=== PATIENT | female | born 1935 | race Caucasian/White ===

== ENCOUNTER 2017-04-18 00:23 | Inpatient (IN) | payer MEDICARE ==
[2017-04-18] MEDS ORDERED: traMADol TAB* 50 MG PO ONE (01:20)
[2017-04-18] MEDS ORDERED: NS 0.9% 1000 ML* 1,000 ML IV ONE (03:05)
[2017-04-18] MEDS ORDERED: Docusate CAP* 100 MG PO PRN (04:36)
[2017-04-18] MEDS ORDERED: Al Hydrox/Mg Hydrox/Simet LIQ* 30 ML UDC PO PRN (04:36)
[2017-04-18] MEDS ORDERED: Acetaminophen TAB* 325 MG PO PRN (04:36)
[2017-04-18] MEDS ORDERED: Ondansetron INJ* 2 MG/ML VIAL IV PRN ×2 (04:36→17:28)
[2017-04-18] MEDS ORDERED: Morphine INJ* 2 MG/ML 1 ML SYRINGE (TWO MG - NEW SYRINGE VERSION) IV PRN (04:40)
[2017-04-18 04:42] LABS: Hematocrit 40 % (35-47); Hemoglobin 13.9 g/dl (12.0-16.0); Mean Corpuscular HGB Conc 34 g/dl (31-36); Mean Corpuscular Hemoglobin 33 pg (27-31); Mean Corpuscular Volume 97 fL (80-97); Mean Platelet Volume 7 um3 (7.4-10.4); Red Blood Count 4.16 10^6/ul (4.0-5.4); Red Cell Distribution Width 13 % (10.5-15); White Blood Count 9.9 10^3/ul (3.5-10.8)
[2017-04-18 05:02] LABS: Albumin 3.7 g/dL (3.2-5.2); BUN/Creatinine Ratio 22.7 (8-20); Calcium 9.3 mg/dL (8.6-10.3); EGFR African American 95.9 (>60); EGFR Non-African American 74.5 (>60); Total Bilirubin 0.5 mg/dL (0.2-1.0); Total Protein 6.7 g/dL (6.4-8.9)
[2017-04-18] MEDS ORDERED: Heparin VIAL(*) 5000 UNITS/ML VIAL (FIVE THOUSAND) SUBCUT SCH (06:00)
--- NOTE | 2017-04-18 06:17 | ED ---
Babatunde Bell Gabriel scribed for Shawn Sheridan on 04/18/17 at 0156 . Lower Extremity - HPI Summary HPI Summary: This patient is a 81 year old F BIBA to [facility] with a chief complaint of LLE pain since 2300. The patient rates the pain 6/10 in severity. Patient states that she heard snap in left femur when she moved in her bed and is now unable to move that leg. - History of Current Complaint Chief Complaint: EDExtremityLower Stated Complaint: LEFT UPPER LEG PAIN Time Seen by Provider: 04/18/17 01:07 Hx Obtained From: Patient Mechanism Of Injury: Other - rolling in bed Onset of Pain: Immediate Onset/Duration: Still Present Severity Currently: Moderate Pain Intensity: 6 Pain Scale Used: 0-10 Numeric Timing: Constant - Allergies/Home Medications Allergies/Adverse Reactions: Allergies Allergy/AdvReac Type Severity Reaction Status Date / Time Amoxicillin [From Augmentin] Allergy Severe Hives Verified 04/18/17 00:44 Clavulanic Acid Allergy Severe Hives Verified 04/18/17 00:44 [From Augmentin] Metronidazole Allergy Diarrhea Verified 04/18/17 00:44 Azithromycin [From Zithromax] AdvReac See Comment Verified 04/18/17 00:44 PMH/Surg Hx/FS Hx/Imm Hx Previously Healthy: No Endocrine/Hematology History: Denies: Hx Diabetes Cardiovascular History: Reports: Hx Hypercholesterolemia Denies: Hx Hypertension, Hx Pacemaker/ICD GI History: Reports: Other GI Disorders - H. 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, eye lid, chest - Surgical History Surgery Procedure, Year, and Place: BILATERAL CATARACT; NASAL SX FOR BASAL CELL CARCINOMA - Immunization History Date of Tetanus Vaccine: utd Date of Influenza Vaccine: 2016 Infectious Disease History: No Infectious Disease History: Denies: Traveled Outside the [place] in Last 30 Days - Family History Known Family History: Negative: Cardiac Disease - Social History Lives: Alone Alcohol Use: Daily Alcohol Amount: 1 glass wine with dinner Substance Use Type: Reports: None Smoking Status (MU): Never Smoked Tobacco Review of Systems Positive: Other - pain in LLE Negative: Slurred Speech All Other Systems Reviewed And Are Negative: Yes Physical Exam - Summary Physical Exam Summary: Appearance: Well appearing, no pain distress Skin: warm, dry, reflects adequate perfusion Head/face: normal Eyes: EOMI, OCTAVIANO ENT: normal Neck: supple, non-tender Respiratory: CTA, breath sounds present Cardiovascular: RRR, pulses symmetrical Abdomen: non-tender, soft Bowel: present Musculoskeletal: normal, strength/ROM intact Extremities: tenderness over the left thigh and restricted ROM of LLE. No neurovascular deficits. Neuro: normal, sensory motor intact, A&Ox3 Triage Information Reviewed: Yes Vital Signs On Initial Exam: Initial Vitals Temp Pulse Resp BP Pulse Ox 99.2 F 80 18 107/42 98 04/18/17 00:43 04/18/17 00:43 04/18/17 00:43 04/18/17 00:43 04/18/17 00:43 Vital Signs Reviewed: Yes - Rajni Coma Scale Coma Scale Total: 15 Diagnostics - Vital Signs Vital Signs Temp Pulse Resp BP Pulse Ox 04/18/17 00:43 99.2 F 80 18 107/42 98 - Laboratory Lab Results: Lab Results 04/18/17 04/18/17 04/18/17 Range/Units 04:30 04:30 04:30 WBC 9.9 (3.5-10.8) 10^3/ul RBC 4.16 (4.0-5.4) 10^6/ul Hgb 13.9 (12.0-16.0) g/dl Hct 40 (35-47) % MCV 97 (80-97) fL MCH 33 H (27-31) pg MCHC 34 (31-36) g/dl RDW 13 (10.5-15) % Plt Count 234 (150-450) 10^3/ul MPV 7 L (7.4-10.4) um3 Neut % (Auto) 74.4 (38-83) % Lymph % (Auto) 18.0 L (25-47) % Clinch % (Auto) 5.9 (1-9) % Eos % (Auto) 0.8 (0-6) % Baso % (Auto) 0.9 (0-2) % Absolute Neuts (auto) 7.3 (1.5-7.7) 10^3/ul Absolute Lymphs (auto) 1.8 (1.0-4.8) 10^3/ul Absolute Monos (auto) 0.6 (0-0.8) 10^3/ul Absolute Eos (auto) 0.1 (0-0.6) 10^3/ul Absolute Basos (auto) 0.1 (0-0.2) 10^3/ul Absolute Nucleated RBC 0 10^3/ul Nucleated RBC % 0 INR (Anticoag Therapy) 0.98 (0.89-1.11) APTT 26.1 (26.0-36.3) seconds Sodium 137 (133-145) mmol/L Potassium 4.0 (3.5-5.0) mmol/L Chloride 103 (101-111) mmol/L Carbon Dioxide 26 (22-32) mmol/L Anion Gap 8 (2-11) mmol/L BUN 17 (6-24) mg/dL Creatinine 0.75 (0.51-0.95) mg/dL Est GFR ( Amer) 95.9 (>60) Est GFR (Non-Af Amer) 74.5 (>60) BUN/Creatinine Ratio 22.7 H (8-20) Glucose 121 H (70-100) mg/dL Calcium 9.3 (8.6-10.3) mg/dL Total Bilirubin 0.50 (0.2-1.0) mg/dL AST 21 (13-39) U/L ALT 17 (7-52) U/L Alkaline Phosphatase 67 (34-104) U/L Total Protein 6.7 (6.4-8.9) g/dL Albumin 3.7 (3.2-5.2) g/dL Globulin 3.0 (2-4) g/dL Albumin/Globulin Ratio 1.2 (1-3) Blood Type Antibody Screen 04/18/17 Range/Units 04:30 WBC (3.5-10.8) 10^3/ul RBC (4.0-5.4) 10^6/ul Hgb (12.0-16.0) g/dl Hct (35-47) % MCV (80-97) fL MCH (27-31) pg MCHC (31-36) g/dl RDW (10.5-15) % Plt Count (150-450) 10^3/ul MPV (7.4-10.4) um3 Neut % (Auto) (38-83) % Lymph % (Auto) (25-47) % Clinch % (Auto) (1-9) % Eos % (Auto) (0-6) % Baso % (Auto) (0-2) % Absolute Neuts (auto) (1.5-7.7) 10^3/ul Absolute Lymphs (auto) (1.0-4.8) 10^3/ul Absolute Monos (auto) (0-0.8) 10^3/ul Absolute Eos (auto) (0-0.6) 10^3/ul Absolute Basos (auto) (0-0.2) 10^3/ul Absolute Nucleated RBC 10^3/ul Nucleated RBC % INR (Anticoag Therapy) (0.89-1.11) APTT (26.0-36.3) seconds Sodium (133-145) mmol/L Potassium (3.5-5.0) mmol/L Chloride (101-111) mmol/L Carbon Dioxide (22-32) mmol/L Anion Gap (2-11) mmol/L BUN (6-24) mg/dL Creatinine (0.51-0.95) mg/dL Est GFR ( Amer) (>60) Est GFR (Non-Af Amer) (>60) BUN/Creatinine Ratio (8-20) Glucose (70-100) mg/dL Calcium (8.6-10.3) mg/dL Total Bilirubin (0.2-1.0) mg/dL AST (13-39) U/L ALT (7-52) U/L Alkaline Phosphatase (34-104) U/L Total Protein (6.4-8.9) g/dL Albumin (3.2-5.2) g/dL Globulin (2-4) g/dL Albumin/Globulin Ratio (1-3) Blood Type A Positive Antibody Screen Negative Result Diagrams: 04/18/17 04:30 04/18/17 04:30 Lab Statement: Any lab studies that have been ordered have been reviewed, and results considered in the medical decision making process. - Radiology CXR Radiology Interpretation Completed By: ED Physician - Mass in left upper lobe pelvis xray Radiology Interpretation Completed By: ED Physician - no acute disease Femur Xray Radiology Interpretation Completed By: ED Physician - Fracture of the left femur - EKG 4:41 Cardiac Rate: NL EKG Rhythm: Sinus Rhythm - 78BPM EKG Interpretation: no acute changes Lower Extremity Course/Dx - Course Assessment/Plan: This patient is a 81 year old F BIBA to [facility] with a chief complaint of LLE pain since 2300. An EKG reveals NSR at 78 BPM. CXR reveals, left upper lobe mass. Femur Xray left femur fracture. Pelvis Xray no acute disease. Blood was drawn with no significant abnormalities. In the ED course the patient was given IV fluids, morphine, and tramadol. We discussed patient care with Dr. Jean and they recommended agreed to admit the patient for a left femur fracture and a lung mass. Patient will be admitted with follow up from Dr. Jean. The patient is agreeable with this plan. - Diagnoses Differential Diagnosis/HQI/PQRI: Positive: Contusion, Sprain Provider Diagnoses: Left femoral shaft fracture, Lung mass Discharge - Discharge Plan Condition: Stable Disposition: ADMITTED TO [facility] documentation as recorded by the Babatunde lira Gabriel accurately reflects the service I personally performed and the decisions made by Fatimah myers Emmanuel.
[2017-04-18 06:45] LABS: Urine Bacteria Absent (Absent); Urine Bilirubin Negative (Negative); Urine Glucose Negative (Negative); Urine Nitrite Negative (Negative)
--- NOTE | 2017-04-18 07:38 | HP ---
CC: Savannah Egan MD * HISTORY AND PHYSICAL: DATE OF ADMISSION: 04/18/17 TIME OF EVALUATION: 0400 PRIMARY CARE PHYSICIAN: Savannah Egan MD CHIEF COMPLAINT: Left leg pain. HISTORY OF PRESENT ILLNESS: This is a 81-year-old female with an unremarkable past medical history who states she rolled over in bed last evening when she heard a snap on her left leg with significant amount of pain. She states she was going to try to get up to ambulate to the bathroom to take some Tylenol, but she was unable to weight bear. She then got down on the floor and thought she could crawl to the bathroom to get Tylenol, but relates the pain was too significant to even move. Luckily she was close to her phone and she was able to call EMS for further evaluation. She states that she is very careful when she rolls over in bed from side to side slowly due to her significant amount of arthritis. She states she had the cat on her legs and she was a little bit more faster and aggressive with her rolling, and then that is when she heard the snap in her left leg. She has no history of broken bones in the past. She states she took the tramadol this evening in the emergency room, and her pain is better controlled but still present. She is worried about the side effects of taking morphine, and is hesitant to do so. She denies any chest pain or shortness of breath. No nausea, vomiting. No abdominal pain. She states she ambulates frequently. She does Alvaro-Chi and tries to remain very active. Otherwise remaining review of systems negative in the emergency room. The patient had imaging, found to have a femur fracture and was referred to the hospitalist service for further evaluation. She was given Tramadol 50 mg p.o. PAST MEDICAL HISTORY: Arthritis. MEDICATIONS: 1. The patient takes several supplements. 2. She takes Tylenol as needed. ALLERGIES: AMOXICILLIN, CLAVULANIC ACID, METRONIDAZOLE, AZITHROMYCIN. FAMILY HISTORY: Mother at age 89 from gastric cancer. Father at age 91 from old age. SOCIAL HISTORY: The patient lives alone. She is independent of her ADLs. Her healthcare proxy is her son and her daughter. Codes status is full code. No tobacco or illicit drug use. She occasionally has a glass of wine. REVIEW OF SYSTEMS: A 14-point review of systems reviewed, pertinent positives and negatives as mentioned in the HPI; otherwise negative. PHYSICAL EXAMINATION GENERAL: No acute distress, resting comfortably. VITAL SIGNS: Temp 99.2, pulse rate 80, respiratory rate 18, oxygen saturation 98 % on room air, blood pressure 107/42. HEENT: Head normocephalic. Pupils are equal and reactive. Anicteric. Oropharynx - mucous membranes are dry. NECK: Supple. No lymphadenopathy RESPIRATORY: Diminished breath sounds. No wheeze, rhonchi, or rales. CARDIAC: Regular rate and rhythm. No murmurs, rubs or gallops. ABDOMEN: Soft, nontender, nondistended. EXTREMITIES: No clubbing, cyanosis or edema. +1 DP's bilateral. The patient with limited range of motion on her left lower lower extremity. Knee immobilizer in place. DIAGNOSTIC STUDIES/LAB DATA: White count 9.9, hemoglobin 13.9, hematocrit 40, platelets 234. Remaining blood work is pending. Femur x-ray shows fracture per my wet read in two locations. Chest x-ray also looks to be a left upper lobe mass that is new from her chest x - ray in 2010. ASSESSMENT: This is a 81-year-old female with an unremarkable past medical history who suffered a femur fracture while rolling in bed. 1. Femur fracture. Assessment: This is concerning that just rolling created a femur fracture; and, with the chest x-ray findings that this a pathologic fracture. Plan: We will keep her NPO for now. Followup with ortho in the morning in case they want to do surgery for her fracture. We will also contact Oncology for further evaluation and workup of her mass; may start with pulmonary evaluation. We will hold off on further evaluation at this time and defer to the morning team. In terms of her pain control, we will continue the Tramadol as that does seem to help and Tylenol. We will give her morphine for break- through pain, and start her on a bowel regimen. 2. FEN: We will place her on IV fluids. Keep her NPO for now. 3. DVT prophylaxis: The patient's score is high risk. We will place on heparin subcutaneously t.i.d. 4. Code status: Full code. TIME SPENT: Patient time greater than 60 minutes were spent doing history and physical, more than half the time spent in direct patient contact. [id number]/[facility] #: [id number] [facility]
--- NOTE | 2017-04-18 07:56 | RAD ---
INDICATION: Left hip pain after rolling over in bed COMPARISON: Right hip radiograph November 01, 2016 TECHNIQUE: An AP view of the pelvis and 6 views of the left femur were obtained. FINDINGS: AP view of the pelvis shows degenerative changes of the bilateral hips that includes joint space narrowing, sclerotic change of the articulating surfaces, marginal osteophyte formation and right greater than left bony remodeling of the femoral heads. There is cortical discontinuity at the right superior pubic ramus which appears similar to the prior hip radiograph. On the lateral view of the diaphyseal and distal metaphysis of the left femur there are obliquely oriented lucent lines these are faintly visible on the AP view of the femur at the level of the diaphysis. The bones are otherwise intact and appropriately aligned. IMPRESSION: 1. Degenerative changes of bilateral hips. 2. Cortical discontinuity at the right superior pubic ramus appears similar to the November 01, 2016 pelvis radiograph. Please correlate to pain focal to the right symphysis pubis. 3. Lucent line seen overlying the mid-level and distal left femur which could represent a nondisplaced fracture in the correct clinical setting. Alternatively this is simply a nutrient vessel.
--- NOTE | 2017-04-18 09:55 | PN ---
Progress Note - Progress Note Date of Service: 04/18/17 Note: Spoke with radiology. Patient has a large mass of her chest suspicious for lung cancer. Suggest CT chest, abd, pelvis with contrast. Message relayed to Dr. Paiz.
--- NOTE | 2017-04-18 10:01 | RAD ---
Indication: Evaluate for femur fracture. Correlation is made with previous x-ray done earlier the same day. CT of the left femur was obtained in the axial plane. Sagittal and coronal reconstructed images were obtained. There is a cortical defect in the lateral half of the femur consistent with a nondisplaced fracture of the femur. No significant displacement is noted. There is some adjacent soft tissue hematoma noted. There is some bone marrow replacement in this area. Additionally the bony windows demonstrate some areas of thinning of the cortex in the anterior portion of the midshaft of the femur. Areas of lucency are noted and this may represent a pathologic fracture. IMPRESSION: Nondisplaced fracture mid shaft of the femur with adjacent hematoma. There is suggestion of some bone marrow replacement noted with some irregularity and lucency within the cortex at the level of the fracture and underlying pathologic fracture should BE considered. Differential diagnosis includes metastatic lesion or myeloma. Other bony metabolic diseases are not excluded..
--- NOTE | 2017-04-18 10:24 | RAD ---
INDICATION: Femur fracture. COMPARISON: Comparison is made with a prior chest x-ray study from February 02, 2015. TECHNIQUE: A portable view of the chest was obtained. FINDINGS: The heart is within normal limits in size. There is a large mass in the left lung measuring 9.8 x 8.6 cm in size. This projects over the left hilum. The lungs are otherwise clear. No pleural effusion is seen. The results of this examination were discussed the patient's PA. IMPRESSION: LARGE MASS IN THE LEFT LUNG. RECOMMEND A CT OF THE CHEST, ABDOMEN AND PELVIS WITH CONTRAST.
[2017-04-18] MEDS: traMADol TAB* 50 MG PO PRN (11:45)
--- NOTE | 2017-04-18 12:44 | HP ---
AMENDED REPORT NOW INCLUDES COSIGNER DESIGNATION - ESIGNED BEFORE ADJUSTMENT PREOPERATIVE HISTORY AND PHYSICAL: DATE OF ADMISSION: 04/18/17 PROVIDER: Crescencio Mitchell MD * (DICTATED BY CHERELLE MOISE) PRIMARY CARE PROVIDER: Savannah Egan MD CHIEF COMPLAINT: Upon arrival to the emergency room, left leg pain. HISTORY OF PRESENT ILLNESS: This is a 81-year-old female with an unremarkable past medical history who states that she rolled over in bed last evening when she heard a snap of her left leg associated with a significant amount of pain. She had no trauma to the area. She states that her cat was lying on her legs and she generally does take caution when rolling over due to a history of arthritis. After hearing the snap, she got up to try and ambulate to the bathroom, did take some Tylenol, but she was unable to bear weight. She was able to reach a phone and called EMS. She has no history of falls or broken bones. The patient denies any trauma to the area. She does note that her left hip felt "funny" in position prior to hearing the snap. She participates in leti chi twice a week and chair yoga twice a week, remaining active. She generally cares for herself. She lives on her own and completes her ADLs independently. She does have children, but they do not live in this state. Her healthcare proxy is her son and her daughter. Today, the patient's pain has been well controlled through use of tramadol. She is hesitant to take any stronger narcotic pain medications and she does not like how they make her feel and she generally does not like to take medications when not needed. She has no history of heart disease or pulmonary disease that she knows of. She has never had a heart attack or stroke. She does not complain of any easy bleeding. She does have easy bruising, which she associates with age. She has had anesthesia once in the past with no negative side effects. The patient denies today any dizziness, chest pain, shortness of breath, left leg pain, numbness or tingling of the left leg, fevers, chills, or abdominal upset. PAST MEDICAL HISTORY: Significant for arthritis. PAST SURGICAL HISTORY: Nasal flap for basal cell carcinoma of the nose without complication. MEDICATIONS: 1. Multivitamin. 2. Calcium tablet. 3. Magnesium tablet. 4. Aspirin 81 mg. 5. Tylenol p.r.n. ALLERGIES: AMOXICILLIN and AUGMENTIN, both resulting in hives. METRONIDAZOLE making the patient feel lightheaded, AZITHROMYCIN resulting in loss of smell for 2 years, which gradually returned. FAMILY HISTORY: Mother is , has a history of gastric cancer. Father per the patient from old age. SOCIAL HISTORY: Lives alone and cares for self. Full code status. No tobacco use. No illicit drug use. No past history of tobacco use, illicit drug use. Drinks one-half cup of wine with dinner daily. REVIEW OF SYSTEMS: General: Denies fevers, chills. No known anesthesia problems. HEENT: Denies headache, lightheadedness, or syncopal episode. Cardiothoracic: Negative for chest pain, heart palpitations, irregular heart beats or edema. Pulmonary: Negative for shortness of breath. Negative for chronic cough. Negative for COPD or asthma. GI: No nausea, vomiting, diarrhea , or constipation. : No dysuria. Musculoskeletal: Chronic arthritic pain. No fracture history aside from current acute problem. Neuro: No paresthesias, numbness, strokes. Integumentary: No abrasions, lesions, rashes, or open sores. Endocrine: No diabetes or thyroid issues. Hematology: No easy bleeding, DVT or PE history. Does have a history of easy bruising. PHYSICAL EXAMINATION GENERAL: Alert and oriented, 81-year-old in no acute distress with appropriate mood and affect. VITALS: Temperature 98.8 orally, pulse 79 beats per minute, respiratory rate 16 , O2 saturation 97% on room air, blood pressure 114/49. HEENT: Normocephalic, atraumatic. Hearing and vision are grossly intact. Extraocular movements are intact. PULMONARY: Normal work of breathing. No wheezes, rales, or rhonchi appreciated. CARDIO: Regular rate and rhythm. S1, S2. No murmurs appreciated. No pedal edema. MUSCULOSKELETAL: Left leg in immobilizer. No obvious deformity or rotation in this position. No range of motion was attempted with the left lower extremity due to pain. Dorsi flexion and plantar flexion are intact bilaterally. Sensation to light touch is intact throughout bilateral lower extremities. VASCULAR: Dorsalis pedis and posterior tibial pulses are 2+ and symmetric bilaterally. IMPRESSION: Left femur fracture in addition to a large mass in left lung. PLAN: Dr. Mitchell to take the patient to the OR at roughly 5 o'clock today, for left femur ORIF. Hospitalist service will continue to work up the lung mass and will see the patient prior to procedure. CHERELLE MOISE [id number]/[facility] #: [id number] NILSA
[2017-04-18] MEDS ORDERED: ceFAZolin 2 GM PREMIX (*) 2 GM/50 ML BAG IVPB ONE (17:02)
[2017-04-18] MEDS ORDERED: HYDROcodone/ACETAMIN 5-325 MG* 1 TAB PO PRN (17:28)
[2017-04-18] MEDS ORDERED: PROCHLORPERAZINE INJ 5 MG/ML 2 ML VIAL IV PRN (17:28)
[2017-04-18] MEDS ORDERED: oxyCODONE/Acetamin 5/325 MG* TAB PO PRN (17:28)
[2017-04-18] MEDS ORDERED: fentaNYL* 50 MCG/ML 2 ML VIAL (100 MCG VIAL) IV PRN (17:28)
[2017-04-18] MEDS ORDERED: Midazolam* 1 MG/ML 2 ML VIAL (2 MG) ONE (17:38)
[2017-04-18] MEDS ORDERED: fentaNYL* 50 MCG/ML 2 ML VIAL (100 MCG VIAL) ONE ×3 (17:38→21:33)
[2017-04-18] MEDS ORDERED: Bupivacaine 0.5% SDV PF* 30 ML VIAL ONE (17:40)
--- NOTE | 2017-04-18 17:45 | PN ---
Subjective Date of Service: 04/18/17 Interval History: Pt seen and examined. Pain with movement. No SOB. Hx of osteopenia w/ gradual worsening. Objective Active Medications: Acetaminophen (Tylenol Tab*) 650 mg PO Q4H PRN PRN Reason: FEVER/PAIN Hydrocodone Bitart/Acetaminophen ([place]inford 5-325 Tab*) 1 tab PO ONCE PRN PRN Reason: PAIN - MODERATE Stop: 04/18/17 21:30 Al Hydrox/Mg Hydrox/Simethicone (Maalox Plus*) 30 ml PO Q6H PRN PRN Reason: INDIGESTION Docusate Sodium (Colace Cap*) 100 mg PO BID PRN PRN Reason: CONSTIPATION Fentanyl Citrate (Fentanyl*) 50 mcg IV Q5M PRN PRN Reason: PAIN - MODERATE Stop: 04/18/17 21:30 Sodium Chloride (Ns 0.9% 1000 Ml*) 1,000 mls @ 100 mls/hr IV PER RATE ZEFERINO Cefazolin Sodium/Dextrose (Kefzol 2 Gm Premix(*)) 2 gm in 50 mls @ 100 mls/hr IVPB ONCALL ONE Stop: 04/19/17 08:29 Morphine Sulfate (Morphine Inj (Syringe)*) 2 mg IV Q4H PRN PRN Reason: PAIN - MILD Last Admin: 04/18/17 07:14 Dose: 2 mg Ondansetron HCl (Zofran Inj*) 4 mg IV Q4H PRN PRN Reason: NAUSEA/VOMITING Ondansetron HCl (Zofran Inj*) 4 mg IV ONCE PRN PRN Reason: NAUSEA/VOMITING Stop: 04/18/17 21:30 Oxycodone/Acetaminophen (Percocet 5/325 Tab*) 1 tab PO ONCE PRN PRN Reason: PAIN - MODERATE Stop: 04/18/17 21:30 Prochlorperazine Edisylate (Compazine Inj*) 5 mg IV ONCE PRN PRN Reason: NAUSEA/VOMITING Stop: 04/18/17 21:30 Senna (Senokot Tab*) 1 tab PO BID PRN PRN Reason: CONSTIPATION Tramadol HCl (Ultram*) 50 mg PO Q6H PRN PRN Reason: PAIN Last Admin: 04/18/17 11:45 Dose: 50 mg Vital Signs 04/18/17 04/18/17 04/18/17 05:27 05:28 05:30 Temperature Pulse Rate 80 80 79 Respiratory Rate Blood Pressure 115/43 (mmHg) O2 Sat by Pulse 92 92 92 Oximetry 04/18/17 04/18/17 04/18/17 06:00 06:05 07:14 Temperature 98.8 F Pulse Rate 79 Respiratory 16 16 16 Rate Blood Pressure 114/49 (mmHg) O2 Sat by Pulse 97 Oximetry 04/18/17 04/18/17 04/18/17 07:15 09:47 11:36 Temperature 98.3 F Pulse Rate 80 Respiratory 16 16 17 Rate Blood Pressure 118/56 (mmHg) O2 Sat by Pulse 96 Oximetry 04/18/17 04/18/17 04/18/17 11:45 14:00 15:21 Temperature 98.8 F Pulse Rate 77 Respiratory 16 14 11 Rate Blood Pressure 116/51 (mmHg) O2 Sat by Pulse 94 Oximetry Oxygen Devices in Use Now: None Result Diagrams: 04/18/17 04:30 04/18/17 04:30 Additional Lab and Data: Lab Results 04/18/17 04/18/17 04/18/17 Range/Units 04:30 04:30 04:30 WBC 9.9 (3.5-10.8) 10^3/ul RBC 4.16 (4.0-5.4) 10^6/ul Hgb 13.9 (12.0-16.0) g/dl Hct 40 (35-47) % MCV 97 (80-97) fL MCH 33 H (27-31) pg MCHC 34 (31-36) g/dl RDW 13 (10.5-15) % Plt Count 234 (150-450) 10^3/ul MPV 7 L (7.4-10.4) um3 Neut % (Auto) 74.4 (38-83) % Lymph % (Auto) 18.0 L (25-47) % [place] % (Auto) 5.9 (1-9) % Eos % (Auto) 0.8 (0-6) % Baso % (Auto) 0.9 (0-2) % Absolute Neuts (auto) 7.3 (1.5-7.7) 10^3/ul Absolute Lymphs (auto) 1.8 (1.0-4.8) 10^3/ul Absolute Monos (auto) 0.6 (0-0.8) 10^3/ul Absolute Eos (auto) 0.1 (0-0.6) 10^3/ul Absolute Basos (auto) 0.1 (0-0.2) 10^3/ul Absolute Nucleated RBC 0 10^3/ul Nucleated RBC % 0 INR (Anticoag Therapy) 0.98 (0.89-1.11) APTT 26.1 (26.0-36.3) seconds Sodium 137 (133-145) mmol/L Potassium 4.0 (3.5-5.0) mmol/L Chloride 103 (101-111) mmol/L Carbon Dioxide 26 (22-32) mmol/L Anion Gap 8 (2-11) mmol/L BUN 17 (6-24) mg/dL Creatinine 0.75 (0.51-0.95) mg/dL Est GFR ( Amer) 95.9 (>60) Est GFR (Non-Af Amer) 74.5 (>60) BUN/Creatinine Ratio 22.7 H (8-20) Glucose 121 H (70-100) mg/dL Calcium 9.3 (8.6-10.3) mg/dL Total Bilirubin 0.50 (0.2-1.0) mg/dL AST 21 (13-39) U/L ALT 17 (7-52) U/L Alkaline Phosphatase 67 (34-104) U/L Total Protein 6.7 (6.4-8.9) g/dL Albumin 3.7 (3.2-5.2) g/dL Globulin 3.0 (2-4) g/dL Albumin/Globulin Ratio 1.2 (1-3) Blood Type Antibody Screen 04/18/17 Range/Units 04:30 WBC (3.5-10.8) 10^3/ul RBC (4.0-5.4) 10^6/ul Hgb (12.0-16.0) g/dl Hct (35-47) % MCV (80-97) fL MCH (27-31) pg MCHC (31-36) g/dl RDW (10.5-15) % Plt Count (150-450) 10^3/ul MPV (7.4-10.4) um3 Neut % (Auto) (38-83) % Lymph % (Auto) (25-47) % [place] % (Auto) (1-9) % Eos % (Auto) (0-6) % Baso % (Auto) (0-2) % Absolute Neuts (auto) (1.5-7.7) 10^3/ul Absolute Lymphs (auto) (1.0-4.8) 10^3/ul Absolute Monos (auto) (0-0.8) 10^3/ul Absolute Eos (auto) (0-0.6) 10^3/ul Absolute Basos (auto) (0-0.2) 10^3/ul Absolute Nucleated RBC 10^3/ul Nucleated RBC % INR (Anticoag Therapy) (0.89-1.11) APTT (26.0-36.3) seconds Sodium (133-145) mmol/L Potassium (3.5-5.0) mmol/L Chloride (101-111) mmol/L Carbon Dioxide (22-32) mmol/L Anion Gap (2-11) mmol/L BUN (6-24) mg/dL Creatinine (0.51-0.95) mg/dL Est GFR ( Amer) (>60) Est GFR (Non-Af Amer) (>60) BUN/Creatinine Ratio (8-20) Glucose (70-100) mg/dL Calcium (8.6-10.3) mg/dL Total Bilirubin (0.2-1.0) mg/dL AST (13-39) U/L ALT (7-52) U/L Alkaline Phosphatase (34-104) U/L Total Protein (6.4-8.9) g/dL Albumin (3.2-5.2) g/dL Globulin (2-4) g/dL Albumin/Globulin Ratio (1-3) Blood Type A Positive Antibody Screen Negative Assess/Plan/Problems-Billing Assessment: 81 yo female p/w left femur fracture with rolling in bed and large left lung mass. Suspicion for malignancy w/ pathological fracture. - femur repair tonight - CT chest abd pelvis with IV contrast - f/u heme/onc recs.
[2017-04-18] MEDS ORDERED: Propofol* 10 MG/ML 20 ML BTL IV PUSH ONE ×2 (19:06→19:12)
[2017-04-18] MEDS ORDERED: EPHEDrine (Pressors)* 50 MG/ML VIAL ONE (19:12)
[2017-04-18] MEDS ORDERED: Phenylephrine IV* 40 MCG/ML 10 ML SYRINGE ONE (19:23)
[2017-04-18] MEDS ORDERED: Ondansetron INJ* 2 MG/ML VIAL ONE (20:13)
--- NOTE | 2017-04-18 21:05 | RAD ---
INDICATION: Femoral rodding COMPARISON: CT April 10, 2017 FINDINGS: 71.8 seconds of fluoroscopy were provided for the orthopedics department. Fluoroscopic spot imaging of the left femur were obtained for operative control and show left femoral rodding . CPT II Codes: 6045F (fluoro time doc)
[2017-04-18] MEDS ORDERED: oxyCODONE/Acetamin 5/325 MG* TAB ONE (21:30)
[2017-04-18] MEDS: NS 0.9% 1000 ML* 1,000 ML IV SCH (22:41)
[2017-04-19] MEDS: traMADol TAB* 50 MG PO PRN (00:20)
[2017-04-19] MEDS: ceFAZolin 1 GM in Dextrose (*) 1 GM/50 ML BAG IVPB SCH ×3 (03:45→19:53)
[2017-04-19] MEDS ORDERED: oxyCODONE/Acetamin 5/325 MG* TAB ONE (04:21)
--- NOTE | 2017-04-19 07:57 | PN ---
Progress Note - Progress Note Date of Service: 04/19/17 SOAP: Subjective: []Patient seen at bedside. Her pain is well controlled. She has no chest pain, shortness of breath, fever, chills, nausea or leg numbness. Objective: [] Vital Signs Temp 97.5 F 04/19/17 02:05 Pulse 79 04/19/17 02:05 Resp 18 04/19/17 06:12 BP 118/49 04/19/17 02:05 Pulse Ox 100 04/19/17 05:27 Intake & Output 04/18/17 04/19/17 04/19/17 18:59 06:59 18:59 Intake Total 691 1400 Output Total 675 1650 Balance 16 -250 Intake: IV Fluids 691 1400 LR 1400 NS 691 Oral 0 0 Output: Urine 675 Silva 1550 Estimated Blood Loss 100 Laboratory Last Values WBC 9.9 10^3/ul (3.5-10.8) 04/18/17 04:30 RBC 4.16 10^6/ul (4.0-5.4) 04/18/17 04:30 Hgb 13.9 g/dl (12.0-16.0) 04/18/17 04:30 Hct 40 % (35-47) 04/18/17 04:30 MCV 97 fL (80-97) 04/18/17 04:30 MCH 33 pg (27-31) H 04/18/17 04:30 MCHC 34 g/dl (31-36) 04/18/17 04:30 RDW 13 % (10.5-15) 04/18/17 04:30 Plt Count 234 10^3/ul (150-450) 04/18/17 04:30 MPV 7 um3 (7.4-10.4) L 04/18/17 04:30 Neut % (Auto) 74.4 % (38-83) 04/18/17 04:30 Lymph % (Auto) 18.0 % (25-47) L 04/18/17 04:30 [place] % (Auto) 5.9 % (1-9) 04/18/17 04:30 Eos % (Auto) 0.8 % (0-6) 04/18/17 04:30 Baso % (Auto) 0.9 % (0-2) 04/18/17 04:30 Absolute Neuts (auto) 7.3 10^3/ul (1.5-7.7) 04/18/17 04:30 Absolute Lymphs (auto) 1.8 10^3/ul (1.0-4.8) 04/18/17 04:30 Absolute Monos (auto) 0.6 10^3/ul (0-0.8) 04/18/17 04:30 Absolute Eos (auto) 0.1 10^3/ul (0-0.6) 04/18/17 04:30 Absolute Basos (auto) 0.1 10^3/ul (0-0.2) 04/18/17 04:30 Absolute Nucleated RBC 0 10^3/ul 04/18/17 04:30 Nucleated RBC % 0 04/18/17 04:30 INR (Anticoag Therapy) 0.98 (0.89-1.11) 04/18/17 04:30 APTT 26.1 seconds (26.0-36.3) 04/18/17 04:30 Sodium 137 mmol/L (133-145) 04/18/17 04:30 Potassium 4.0 mmol/L (3.5-5.0) 04/18/17 04:30 Chloride 103 mmol/L (101-111) 04/18/17 04:30 Carbon Dioxide 26 mmol/L (22-32) 04/18/17 04:30 Anion Gap 8 mmol/L (2-11) 04/18/17 04:30 BUN 17 mg/dL (6-24) 04/18/17 04:30 Creatinine 0.75 mg/dL (0.51-0.95) 04/18/17 04:30 Est GFR ( Amer) 95.9 (>60) 04/18/17 04:30 Est GFR (Non-Af Amer) 74.5 (>60) 04/18/17 04:30 BUN/Creatinine Ratio 22.7 (8-20) H 04/18/17 04:30 Glucose 121 mg/dL (70-100) H 04/18/17 04:30 Calcium 9.3 mg/dL (8.6-10.3) 04/18/17 04:30 Total Bilirubin 0.50 mg/dL (0.2-1.0) 04/18/17 04:30 AST 21 U/L (13-39) 04/18/17 04:30 ALT 17 U/L (7-52) 04/18/17 04:30 Alkaline Phosphatase 67 U/L (34-104) 04/18/17 04:30 Total Protein 6.7 g/dL (6.4-8.9) 04/18/17 04:30 Albumin 3.7 g/dL (3.2-5.2) 04/18/17 04:30 Globulin 3.0 g/dL (2-4) 04/18/17 04:30 Albumin/Globulin Ratio 1.2 (1-3) 04/18/17 04:30 Urine Color Yellow 04/18/17 04:27 Urine Appearance Clear 04/18/17 04:27 Urine pH 7.0 (5-9) 04/18/17 04:27 Ur Specific [place] 1.011 (1.010-1.030) 04/18/17 04:27 Urine Protein Negative (Negative) 04/18/17 04:27 Urine Ketones Trace (Negative) H 04/18/17 04:27 Urine Blood 1+ (Negative) H 04/18/17 04:27 Urine Nitrate Negative (Negative) 04/18/17 04:27 Urine Bilirubin Negative (Negative) 04/18/17 04:27 Urine Urobilinogen Negative (Negative) 04/18/17 04:27 Ur Leukocyte Esterase Trace (Negative) H 04/18/17 04:27 Urine WBC (Auto) Trace(0-5/hpf) (Absent) 04/18/17 04:27 Urine RBC (Auto) 1+(3-5/hpf) (Absent) H 04/18/17 04:27 Urine Bacteria Absent (Absent) 04/18/17 04:27 Urine Glucose Negative (Negative) 04/18/17 04:27 Blood Type A Positive 04/18/17 04:30 Antibody Screen Negative 04/18/17 04:30 General: Well appearing, no acute distress LLE: immobilizer in place. No erythema proximally or distally. BL LE: calves supple and nontender without erythema, edema or palpable cords. Negative marty's sign. Sensation intact distally to light touch. DF/PF intact. DP/PT pulses 2+ Assessment: []POD 1 s/p left femoral rodding 04/18/17 Dr Mitchell Plan: []50% WB PT/OT Continued pain control DVT/PE prophylaxis: Heparin
[2017-04-19] MEDS ORDERED: ceFAZolin 2 GM PREMIX (*) 2 GM/50 ML BAG IVPB ONE (08:00)
[2017-04-19] MEDS ORDERED: Iohexol 300* (CONTRAST) 10 ML SDV IV ONE (08:05)
[2017-04-19] MEDS: oxyCODONE/Acetamin 5/325 MG* TAB PO PRN ×4 (08:12→21:46)
[2017-04-19] MEDS: Heparin VIAL(*) 5000 UNITS/ML VIAL (FIVE THOUSAND) SUBCUT SCH ×2 (08:12→16:31)
[2017-04-19] MEDS: NS 0.9% 1000 ML* 1,000 ML IV SCH ×2 (08:23→22:55)
--- NOTE | 2017-04-19 09:37 | OP ---
DATE OF OPERATION: 04/18/17 - ROOM #332 DATE OF : 39 SURGEON: Crescencio Mitchell MD TECHNICAL LABORATORY ASST: Emeli Diaz RPA ANESTHESIOLOGIST: Joceline Yeh MD ANESTHESIA: General. PRE-OPERATIVE DIAGNOSIS: Left femur fracture. POST-OPERATIVE DIAGNOSIS: Left femur fracture. OPERATIVE PROCEDURE: IM nailing, left femur fracture. ESTIMATED BLOOD LOSS: 25 cc. COMPLICATIONS: None. HARDWARE: [employer] retrograde nail with 2 distal screws, locking end cap and 1 proximal screw. SUMMARY: Ms. Atkinson is a 81-year-old female who, last night, had simply rolled over in bed and felt a snap in her left leg. 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 I actually had seen her 5 or 6 years ago to talk about the arthritis in the knees and she had continued to do leti chi, yoga and other very specific exercise program. She also had been on and off Fosamax as well. Even with the snap, she tried to put weight on the leg and was unable to and was brought to the emergency room here at [facility]. X-rays were taken, which had found a left femur fracture. She was admitted by the hospitalist service and I was consulted in the morning and she was then added on to the OR schedule. I discussed with her that a retrograde nail should work well as her fracture was below the isthmus of the femur and this would work well to gain control of that distal fragment and allow her to be up and about once again. She also has a newly diagnosed lung mass on the pre -operative CXR and there is the possibility this is a pathologic fracture as well. Risks of surgery such as infection, scar formation, stiffness, DVT, pulmonary embolism are some of the risks discussed. She had wished to proceed. DESCRIPTION OF PROCEDURE: The patient was brought to the OR and spinal anesthesia was attempted. This was unsuccessful and then LMA was placed. Silva catheter was then placed. Left leg was positioned on a bump so that I would have nice access to the distal femoral condyles and C-arm was brought into make sure that I could see the distal portion of the knee as well as proximally where I would need to put the proximal lock. This was nicely setup and I did not need to have the right leg abducted and the right leg was then wrapped with an Godwin wrap to the table. Left leg was very gently prepped as her fracture was nondisplaced and I wanted to keep it that way. Leg was then draped and C-arm was brought in and used to confirm that she was still nondisplaced. Skin over the incision medial on the patella was infiltrated using 0.5% Marcaine with 1% lidocaine with epinephrine. Incision was made down through the skin and subcutaneous tissues. Small bleeders encountered were ligated using electrocautery. Capsule was opened on the medial side of the patellar tendon and fat pad was also sharply incised. I did not plunge through , as I did not want catch any of the deeper structures by the knee. With the straight snap, I can inwards and spread open and this split the fat pad quite nicely. I could then following with my finger and feel the medial and lateral condyles as well as the intracondylar notch. Guidewire was then placed and run a little bit. This was checked by C-arm and the AP view looked good and on the lateral view, I was starting a little bit too posterior. Awl was then used, and I opened above where I had placed the guidewire, and I opened the canal in that position. Short guidewire was removed and the long guidewire was then placed. C-arm was then used to confirm that I was all the way up by the hip as well as nicely in the center of the canal. This was confirmed and the distal femur was then opened using the 12.5 drill. Reamers were then run beginning with the 10, coming all the way up to a 13. At the 13, I had a little bit of chatter, so an 11.5 x 38 cm shayan was called for. Portion of the guidewire sticking out was measured and she came to about a 39, so I thought a 38 would fit nicely. Shayan was placed on the table and assembled and shayan was then slid over the guidewire. I was able to work this in gently so that again would not displace the fracture. Once I was almost fully seated, I was able to countersink the end a little bit. C-arm was used to confirm the countersinking. Outrigger was then placed and the area for the locking screws was marked, infiltrated using the numbing medicine and a short stab incision was made. Soft tissues were bluntly divided using a straight snap, coming down into the joint. Guide was then placed against the bone and drill was run using the calibrated drill and feeling for when the resistance was lost. An 80-mm screw was called for and placed. Similarly, the medial lock was also placed in a similar fashion. Nice bite was obtained and the outrigger was disassembled and the distal knee looked like good. Attention was turned proximally. Area of the proximal lock was identified and adjusted until a perfect [place] was obtained. Skin anteriorly over the thigh was infiltrated with the Marcaine and lidocaine with epinephrine and a small stab incision was made just in the skin. Straight snap was plunged downwards until I hit bone and then spread a little bit, so I would have a pathway with the drill bit. Drill bit was placed and then adjusted until it appeared I would run directly through the lower hole in the shayan. This was then tapped a little bit and C-arm was checked and it appeared to be nicely seating. So drill was run and I could feel the cortices when I went through them. Depth gauge was used to measure and a 25-mm screw was called for. Screw was placed and C-arm was used to confirm that it came essentially into both cortices and that I was through that inferior hole. Fracture was then re-x-rayed as well and as was the distal portion of the femur. All x-rays were saved. Locking end cap was then placed in a nice bite was obtained. Wounds were irrigated using pulse lavage and the arthrotomy was repaired using interrupted 0-Vicryl sutures. Subcutaneous tissues were reapproximated using 2-0 Vicryl. Skin was closed using lin. Sterile dressing, Cryo-Cuff and the knee immobilizer was replaced in the OR. The patient had the LMA removed in the OR and was stable on transfer to the recovery room. [id number]/[facility] #: [id number] NILSA
[2017-04-19 10:35] LABS: Hematocrit 35 % (35-47); Hemoglobin 11.7 g/dl (12.0-16.0); Mean Corpuscular HGB Conc 34 g/dl (31-36); Mean Corpuscular Hemoglobin 33 pg (27-31); Mean Corpuscular Volume 99 fL (80-97); Mean Platelet Volume 6 um3 (7.4-10.4); Red Blood Count 3.54 10^6/ul (4.0-5.4); Red Cell Distribution Width 12 % (10.5-15); White Blood Count 7.5 10^3/ul (3.5-10.8)
[2017-04-19 11:04] LABS: EGFR African American 131.6 (>60); EGFR Non-African American 102.3 (>60); Potassium 4.1 mmol/L (3.5-5.0)
--- NOTE | 2017-04-19 11:14 | RAD ---
INDICATION: LEFT lung mass. Concern for malignancy. Post LEFT femoral rodding for fracture April 18, 2017. COMPARISON: April 18, 2017 chest radiograph. TECHNIQUE: Multidetector CT images were obtained from the lung apices to the ischial tuberosities with 80 mL Omnipaque 300 IV contrast. Oral contrast administered. CHEST REPORT: Small bilateral dependent pleural effusions with proportional atelectasis. LEFT suprahilar mass measuring up to 5.8 cm AP by 7.3 cm transverse involving the anterior segment of the LEFT upper lobe with suggestion of enhancement of solid elements and probable regions of necrosis. Suggestion of tumor extending into the anterior segmental bronchus of the LEFT upper lobe. The tumor is inseparable from the mediastinal margin. Associated peripheral small loculated LEFT anterior pleural effusion. Negative for pneumothorax. No discrete enlarged mediastinal lymph nodes. Negative for cardiomegaly or pericardial effusion. Tortuous although normal diameter thoracic aorta. Negative for suspicious thoracic osseous lesions. CHEST IMPRESSION: Anterior segment LEFT upper lobe mass. Consider bronchoscopic biopsy of the anterior segmental bronchus LEFT upper lobe. Alternatively the lesion would likely be amenable to ultrasound-guided fine-needle aspiration. ABDOMEN PELVIS REPORT: Mild intrahepatic biliary dilatation. The common bile duct appears normal in diameter. No CT abnormality of the distended gallbladder. Mildly atrophic pancreas without suspicious finding. Unremarkable spleen. Small medially and cephalad directed diverticulum at the second segment of the duodenum without suggestion of inflammatory change. No CT abnormality of the jejunal or ileal bowel loops or colon. Negative for ascites or free air. Small fat-containing supraumbilical midline ventral hernia without inflammatory change. Normal adrenal glands. Unremarkable kidneys with symmetric nephrograms and pyelograms. Unremarkable nondilated ureters. Catheterized decompressed urinary bladder. Unremarkable anteverted uterus and adnexal regions. Negative for lymphadenopathy. Mild atherosclerotic plaque of normal diameter abdominal aorta and iliac arteries. Physiologic distention of the IVC. Cutaneous iln at the anterior LEFT proximal thigh. LEFT femur IM misty partially visualized. Advanced osteoarthritis of the bilateral hips. Lumbar sacral spine degenerative spondylosis and facet joint osteoarthritis. No fracture or suspicious focal osseous lesions evident. ABDOMEN PELVIS IMPRESSION: 1. Nonspecific mild intrahepatic biliary dilatation without dilatation of the common bile duct. No lesion evident at the maddie hepatis. 2. No suspicious focal visceral lesions evident. 3. Negative for lymphadenopathy. 4. Negative for suspicious osseous lesions.
--- NOTE | 2017-04-19 11:18 | CONSULT ---
Consultation - Reason for Consultation Reason for Consultation: lung mass and questionable pathologic fracture Ordering Provider: Korin Jean Chief Complaint: hip pain History of Present Illness: 81 yo never smoker with PMH of arthritis presenting with a left femur fracture, concerning for pathologic fracture, and a left lung mass. Dafne reports that she was rolling over in bed and felt a snap in her left leg associated with marked pain. Imaging revealed a fracture in her proximal femur concerning for a pathologic fracture. CXR revealed a large LAYTON mass. She went to the OR last evening for ORIF and biopsy. She reports in the months leading up to this event feeling relatively well with the exception of bloating that they have not been able to "figure out". She reports an endoscopy and gastric emptying study with Dr. Lanza, both normal with the exception of being h. pylori positive. She did improve for a brief period of time after treatment before it recurred. She has lost 5 pounds over the last year and a half but has to "work hard" to keep weight on. She does have hip and back arthritis but denies pain there. She is very active doing leti chi and yoga several times per week. She lives alone with her son living in [facility] and her daughter in [place]. She denies headaches or diplopia. She has a long standing (6 years) cough in the morning that she relates to postnasal drip but denies productive cough, SOB or chest pain. Allergies/Medications Medication: Acetaminophen (Tylenol Tab*) 650 mg PO Q4H PRN PRN Reason: FEVER/PAIN Al Hydrox/Mg Hydrox/Simethicone (Maalox Plus*) 30 ml PO Q6H PRN PRN Reason: INDIGESTION Docusate Sodium (Colace Cap*) 100 mg PO BID PRN PRN Reason: CONSTIPATION Heparin Sodium (Porcine) (Heparin Vial(*)) 5,000 units SUBCUT Q8H [facility] Last Admin: 04/19/17 08:12 Dose: 5,000 units Sodium Chloride (Ns 0.9% 1000 Ml*) 1,000 mls @ 100 mls/hr IV PER RATE [facility] Last Admin: 04/19/17 08:23 Dose: 100 mls/hr Cefazolin Sodium/Dextrose (Kefzol 1 Gm In Dextrose Duplex (*)) 1 gm in 50 mls @ 200 mls/hr IVPB Q8H [facility] Stop: 04/19/17 20:14 Last Admin: 04/19/17 03:45 Dose: 200 mls/hr Morphine Sulfate (Morphine Inj (Syringe)*) 2 mg IV Q4H PRN PRN Reason: PAIN - MILD Last Admin: 04/18/17 07:14 Dose: 2 mg Ondansetron HCl (Zofran Inj*) 4 mg IV Q4H PRN PRN Reason: NAUSEA/VOMITING Oxycodone/Acetaminophen (Percocet 5/325 Tab*) 1 tab PO Q4H PRN PRN Reason: PAIN Last Admin: 04/19/17 08:12 Dose: 1 tab Senna (Senokot Tab*) 1 tab PO BID PRN PRN Reason: CONSTIPATION Tramadol HCl (Ultram*) 50 mg PO Q6H PRN PRN Reason: PAIN Last Admin: 04/19/17 00:20 Dose: 50 mg Allergies/Adverse Reactions: Allergies Allergy/AdvReac Type Severity Reaction Status Date / Time Amoxicillin [From Augmentin] Allergy Severe Hives Verified 04/18/17 00:44 Clavulanic Acid Allergy Severe Hives Verified 04/18/17 00:44 [From Augmentin] Metronidazole Allergy Diarrhea Verified 04/18/17 00:44 Azithromycin [From Zithromax] AdvReac See Comment Verified 04/18/17 00:44 History - Past Medical History Other History: arthritis. 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 lives alone, son and daughter in [facility] area. Review of Systems - Review of Systems Constitutional Symptoms: Positive: Weight Loss - 5 lbs Dermatology: Positive: Normal HEENT: Positive: Other - hard of hearing Eyes: Positive: Normal Thyroid: Positive: Normal Pulmonary: Positive: Other - morning cough she relates to postnasal drip Cardiology: Positive: Normal Gastroenterology: Positive: Other - bloating Genital - Urinary: Positive: Normal Musculoskeletal: Positive: Arthritis Endocrinology: Positive: Normal Neurology: Positive: Normal Psychiatry: Positive: Normal Physical Exam - Physical Exam Physical Examination: Vital Signs Temp Pulse Resp BP Pulse Ox 98.5 F 81 16 103/43 97 04/19/17 07:23 04/19/17 07:23 04/19/17 08:12 04/19/17 07:23 04/19/17 08:06 sitting up in bed in NAD clearly somewhat hard of hearing perr eomi op moist dec bs left apex s1 s2 nl soft nt +bs left left wrapped right warm A+O x 3, grossly nonfocal but did not ambulate no ALBAN Results - Lab Results Lab Results: 04/19/17 04/19/17 10:22 10:22 WBC 7.5 RBC 3.54 L Hgb 11.7 L Hct 35 MCV 99 H MCH 33 H MCHC 34 RDW 12 Plt Count 165 MPV 6 L Neut % (Auto) 76.2 Lymph % (Auto) 14.6 L [place] % (Auto) 8.1 Eos % (Auto) 0.6 Baso % (Auto) 0.5 Absolute Neuts (auto) 5.7 Absolute Lymphs (auto) 1.1 Absolute Monos (auto) 0.6 Absolute Eos (auto) 0 Absolute Basos (auto) 0 Absolute Nucleated RBC 0 Nucleated RBC % 0 Sodium 133 Potassium 4.1 Chloride 100 L Carbon Dioxide 29 Anion Gap 4 BUN 8 Creatinine 0.57 Est GFR ( Amer) 131.6 Est GFR (Non-Af Amer) 102.3 BUN/Creatinine Ratio 14.0 Glucose 130 H Calcium 8.0 L Assessment and Plan Impression: 81 yo F w no significant PMH in excellent general health with a newly diagnosed left femur fracture and a left upper lobe mass concerning for a malignant process. We discussed this at length. We reviewed that her treatment will very much depend on her diagnosis, with metastatic lung cancer obviously being of the biggest concern. If her fracture is in fact pathologic she will likely benefit from palliative RT to this region. I agree with CT C/A/P and she will likely need bone scan as an outpatient. If there is no definitive pathology from her femur repair I would pursue pulmonary consultation. We will follow closely with you during this hospitalization and I will see her as an outpatient. I did provider her with my business card.
[2017-04-19] MEDS: Senna TAB PO PRN (11:58)
--- NOTE | 2017-04-19 18:54 | PN ---
Subjective Date of Service: 04/19/17 Interval History: Pt feeling much better. CT w/o e/o LAD or mets. Pulm consulted for biopsy. No femur pathology apparently obtained. Objective Active Medications: Acetaminophen (Tylenol Tab*) 650 mg PO Q4H PRN PRN Reason: FEVER/PAIN Al Hydrox/Mg Hydrox/Simethicone (Maalox Plus*) 30 ml PO Q6H PRN PRN Reason: INDIGESTION Docusate Sodium (Colace Cap*) 100 mg PO BID PRN PRN Reason: CONSTIPATION Heparin Sodium (Porcine) (Heparin Vial(*)) 5,000 units SUBCUT Q8H [facility] Last Admin: 04/19/17 16:31 Dose: 5,000 units Sodium Chloride (Ns 0.9% 1000 Ml*) 1,000 mls @ 100 mls/hr IV PER RATE [facility] Last Admin: 04/19/17 08:23 Dose: 100 mls/hr Cefazolin Sodium/Dextrose (Kefzol 1 Gm In Dextrose Duplex (*)) 1 gm in 50 mls @ 200 mls/hr IVPB Q8H [facility] Stop: 04/19/17 20:14 Last Admin: 04/19/17 11:58 Dose: 200 mls/hr Morphine Sulfate (Morphine Inj (Syringe)*) 2 mg IV Q4H PRN PRN Reason: PAIN - MILD Last Admin: 04/18/17 07:14 Dose: 2 mg Ondansetron HCl (Zofran Inj*) 4 mg IV Q4H PRN PRN Reason: NAUSEA/VOMITING Oxycodone/Acetaminophen (Percocet 5/325 Tab*) 1 tab PO Q4H PRN PRN Reason: PAIN Last Admin: 04/19/17 16:31 Dose: 1 tab Senna (Senokot Tab*) 1 tab PO BID PRN PRN Reason: CONSTIPATION Last Admin: 04/19/17 11:58 Dose: 1 tab Tramadol HCl (Ultram*) 50 mg PO Q6H PRN PRN Reason: PAIN Last Admin: 04/19/17 00:20 Dose: 50 mg Vital Signs 04/18/17 04/18/17 04/18/17 21:05 21:10 21:15 Temperature 97.7 F Pulse Rate 94 92 92 Respiratory 20 14 16 Rate Blood Pressure 109/42 117/46 112/45 (mmHg) O2 Sat by Pulse 99 94 95 Oximetry 04/18/17 04/18/17 04/18/17 21:30 21:31 21:42 Temperature Pulse Rate 79 Respiratory 16 14 14 Rate Blood Pressure 115/44 (mmHg) O2 Sat by Pulse 97 Oximetry 04/18/17 04/18/17 04/18/17 21:45 22:00 22:17 Temperature 97.3 F Pulse Rate 85 80 81 Respiratory 16 14 14 Rate Blood Pressure 111/42 110/44 146/59 (mmHg) O2 Sat by Pulse 95 97 98 Oximetry 04/18/17 04/18/17 04/18/17 22:44 22:47 23:10 Temperature 97.3 F 97.3 F Pulse Rate 81 78 Respiratory 14 14 16 Rate Blood Pressure 146/59 118/49 (mmHg) O2 Sat by Pulse 97 100 Oximetry 04/18/17 04/18/17 04/19/17 23:29 23:59 00:08 Temperature 97.5 F Pulse Rate 83 Respiratory 14 14 16 Rate Blood Pressure 105/48 (mmHg) O2 Sat by Pulse 99 Oximetry 04/19/17 04/19/17 04/19/17 00:20 02:05 03:04 Temperature 97.5 F Pulse Rate 79 Respiratory 18 16 16 Rate Blood Pressure 118/49 (mmHg) O2 Sat by Pulse 100 Oximetry 04/19/17 04/19/17 04/19/17 04:23 05:27 06:12 Temperature Pulse Rate Respiratory 18 18 Rate Blood Pressure (mmHg) O2 Sat by Pulse 100 Oximetry 04/19/17 04/19/17 04/19/17 07:23 08:00 08:06 Temperature 98.5 F Pulse Rate 81 Respiratory 18 16 Rate Blood Pressure 103/43 (mmHg) O2 Sat by Pulse 97 97 Oximetry 04/19/17 04/19/17 04/19/17 08:12 11:58 12:15 Temperature 100.0 F Pulse Rate 79 Respiratory 16 16 18 Rate Blood Pressure 107/49 (mmHg) O2 Sat by Pulse 94 Oximetry 04/19/17 04/19/17 04/19/17 14:45 16:00 16:31 Temperature 97.9 F Pulse Rate 81 Respiratory 16 16 Rate Blood Pressure 98/48 (mmHg) O2 Sat by Pulse 95 95 Oximetry 04/19/17 16:38 Temperature Pulse Rate Respiratory 16 Rate Blood Pressure (mmHg) O2 Sat by Pulse Oximetry Oxygen Devices in Use Now: Nasal Cannula Appearance: NAD, lying in bed. Eyes: No Scleral Icterus, PERRLA Ears/Nose/Mouth/Throat: NL Teeth, Lips, Gums, Mucous Membranes Moist Neck: NL Appearance and Movements; NL JVP Respiratory: Symmetrical Chest Expansion and Respiratory Effort, Clear to Auscultation Cardiovascular: NL Sounds; No Murmurs; No JVD, RRR Abdominal: NL Sounds; No Tenderness; No Distention, No Hepatosplenomegaly Extremities: No Edema, No Clubbing, Cyanosis Skin: No Rash or Ulcers, No Nodules or Sclerosis Neurological: Alert and Oriented x 3, NL Sensation, NL Muscle Strength and Tone Result Diagrams: 04/19/17 10:22 04/19/17 10:22 Additional Lab and Data: Laboratory Results - last 24 hr 04/19/17 04/19/17 10:22 10:22 WBC 7.5 RBC 3.54 L Hgb 11.7 L Hct 35 MCV 99 H MCH 33 H MCHC 34 RDW 12 Plt Count 165 MPV 6 L Neut % (Auto) 76.2 Lymph % (Auto) 14.6 L [place] % (Auto) 8.1 Eos % (Auto) 0.6 Baso % (Auto) 0.5 Absolute Neuts (auto) 5.7 Absolute Lymphs (auto) 1.1 Absolute Monos (auto) 0.6 Absolute Eos (auto) 0 Absolute Basos (auto) 0 Absolute Nucleated RBC 0 Nucleated RBC % 0 Sodium 133 Potassium 4.1 Chloride 100 L Carbon Dioxide 29 Anion Gap 4 BUN 8 Creatinine 0.57 Est GFR ( Amer) 131.6 Est GFR (Non-Af Amer) 102.3 BUN/Creatinine Ratio 14.0 Glucose 130 H Calcium 8.0 L Microbiology and Other Data: Microbiology 04/18/17 04:27 Urine Urine Culture - Final Assess/Plan/Problems-Billing Assessment: 81 yo female p/w left mid shaft femur fracture with rolling in bed and large left lung mass. Suspicion for malignancy w/ pathological fracture. - Patient Problems (1) Left femoral shaft fracture Current Visit: Yes Status: Acute Code(s): S72.302A - UNSP FRACTURE OF SHAFT OF LEFT FEMUR, INIT FOR CLOS FX SNOMED Code(s): 93092313 Comment: suspect pathologic fracture. s/p repair. PT/OT, likely will need PMRU vs SNF. percosets for pain control per ortho DVT ppx per ortho. (2) Lung mass Current Visit: Yes Status: Acute Code(s): R91.8 - OTHER NONSPECIFIC ABNORMAL FINDING OF LUNG FIELD SNOMED Code(s): 892277231 Comment: Appreciate heme/onc and pulmonary recs no pathology apparently obtained during femur repair lung biopsy requested. Per Dr. Randhawa may not be able to be obtained until next week (as outpatient). Dr Randhawa has orderd US guided biopsy. With planned EBUS for further staging next week. Will make npo midnight. bone scan as outpatient consideration for palliative bone radiation but don't have tissue confirmation Status and Disposition: medicine inpatient. Attending: Eleazar Paiz
--- NOTE | 2017-04-19 20:44 | CONS ---
PULMONARY CONSULTATION REPORT: DATE OF CONSULTATION: 04/19/17 CONSULTATION REQUESTED BY: Eleazar Paiz MD. REASON FOR CONSULTATION: Evaluation of lung mass. HISTORY OF PRESENT ILLNESS: The patient is a 81-year-old female with no significant past medical history other than arthritis, who presented with left femur fracture, status post ORIF and biopsy, biopsy has been unrevealing. Chest x- ray also revealed large left upper lobe mass, which was further evaluated with CT chest. I have personally reviewed chest x-ray and CT scan of the chest. Patient noted to have large lung mass in the suprahilar region on the left measuring 5.8 x 7.3 cm involving the anterior segment of left upper lobe and also probably involving left upper lobe with possible endobronchial lesion. No significant mediastinal nodes were noted. Small amount of pleural effusion bilaterally was noted. Abdominal and pelvis scan revealed nonspecific mild intrahepatic biliary dilatation. No suspicious lesions present. Negative for lymphadenopathy. Given the lung mass, pulmonary consultation was requested. The patient was seen and examined at bedside. The patient reported no pulmonary symptoms. The patient reports 5 pounds weight loss recently. The patient had bloating issues recently and underwent upper endoscopy. The patient denies productive cough, shortness of breath, lower chest pain. The patient reports mild amount of pain postprocedure. MEDICATIONS AT HOME: Takes several supplements and Tylenol as needed. ALLERGIES: AMOXICILLIN, CLAVULANIC ACID, METRONIDAZOLE, AZITHROMYCIN. FAMILY HISTORY: Mother at 89 with gastric cancer. Father at 91 from old age. SOCIAL HISTORY: The patient lives alone at home. She is independent of activities of daily living. No tobacco or drug abuse. REVIEW OF SYSTEMS: All 14 systems reviewed and as per HPI. PHYSICAL EXAMINATION: The patient in bed in no apparent distress. Vital Signs : Temperature 100, pulse 79 beats per minute, respiratory rate 18 per minute, O2 saturation 94% on 2 L, blood pressure 107/49. HEENT: Pupils equal and reactive to light. Mucous membranes moist. Lungs: Decreased breath sounds in the left apex, no wheezing or crackles. Cardiovascular: S1, S2 present, regular. No murmurs, gallops or rubs. Abdomen: Soft, nontender, nondistended. Bowel sounds present. Neurologic: Alert, awake, and oriented x3. No focal deficits. LABORATORY DATA/DIAGNOSTIC STUDIES: WBC count 7.5, hemoglobin 11.7, hemoglobin 35, platelet count 165,000. Sodium 133, potassium 4.1, chloride 100, bicarbonate 29, BUN 8, creatinine 0.5. CT of the chest as described above in the HPI. IMPRESSION AND RECOMMENDATIONS: 81-year-old female, nonsmoker with large lung mass on the left side and possible pathological fracture of left femur. The patient with large lung mass amenable to ultrasound-guided FNA by Radiology. I was unable to get the patient scheduled for bronchoscopy until next week. I think the patient should proceed with ultrasound-guided biopsy of the left lung mass through Radiology in the interim. Will schedule the patient for bronchoscopy and EBUS next week to further evaluate the endobronchial lesion and also for staging with lymph node sampling. I have discussed this in detail with the patient and she is agreeable to the plan. Pain management for pathological fracture Discussed with Dr. Paiz, he will be arranging procedure with radiology [id number]/[facility] #: [id number] NILSA
[2017-04-20] MEDS: Heparin VIAL(*) 5000 UNITS/ML VIAL (FIVE THOUSAND) SUBCUT SCH ×3 (00:51→17:24)
[2017-04-20] MEDS: Senna TAB PO PRN (01:07)
[2017-04-20] MEDS: oxyCODONE/Acetamin 5/325 MG* TAB PO PRN ×3 (05:27→20:41)
--- NOTE | 2017-04-20 08:28 | PN ---
Progress Note - Progress Note Date of Service: 04/20/17 SOAP: Subjective: []Patient seen at bedside. She denies chest pain, SOB, nausea, leg numbness, chills. States she is NPO for a test later this afternoon leaving her feeling a bit "shakey" but otherwise she feels well. Objective: [] Vital Signs Temp 99.1 F 04/20/17 04:01 Pulse 95 04/20/17 04:01 Resp 18 04/20/17 07:44 BP 142/59 04/20/17 04:01 Pulse Ox 94 04/20/17 04:01 Intake & Output 04/19/17 04/20/17 04/20/17 18:59 06:59 18:59 Intake Total 2808 1380 Output Total 1800 2350 Balance 1008 -970 Intake: IV Fluids 1838 905 NS 1838 905 IVPB 55 ABX - CEFAZOLIN 55 Oral 970 420 Output: Urine 1350 Silva 1800 1000 Other: Estimated Void Large # Voids 1 Laboratory Last Values WBC 7.5 10^3/ul (3.5-10.8) 04/19/17 10:22 RBC 3.54 10^6/ul (4.0-5.4) L 04/19/17 10:22 Hgb 11.7 g/dl (12.0-16.0) L 04/19/17 10:22 Hct 35 % (35-47) 04/19/17 10:22 MCV 99 fL (80-97) H 04/19/17 10:22 MCH 33 pg (27-31) H 04/19/17 10:22 MCHC 34 g/dl (31-36) 04/19/17 10:22 RDW 12 % (10.5-15) 04/19/17 10:22 Plt Count 165 10^3/ul (150-450) 04/19/17 10:22 MPV 6 um3 (7.4-10.4) L 04/19/17 10:22 Neut % (Auto) 76.2 % (38-83) 04/19/17 10:22 Lymph % (Auto) 14.6 % (25-47) L 04/19/17 10:22 [place] % (Auto) 8.1 % (1-9) 04/19/17 10:22 Eos % (Auto) 0.6 % (0-6) 04/19/17 10:22 Baso % (Auto) 0.5 % (0-2) 04/19/17 10:22 Absolute Neuts (auto) 5.7 10^3/ul (1.5-7.7) 04/19/17 10:22 Absolute Lymphs (auto) 1.1 10^3/ul (1.0-4.8) 04/19/17 10:22 Absolute Monos (auto) 0.6 10^3/ul (0-0.8) 04/19/17 10:22 Absolute Eos (auto) 0 10^3/ul (0-0.6) 04/19/17 10:22 Absolute Basos (auto) 0 10^3/ul (0-0.2) 04/19/17 10:22 Absolute Nucleated RBC 0 10^3/ul 04/19/17 10:22 Nucleated RBC % 0 04/19/17 10:22 INR (Anticoag Therapy) 0.98 (0.89-1.11) 04/18/17 04:30 APTT 26.1 seconds (26.0-36.3) 04/18/17 04:30 Sodium 133 mmol/L (133-145) 04/19/17 10:22 Potassium 4.1 mmol/L (3.5-5.0) 04/19/17 10:22 Chloride 100 mmol/L (101-111) L 04/19/17 10:22 Carbon Dioxide 29 mmol/L (22-32) 04/19/17 10:22 Anion Gap 4 mmol/L (2-11) 04/19/17 10:22 BUN 8 mg/dL (6-24) 04/19/17 10:22 Creatinine 0.57 mg/dL (0.51-0.95) 04/19/17 10:22 Est GFR ( Amer) 131.6 (>60) 04/19/17 10:22 Est GFR (Non-Af Amer) 102.3 (>60) 04/19/17 10:22 BUN/Creatinine Ratio 14.0 (8-20) 04/19/17 10:22 Glucose 130 mg/dL (70-100) H 04/19/17 10:22 Calcium 8.0 mg/dL (8.6-10.3) L 04/19/17 10:22 Total Bilirubin 0.50 mg/dL (0.2-1.0) 04/18/17 04:30 AST 21 U/L (13-39) 04/18/17 04:30 ALT 17 U/L (7-52) 04/18/17 04:30 Alkaline Phosphatase 67 U/L (34-104) 04/18/17 04:30 Total Protein 6.7 g/dL (6.4-8.9) 04/18/17 04:30 Albumin 3.7 g/dL (3.2-5.2) 04/18/17 04:30 Globulin 3.0 g/dL (2-4) 04/18/17 04:30 Albumin/Globulin Ratio 1.2 (1-3) 04/18/17 04:30 Urine Color Yellow 04/18/17 04:27 Urine Appearance Clear 04/18/17 04:27 Urine pH 7.0 (5-9) 04/18/17 04:27 Ur Specific [place] 1.011 (1.010-1.030) 04/18/17 04:27 Urine Protein Negative (Negative) 04/18/17 04:27 Urine Ketones Trace (Negative) H 04/18/17 04:27 Urine Blood 1+ (Negative) H 04/18/17 04:27 Urine Nitrate Negative (Negative) 04/18/17 04:27 Urine Bilirubin Negative (Negative) 04/18/17 04:27 Urine Urobilinogen Negative (Negative) 04/18/17 04:27 Ur Leukocyte Esterase Trace (Negative) H 04/18/17 04:27 Urine WBC (Auto) Trace(0-5/hpf) (Absent) 04/18/17 04:27 Urine RBC (Auto) 1+(3-5/hpf) (Absent) H 04/18/17 04:27 Urine Bacteria Absent (Absent) 04/18/17 04:27 Urine Glucose Negative (Negative) 04/18/17 04:27 Blood Type A Positive 04/18/17 04:30 Antibody Screen Negative 04/18/17 04:30 General: Well appearing, NAD. Calm and cooperative. LLE: immobilizer in place. No erythema proximally or distally. Dressing changed. Incision CDI without erythema BL LE: calves supple and nontender without erythema, edema or palpable cords. Negative marty's sign. Sensation intact distally to light touch. DF/PF intact. DP/PT pulses 2+ Assessment: []POD 2 s/p left femoral rodding 04/18/17 Dr Mitchell Plan: []50% WB PT/OT Continued pain control DVT/PE prophylaxis: Heparin
[2017-04-20] MEDS ORDERED: fentaNYL* 50 MCG/ML 2 ML VIAL (100 MCG VIAL) ONE (15:27)
--- NOTE | 2017-04-20 15:36 | PN ---
Objective Active Medications: Acetaminophen (Tylenol Tab*) 650 mg PO Q4H PRN PRN Reason: FEVER/PAIN Al Hydrox/Mg Hydrox/Simethicone (Maalox Plus*) 30 ml PO Q6H PRN PRN Reason: INDIGESTION Docusate Sodium (Colace Cap*) 100 mg PO BID PRN PRN Reason: CONSTIPATION Heparin Sodium (Porcine) (Heparin Vial(*)) 5,000 units SUBCUT Q8H [facility] Last Admin: 04/20/17 09:34 Dose: 5,000 units Sodium Chloride (Ns 0.9% 1000 Ml*) 1,000 mls @ 100 mls/hr IV PER RATE [facility] Last Admin: 04/19/17 22:55 Dose: 100 mls/hr Morphine Sulfate (Morphine Inj (Syringe)*) 2 mg IV Q4H PRN PRN Reason: PAIN - MILD Last Admin: 04/18/17 07:14 Dose: 2 mg Ondansetron HCl (Zofran Inj*) 4 mg IV Q4H PRN PRN Reason: NAUSEA/VOMITING Oxycodone/Acetaminophen (Percocet 5/325 Tab*) 1 tab PO Q4H PRN PRN Reason: PAIN Last Admin: 04/20/17 13:20 Dose: 1 tab Senna (Senokot Tab*) 1 tab PO BID PRN PRN Reason: CONSTIPATION Last Admin: 04/20/17 01:07 Dose: 1 tab Tramadol HCl (Ultram*) 50 mg PO Q6H PRN PRN Reason: PAIN Last Admin: 04/19/17 00:20 Dose: 50 mg Vital Signs 04/19/17 04/19/17 04/19/17 16:00 16:31 16:38 Temperature Pulse Rate Respiratory 16 16 Rate Blood Pressure (mmHg) O2 Sat by Pulse 95 Oximetry 04/19/17 04/19/17 04/19/17 18:56 19:18 19:30 Temperature 98.6 F Pulse Rate 91 Respiratory 16 16 16 Rate Blood Pressure 108/41 (mmHg) O2 Sat by Pulse 94 Oximetry 04/19/17 04/19/17 04/20/17 21:46 23:20 00:33 Temperature 99.5 F Pulse Rate 89 Respiratory 18 16 16 Rate Blood Pressure 116/53 (mmHg) O2 Sat by Pulse 94 Oximetry 04/20/17 04/20/17 04/20/17 01:54 04:00 04:01 Temperature 99.1 F Pulse Rate 91 95 Respiratory 16 Rate Blood Pressure 142/59 (mmHg) O2 Sat by Pulse 94 95 94 Oximetry 04/20/17 04/20/17 04/20/17 05:27 07:30 07:44 Temperature 98.9 F Pulse Rate 81 Respiratory 18 16 18 Rate Blood Pressure 128/58 (mmHg) O2 Sat by Pulse 95 Oximetry 04/20/17 04/20/17 04/20/17 08:00 11:08 13:20 Temperature 97.4 F Pulse Rate 90 Respiratory 18 16 18 Rate Blood Pressure 104/33 (mmHg) O2 Sat by Pulse 95 97 Oximetry Oxygen Devices in Use Now: Nasal Cannula Result Diagrams: 04/19/17 10:22 04/19/17 10:22 Additional Lab and Data: Laboratory Results - last 24 hr 04/19/17 04/19/17 10:22 10:22 WBC 7.5 RBC 3.54 L Hgb 11.7 L Hct 35 MCV 99 H MCH 33 H MCHC 34 RDW 12 Plt Count 165 MPV 6 L Neut % (Auto) 76.2 Lymph % (Auto) 14.6 L [place] % (Auto) 8.1 Eos % (Auto) 0.6 Baso % (Auto) 0.5 Absolute Neuts (auto) 5.7 Absolute Lymphs (auto) 1.1 Absolute Monos (auto) 0.6 Absolute Eos (auto) 0 Absolute Basos (auto) 0 Absolute Nucleated RBC 0 Nucleated RBC % 0 Sodium 133 Potassium 4.1 Chloride 100 L Carbon Dioxide 29 Anion Gap 4 BUN 8 Creatinine 0.57 Est GFR ( Amer) 131.6 Est GFR (Non-Af Amer) 102.3 BUN/Creatinine Ratio 14.0 Glucose 130 H Calcium 8.0 L Microbiology and Other Data: Microbiology 04/18/17 04:27 Urine Urine Culture - Final Assess/Plan/Problems-Billing Assessment: 81 yo female p/w left mid shaft femur fracture with rolling in bed and large left lung mass. Suspicion for malignancy w/ pathological fracture. - Patient Problems (1) Left femoral shaft fracture Current Visit: Yes Status: Acute Code(s): S72.302A - UNSP FRACTURE OF SHAFT OF LEFT FEMUR, INIT FOR CLOS FX SNOMED Code(s): 95103005 Comment: suspect pathologic fracture. s/p repair. PT/OT, likely will need PMRU vs SNF. percosets for pain control per ortho DVT ppx per ortho. (2) Lung mass Current Visit: Yes Status: Acute Code(s): R91.8 - OTHER NONSPECIFIC ABNORMAL FINDING OF LUNG FIELD SNOMED Code(s): 468012600 Comment: Appreciate heme/onc and pulmonary recs no pathology apparently obtained during femur repair lung biopsy requested. Per Dr. Randhawa may not be able to be obtained until next week (as outpatient). Dr Randhawa has orderd US guided biopsy. With planned EBUS for further staging next week. Will make npo midnight. bone scan as outpatient consideration for palliative bone radiation but don't have tissue confirmation Status and Disposition: medicine inpatient.
--- NOTE | 2017-04-20 17:25 | PN ---
Progress Note - Progress Note Date of Service: 04/20/17 - Pulm consult f/u note Note: Pt seen and examined at bedside. Pt reports no new complaints. Had questions about biopsy Active Medications Generic Name Dose Route Start Last Admin Trade Name Freq PRN Reason Stop Dose Admin Acetaminophen 650 mg 04/18/17 04:36 Tylenol Tab* PO Q4H PRN FEVER/PAIN Al Hydrox/Mg Hydrox/Simethicone 30 ml 04/18/17 04:36 Maalox Plus* PO Q6H PRN INDIGESTION Docusate Sodium 100 mg 04/18/17 04:36 Colace Cap* PO BID PRN CONSTIPATION Heparin Sodium (Porcine) 5,000 units 04/19/17 09:00 04/20/17 09:34 Heparin Vial(*) SUBCUT 5,000 units Q8H ZEFERINO Administration Sodium Chloride 1,000 mls @ 100 mls/hr 04/18/17 04:45 04/19/17 22:55 Ns 0.9% 1000 Ml* IV 100 mls/hr PER RATE ZEFERINO Administration Morphine Sulfate 2 mg 04/18/17 04:40 04/18/17 07:14 Morphine Inj (Syringe)* IV 2 mg Q4H PRN Administration PAIN - MILD Ondansetron HCl 4 mg 04/18/17 04:36 Zofran Inj* IV Q4H PRN NAUSEA/VOMITING Oxycodone/Acetaminophen 1 tab 04/19/17 04:14 04/20/17 13:20 Percocet 5/325 Tab* PO 1 tab Q4H PRN Administration PAIN Senna 1 tab 04/18/17 04:36 04/20/17 01:07 Senokot Tab* PO 1 tab BID PRN Administration CONSTIPATION Tramadol HCl 50 mg 04/18/17 04:39 04/19/17 00:20 Ultram* PO 50 mg Q6H PRN Administration PAIN Vital Signs Temp Pulse Resp BP Pulse Ox 98.9 F 84 16 120/66 94 04/20/17 16:45 04/20/17 16:45 04/20/17 16:45 04/20/17 16:45 04/20/17 16:45 O/E: Pt in NAD HEENT: PERRLA, No JVD Lungs: Diminished air entry at lung apex on left side, no wheeze CVS: S1, S2+ Abd: Soft, BS+ Ext: No edema, Lt extremity in dressing Neuro: No focal defecits Laboratory Results - last 24 hr 04/20/17 09:14 POC Glucose (mg/dL) 120 H U/S guided Lt lung biopsy: [address] Rodriguez, results pending I/R: 81 y o f with possible pathological fracture of lt femur from metastatic disease from lung primary Pt had U/S guided biopsy of Left lung lesion today by Dr Rodriguez Pt tolerated procedure well, awaiting official dx Will have PET scan as out pt Will schedule for EBUS/bronchoscopy next Monday If PET scan is done and confirms metastatic disease staging might not be indicated however bronchoscopy still would be helpful for plan regarding adjuvant radiation inaddition to chemo Will discuss at Tumor board Pt will need port placement for chemotherapy, will place order and contact Dr Rdoriguez D/w Dr Paiz and Dr Rodriguez
--- NOTE | 2017-04-20 17:29 | RAD ---
INDICATION: Thoracic mass abutting the chest wall that is visible with sonographic imaging. COMPARISON: Recent chest CT PROCEDURE NOTE AND IMAGING FINDINGS: The benefits of the and risks of procedure explained to the patient. The patient consented for the exam. The patient received 25 mcg of IV fentanyl. The patient was brought to the ultrasound suite and multiple images of the left anterior upper hemithorax were obtained. The mass corresponding to prior imaging was identified overlying the left anterior upper hemithorax. The site was marked. A formal time out was performed before beginning the procedure. The patient was prepped and draped in the usual sterile fashion. The patient?s posterior chest wall was anesthetized with 1% lidocaine. Under sonographic control a fine needle aspiration was acquired utilizing a 20 gauge needle. The attending cytopathologist indicated the sample was adequate for cytologic diagnosis. According to the same technique, an additional fine-needle aspiration was acquired and provided to the attending cytopathologist. Postbiopsy imaging does not show any excessive bleeding or signs of a pneumothorax. The patient tolerated the procedure without incident. IMPRESSION: Uncomplicated ultrasound-guided thoracic biopsy as described in the body of the report.
--- NOTE | 2017-04-20 19:09 | PN ---
Subjective Date of Service: 04/20/17 Interval History: Got US guided biopsy this afternoon. Pt feeling better, was wanting to eat in AM (while npo for biopsy), hungry. Attests to dry cough x 1 month. Objective Active Medications: Acetaminophen (Tylenol Tab*) 650 mg PO Q4H PRN PRN Reason: FEVER/PAIN Al Hydrox/Mg Hydrox/Simethicone (Maalox Plus*) 30 ml PO Q6H PRN PRN Reason: INDIGESTION Docusate Sodium (Colace Cap*) 100 mg PO BID PRN PRN Reason: CONSTIPATION Heparin Sodium (Porcine) (Heparin Vial(*)) 5,000 units SUBCUT Q8H [facility] Last Admin: 04/20/17 17:24 Dose: 5,000 units Sodium Chloride (Ns 0.9% 1000 Ml*) 1,000 mls @ 100 mls/hr IV PER RATE [facility] Last Admin: 04/19/17 22:55 Dose: 100 mls/hr Morphine Sulfate (Morphine Inj (Syringe)*) 2 mg IV Q4H PRN PRN Reason: PAIN - MILD Last Admin: 04/18/17 07:14 Dose: 2 mg Ondansetron HCl (Zofran Inj*) 4 mg IV Q4H PRN PRN Reason: NAUSEA/VOMITING Oxycodone/Acetaminophen (Percocet 5/325 Tab*) 1 tab PO Q4H PRN PRN Reason: PAIN Last Admin: 04/20/17 13:20 Dose: 1 tab Senna (Senokot Tab*) 1 tab PO BID PRN PRN Reason: CONSTIPATION Last Admin: 04/20/17 01:07 Dose: 1 tab Tramadol HCl (Ultram*) 50 mg PO Q6H PRN PRN Reason: PAIN Last Admin: 04/19/17 00:20 Dose: 50 mg Vital Signs 04/19/17 04/19/17 04/19/17 19:18 19:30 21:46 Temperature 98.6 F Pulse Rate 91 Respiratory 16 16 18 Rate Blood Pressure 108/41 (mmHg) O2 Sat by Pulse 94 Oximetry 04/19/17 04/20/17 04/20/17 23:20 00:33 01:54 Temperature 99.5 F Pulse Rate 89 Respiratory 16 16 Rate Blood Pressure 116/53 (mmHg) O2 Sat by Pulse 94 94 Oximetry 04/20/17 04/20/17 04/20/17 04:00 04:01 05:27 Temperature 99.1 F Pulse Rate 91 95 Respiratory 16 18 Rate Blood Pressure 142/59 (mmHg) O2 Sat by Pulse 95 94 Oximetry 04/20/17 04/20/17 04/20/17 07:30 07:44 08:00 Temperature 98.9 F Pulse Rate 81 Respiratory 16 18 18 Rate Blood Pressure 128/58 (mmHg) O2 Sat by Pulse 95 95 Oximetry 04/20/17 04/20/17 04/20/17 11:08 13:20 15:00 Temperature 97.4 F Pulse Rate 90 Respiratory 16 18 18 Rate Blood Pressure 104/33 (mmHg) O2 Sat by Pulse 97 Oximetry 04/20/17 16:45 Temperature 98.9 F Pulse Rate 84 Respiratory 16 Rate Blood Pressure 120/66 (mmHg) O2 Sat by Pulse 94 Oximetry Oxygen Devices in Use Now: Nasal Cannula Appearance: NAD Eyes: No Scleral Icterus, PERRLA Ears/Nose/Mouth/Throat: NL Teeth, Lips, Gums, Mucous Membranes Moist Neck: NL Appearance and Movements; NL JVP Respiratory: Symmetrical Chest Expansion and Respiratory Effort, Clear to Auscultation Cardiovascular: NL Sounds; No Murmurs; No JVD, RRR Abdominal: NL Sounds; No Tenderness; No Distention, No Hepatosplenomegaly Extremities: No Edema, - - left leg in brace Skin: No Rash or Ulcers, No Nodules or Sclerosis Neurological: Alert and Oriented x 3, NL Sensation, NL Muscle Strength and Tone Nutrition: Taking PO's Result Diagrams: 04/19/17 10:22 04/19/17 10:22 Additional Lab and Data: Laboratory Results - last 24 hr 04/20/17 09:14 POC Glucose (mg/dL) 120 H Microbiology and Other Data: Microbiology 04/18/17 04:27 Urine Urine Culture - Final Assess/Plan/Problems-Billing Assessment: 81 yo female p/w left mid shaft femur fracture with rolling in bed and large left lung mass. Suspicion for malignancy w/ pathological fracture. s/p US guided biopsy 04/20. - Patient Problems (1) Left femoral shaft fracture Current Visit: Yes Status: Acute Code(s): S72.302A - UNSP FRACTURE OF SHAFT OF LEFT FEMUR, INIT FOR CLOS FX SNOMED Code(s): 17416574 Comment: suspect pathologic fracture. s/p repair. PT/OT, likely will need PMRU vs SNF. percosets for pain control per ortho DVT ppx per ortho (heparin). (2) Lung mass Current Visit: Yes Status: Acute Code(s): R91.8 - OTHER NONSPECIFIC ABNORMAL FINDING OF LUNG FIELD SNOMED Code(s): 422624496 Comment: Appreciate heme/onc and pulmonary recs s/p US guided lung biopsy with Dr. Rodriguez. Planned EBUS for further staging next week (mon). PET/bone scan as outpatient Status and Disposition: medicine inpatient. Dispo to rehab (SNF vs PMRU) as soon as accepted. Attending: Eleazar Paiz
[2017-04-21] MEDS: Heparin VIAL(*) 5000 UNITS/ML VIAL (FIVE THOUSAND) SUBCUT SCH ×2 (01:03→08:38)
--- NOTE | 2017-04-21 08:16 | PN ---
Progress Note - Progress Note Date of Service: 04/21/17 SOAP: Subjective: 81 y/o female s/p nailing of pathological fracture on 04/[address] Mitchell. Patient reports pain has improved, working well with PT and enjoys moving, concerned about other medical issues currently. Objective: General- NAD resting in bed comfortably, NAD MSK- Dressing intact, knee immoblizer over dressing, + DF/ PF b/l without difficulty, sensation intactp, PT 2+ b/l, neg homans b/l. Vital Signs Temp 98.1 F 04/21/17 04:10 Pulse 85 04/21/17 04:10 Resp 16 04/21/17 04:10 BP 119/47 04/21/17 04:10 Pulse Ox 95 04/21/17 05:30 Intake & Output 04/20/17 04/21/17 04/21/17 18:59 06:59 18:59 Intake Total 360 275 Output Total 1250 850 350 Balance -890 -575 -350 Intake: IVPB 0 ABX - CEFAZOLIN 0 Oral 360 275 Output: Urine 1250 850 350 Other: Estimated Void Medium # Bowel Movements 1 1 Estimated Stool Amount Large Large Assessment: Stable 81 y/o female s/p nailing of pathological fracture on 04/[address] Mitchell. Plan: - Await pathology reports - Continue PT/ OT - Continue current pain regimen - Follow up with Dr. Mitchell within 2-3 weeks as outpatient at D/C, lin to be removed by VNS within 12-14 days post-op - Continue knee immobilizer Active Medications Generic Name Dose Route Start Last Admin Trade Name Kleberq PRN Reason Stop Dose Admin Acetaminophen 650 mg 04/18/17 04:36 Tylenol Tab* PO Q4H PRN FEVER/PAIN Al Hydrox/Mg Hydrox/Simethicone 30 ml 04/18/17 04:36 Maalox Plus* PO Q6H PRN INDIGESTION Docusate Sodium 100 mg 04/18/17 04:36 Colace Cap* PO BID PRN CONSTIPATION Heparin Sodium (Porcine) 5,000 units 04/19/17 09:00 04/21/17 01:03 Heparin Vial(*) SUBCUT 5,000 units Q8H ZEFERINO Administration Sodium Chloride 1,000 mls @ 100 mls/hr 04/18/17 04:45 04/19/17 22:55 Ns 0.9% 1000 Ml* IV 100 mls/hr PER RATE ZEFERINO Administration Morphine Sulfate 2 mg 04/18/17 04:40 04/18/17 07:14 Morphine Inj (Syringe)* IV 2 mg Q4H PRN Administration PAIN - MILD Ondansetron HCl 4 mg 04/18/17 04:36 Zofran Inj* IV Q4H PRN NAUSEA/VOMITING Oxycodone/Acetaminophen 1 tab 04/19/17 04:14 04/20/17 20:41 Percocet 5/325 Tab* PO 1 tab Q4H PRN Administration PAIN Senna 1 tab 04/18/17 04:36 04/20/17 01:07 Senokot Tab* PO 1 tab BID PRN Administration CONSTIPATION Tramadol HCl 50 mg 04/18/17 04:39 04/19/17 00:20 Ultram* PO 50 mg Q6H PRN Administration PAIN
[2017-04-21 12:15] VITALS: BP 128/34
--- NOTE | 2017-04-21 13:50 | RAD ---
INDICATION: Evaluation prior to the Mediport placement COMPARISON: CT chest abdomen pelvis dated April 19, 2017 TECHNIQUE: Real time ultrasound images of the bilateral internal jugular and subclavian veins were acquired with sanchez scale and Doppler color flow imaging. FINDINGS: Sonographic images indicate adequate patency of the bilateral internal jugular and subclavian veins. Normal cardiac phasicity is recorded. IMPRESSION: Patent veins.
--- NOTE | 2017-04-21 14:36 | PN ---
Progress Note - Progress Note Date of Service: 04/21/17 - Pulm f/u note Note: Pt seen and examined at bedside. Pt reports that she is worried knowing about diagnosis of lung biopsy. Pain is better and no other complaints otherwise Active Medications Generic Name Dose Route Start Last Admin Trade Name Armond PRN Reason Stop Dose Admin Acetaminophen 650 mg 04/18/17 04:36 Tylenol Tab* PO Q4H PRN FEVER/PAIN Al Hydrox/Mg Hydrox/Simethicone 30 ml 04/18/17 04:36 Maalox Plus* PO Q6H PRN INDIGESTION Docusate Sodium 100 mg 04/18/17 04:36 Colace Cap* PO BID PRN CONSTIPATION Heparin Sodium (Porcine) 5,000 units 04/19/17 09:00 04/21/17 08:38 Heparin Vial(*) SUBCUT 5,000 units Q8H ZEFERINO Administration Sodium Chloride 1,000 mls @ 100 mls/hr 04/18/17 04:45 04/19/17 22:55 Ns 0.9% 1000 Ml* IV 100 mls/hr PER RATE ZEFERINO Administration Morphine Sulfate 2 mg 04/18/17 04:40 04/18/17 07:14 Morphine Inj (Syringe)* IV 2 mg Q4H PRN Administration PAIN - MILD Ondansetron HCl 4 mg 04/18/17 04:36 Zofran Inj* IV Q4H PRN NAUSEA/VOMITING Oxycodone/Acetaminophen 1 tab 04/19/17 04:14 04/20/17 20:41 Percocet 5/325 Tab* PO 1 tab Q4H PRN Administration PAIN Senna 1 tab 04/18/17 04:36 04/20/17 01:07 Senokot Tab* PO 1 tab BID PRN Administration CONSTIPATION Tramadol HCl 50 mg 04/18/17 04:39 04/19/17 00:20 Ultram* PO 50 mg Q6H PRN Administration PAIN Vital Signs Temp Pulse Resp BP Pulse Ox 99.3 F 91 16 128/34 98 04/21/17 12:06 04/21/17 12:06 04/21/17 12:06 04/21/17 12:06 04/21/17 13:43 O/E; Pt in NAD HEENT: PERRLA, No JVD Lungs: clear to auscultation b/l CVS; S1, S2+ Abd; soft, BS+ Ext; Left hip in dressing 04/19/17 04/19/17 04/20/17 10:22 10:22 09:14 WBC 7.5 RBC 3.54 L Hgb 11.7 L Hct 35 MCV 99 H MCH 33 H MCHC 34 RDW 12 Plt Count 165 MPV 6 L Neut % (Auto) 76.2 Lymph % (Auto) 14.6 L [place] % (Auto) 8.1 Eos % (Auto) 0.6 Baso % (Auto) 0.5 Absolute Neuts (auto) 5.7 Absolute Lymphs (auto) 1.1 Absolute Monos (auto) 0.6 Absolute Eos (auto) 0 Absolute Basos (auto) 0 Absolute Nucleated RBC 0 Nucleated RBC % 0 Sodium 133 Potassium 4.1 Chloride 100 L Carbon Dioxide 29 Anion Gap 4 BUN 8 Creatinine 0.57 Est GFR ( Amer) 131.6 Est GFR (Non-Af Amer) 102.3 BUN/Creatinine Ratio 14.0 Glucose 130 H POC Glucose (mg/dL) 120 H Calcium 8.0 L Left Lung biopsy 04/20/17; pending I/R: 81 y o f with possible pathological fracture of left femur, Left lung mass s/p U/S guided biopsy Official pathology of lung biopsy is pending Pt will need staging once malignancy is confirmed She will be d/fermín to rehab in next 1-2 days Unfortunately femur lesion was not biopsied, underwent pinning Pt is scheduled for bronchoscopy for evaluation of endobronchial lesion and staging on Monday04/26/17 Will cancel procedure if metastatic disease is ascertained by any other means Will contact IR regarding feasibility of biopsy of femur lesion D/w Dr Tomas
--- NOTE | 2017-04-21 15:35 | DS ---
DATE OF ADMISSION: 04/18/2017. DATE OF DISCHARGE: 04/21/2017. PRIMARY CARE PHYSICIAN: Dr. Savannah Egan. ADMITTING PROVIDER: CHERELLE Sanchez, Orthopedics. CHIEF COMPLAINT: Left leg pain. PRINCIPAL DIAGNOSES: Left femur fracture, suspected pathological fracture; large left lung mass with very high suspicion for lung or other malignancy. HISTORY OF PRESENT ILLNESS AND HOSPITAL COURSE: Tuyet Atkinson is a 81-year- old female with a past medical history of arthritis and osteopenia who rolled over in bed the night prior to admission, heard a snap, and had a significant amount of pain. Her cat had been lying on her legs at the time. She got out of bed, tried to ambulate, took some Tylenol, but was unable to bear weight on the leg. She called for EMS. She felt that her left hip felt "funny" in the position prior to hearing the snap. In the emergency room, she had a femur x- ray and pelvic x-ray that showed a lucent line seen overlying the mid level of the distal left femur which could represent a nondisplaced fracture. She had a lower extremity CT scan which demonstrated a nondisplaced fracture of the mid shaft with adjacent hematoma, some suggestion of bone marrow replacement with some irregularity and lucency within the cortex at the level of the fracture and an underlying pathological fracture was strongly considered with the differential diagnosis of metastases or myeloma. Of note, her chest x-ray also was very significantly found to have a large, 9.8 x 8.6 cm, mass in the left lung which was not seen in comparison study of 02/02/2015. Strong suspicious was for a pathological fracture with malignancy in the lung. The patient was taken to the OR later on April [address] Mitchell and she received an intramedullary nail. She continued with physical therapy, making good progress with that and she is being discharged to [facility]. For further evaluation of the lung mass, she received a CT of the chest, abdomen and pelvis on 04/19/2017 which demonstrated no suspicious focal visceral lesions, no lymphadenopathy, no suspicious osseous lesions. Again was demonstrated a left suprahilar mass, 5.8 cm x 7.3 cm, at the anterior segment of the left upper lobe with suggestion of enhancement of solid elements and probable regions of necrosis. Suggestion of tumor extending into the anterior segmental bronchus of the left upper lobe. The tumor was inseparable from the mediastinal margin. Of significant note, there was no pathological samples obtained in the OR suite of the left femur. Dr. Randhawa of Pulmonology was consulted for possible lung biopsy and an ultrasound- guided biopsy with Dr. Rodriguez was pursued on April 20 with pathology still pending. The patient is being discharged to the [facility] unit for further rehabilitation. The patient will need an additional EBUS next Monday , the [address] Radnhawa for further sampling of the mass and lymph nodes in the region for further staging. Attempts were made to place Mediport, but given both scheduling and non-confirmed pathological diagnosis yet , this will be deferred until next week. Also, strong consideration for bone scan or PET scan as an outpatient. She will need to follow-up with Dr. Dafne Tomas who saw her in consultation from Hematology/Oncology. DISCHARGE MEDICATIONS: 1. Tramadol 50 mg p.o. q.6 hours. 2. Senna tab one tab p.o. b.i.d. 3. Oxycodone one tab p.o. q.4 hours. 4. Zofran 4 mg prn for nausea. 5. Docusate 100 mg p.o. b.i.d. 6. Maalox 30 ml p.o. q.6 hours. 7. Acetaminophen 650 mg p.o. q.4 hours. DISCHARGE DIET: No restrictions. DISCHARGE ACTIVITY LEVEL: 50 percent weightbearing on the left leg. She will continue physical therapy in [place]. FOLLOW-UP: The patient to follow-up with Dr. Randhawa April 26 for EBUS, likely placement of Mediport either April 24 or April 25 after pathology returns (as almost certainly the case, malignancy is confirmed). The patient is to also follow-up with Dr. Dafne Tomas of Hematology/Oncology next week and primary care physician after discharge from [facility]. Time spent on this discharge was 35 minutes. [id number]/[facility] #: [id number] NILSA
== END 2017-04-21 14:59 | DRG 481 ==
LOC: ED 00:23 → SSU 04:36
PROVIDERS: ADMIT Pediatrics; ATTEND Internal Medicine
PROC: 0BDL4ZX Extraction of Left Lung, Percutaneous Endoscopic Approach, Diagnostic (ICD-10-PCS; 2017-04-18)
PROC: 0QHC06Z Insertion of Intramedullary Internal Fixation Device into Left Lower Femur, Open Approach (ICD-10-PCS; principal; 2017-04-18 17:00)
DX: M84.452A Pathological fracture, left femur, initial encounter for fracture (principal); C34.12 Malignant neoplasm of upper lobe, left bronchus or lung; M41.9 Scoliosis, unspecified; E78.00 Pure hypercholesterolemia, unspecified; Z88.1 Allergy status to other antibiotic agents; Z88.8 Allergy status to other drugs, medicaments and biological substances; Z87.442 Personal history of urinary calculi; Z98.42 Cataract extraction status, left eye; Z98.41 Cataract extraction status, right eye; R40.2412 Glasgow coma scale score 13-15, at arrival to emergency department; Z80.0 Family history of malignant neoplasm of digestive organs; M13.0 Polyarthritis, unspecified; M81.0 Age-related osteoporosis without current pathological fracture; Z85.828 Personal history of other malignant neoplasm of skin; M85.852 Other specified disorders of bone density and structure, left thigh
CPT/HCPCS: 36415; 71010; 71260; 72170; 74177; 76942; 80048; 80053; 81003; 81015; 85025; 85610; 85730; 86850; 86900; 86901; 87086; 88172; 88173; 88177; 88305; 88341; 88342; 88360; 93005; 93970; 94760; A9270-GY; J0690; J1644; J2250; J2270; J2405; J2704; J3010; Q9967

== ENCOUNTER 2017-04-21 13:29 | Inpatient (IN) | payer MEDICARE ==
[2017-04-21] MEDS ORDERED: Al Hydrox/Mg Hydrox/Simet LIQ* 30 ML UDC PO PRN (13:33)
[2017-04-21] MEDS ORDERED: Senna TAB PO PRN (13:33)
[2017-04-21] MEDS ORDERED: Bisacodyl SUPP* 10 MG SUPP PR PRN (13:33)
[2017-04-21] MEDS ORDERED: Magnesium Hydroxide LIQ* 30 ML UDC PO PRN (13:33)
[2017-04-21] MEDS ORDERED: Heparin VIAL(*) 5000 UNITS/ML VIAL (FIVE THOUSAND) SUBCUT SCH (14:00)
[2017-04-21] MEDS: Heparin VIAL(*) 5000 UNITS/ML VIAL (FIVE THOUSAND) SUBCUT SCH ×2 (16:13→23:59)
--- OUTSIDE RECORDS SUMMARY | 2017-04-21 16:51 | XMS REPORT ---
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 White Blood Count 8.8 10^3/uL 4.8-10.8 Red Blood Count 4.53 10^6/uL 4.0-5.4 Hemoglobin 14.7 g/dL 12.0-16.0 Hematocrit 46 % 35-47 Mean Corpuscular Volume 101 fL High 80-97 Mean Corpuscular Hemoglobin 32 pg High 27-31 Mean Corpuscular HGB Conc 32 g/dL 31-36 Red Cell Distribution Width 13 % 10.5-15 Platelet Count 206 10^3/uL 150-450 Mean Platelet Volume 8 um3 7.4-10.4 Abs Neutrophils 6.2 10^3/uL 1.5-7.7 Abs Lymphocytes 2.0 10^3/uL 1.0-4.8 Abs Monocytes 0.5 10^3/uL 0-0.8 Abs Eosinophils 0.1 10^3/uL 0-0.6 Abs Basophils 0 10^3/uL 0-0.2 Abs Nucleated RBC 0 10^3/uL Granulocyte % 70.4 % 38-83 Lymphocyte % 22.9 % Low 25-47 Monocyte % 5.6 % 1-9 Eosinophil % 0.6 % 0-6 Basophil % 0.5 % 0-2 Nucleated Red Blood Cells % 0 Laboratory test finding 02/02/2015 Inr 0.96 0.78-1.07 Partial Thrombo Time PTT 26.6 seconds 26.0-36.3 Lipid Profile (Trig/Chol/HDL) 12/30/2013 Triglycerides 84 mg/dL 41, 42 Cholesterol 245 mg/dL 41, 43 HDL Cholesterol 90.4 mg/dL 41, 44 LDL Cholesterol 138 mg/dL 41, 45 Comp Metabolic Panel 12/30/2013 Sodium 139 mmol/L 133-145 41 Potassium 4.1 mmol/L 3.7-5.6 41 Chloride 102 mmol/L 101-111 41 Co2 Carbon Dioxide 32 mmol/L 22-32 41 Anion Gap 5 mmol/L 2-11 41 Glucose 83 mg/dL 70-100 41 Blood Urea Nitrogen 16 mg/dL 6-24 41 Creatinine 0.81 mg/dL 0.51-0.95 41 BUN/Creatinine Ratio 19.8 8-20 41 Calcium 9.9 mg/dL 8.6-10.3 41 Total Protein 6.6 g/dL 6.4-8.9 41 Albumin 4.2 g/dL 3.2-5.2 41 Globulin 2.4 g/dL 2-4 41 Albumin/Globulin Ratio 1.8 1-3 41 Total Bilirubin 0.60 mg/dL 0.2-1.0 41 Alkaline Phosphatase 52 U/L 34-104 41 Alt 20 U/L 7-52 41 Ast 22 U/L 13-39 41 Egfr Non- 68.7 >60 41 Egfr 88.4 >60 41, 46 Laboratory test 12/30/2013 TSH (Thyroid 1.55 IU/mL 0.34-5.60 41, 47 finding Stimulating Horm) Free T4 0.80 ng/mL 0.61-1.12 41, 48 CBC No Diff 12/30/2013 White Blood Count 5.9 10^3/uL 4.8-10.8 41 Red Blood Count 4.40 10^6/uL 4.0-5.4 41 Hemoglobin 14.9 g/dL 12.0-16.0 41 Hematocrit 43 % 35-47 41 Mean Corpuscular Volume 98 fL High 80-97 41 Mean Corpuscular Hemoglobin 34 pg High 27-31 41 Mean Corpuscular HGB Conc 35 g/dL 31-36 41 Red Cell Distribution Width 13 % 10.5-15 41 Platelet Count 218 10^3/uL 150-450 41 Mean Platelet Volume 7 um3 Low 7.4-10.4 41 Laboratory test finding 12/30/2013 Vitamin B12 821 pg/mL 180-914 41, 49 Vitamin D, 25 Hydroxy 12/30/2013 25-Hydroxy Vitamin <4.0 ng/mL 41 D2 25-Hydroxy Vitamin D3 46 ng/mL 41 25-Hydroxy Vitamin D Total 46 ng/mL 41, 50 Urine DIP 12/30/2013 Specific [place] 1.000 Low 1.01-1.02 Urine pH 9 High 5-6 Leukocytes NEG Neg Urine Nitrites NEG Neg Total Protein, Urine NEG Neg Urine Glucose NORM Norm Urine Ketones NEG Neg Urobilinogen NORM Norm Urine Bilirubin NEG Neg Urine Blood NEG Neg Urine DIP 12/26/2012 Leukocytes neg Neg Urine Nitrites neg Neg Urine pH 7 High 5-6 Total Protein, Urine neg Neg Urine Glucose norm Norm Urine Ketones neg Neg Urobilinogen norm Norm Urine Bilirubin neg Neg Urine Blood trace Neg Specific [place] 1.015 1.01-1.02 CBC No Diff 12/26/2012 White Blood Count 5.2 10^3/uL 4.8-10.8 Red Blood Count 4.43 10^6/uL 4.0-5.4 Hemoglobin 14.6 g/dL 12.0-16.0 Hematocrit 44 % 35-47 Mean Corpuscular Volume 100 fL High 80-97 Mean Corpuscular Hemoglobin 33 pg High 27-31 Mean Corpuscular HGB Conc 33 g/dL 31-36 Red Cell Distribution Width 13 % 10.5-15 Platelet Count 214 10^3/uL 150-450 Mean Platelet Volume 8 um3 7.4-10.4 Laboratory test finding 12/26/2012 TSH (Thyroid Stimulating 1.71 miu/mL 0.34-5.60 51 Horm) Free T4 0.84 ng/mL 0.61-1.24 52 Comp Metabolic Panel 12/26/2012 Sodium 138 mmol/L 133-145 Potassium 4.2 mmol/L 3.5-5.0 Chloride 102 mmol/L 101-111 Co2 Carbon Dioxide 30.0 mmol/L 22-32 Anion Gap 6.0 mmol/L 2-11 Glucose 97 mg/dL 70-100 Blood Urea Nitrogen 14 mg/dL 6-24 Creatinine 0.80 mg/dL 0.50-1.40 BUN/Creatinine Ratio 17.5 8-20 Calcium 9.3 mg/dL 8.1-9.9 Total Protein 6.1 g/dL Low 6.2-8.1 Albumin 3.9 g/dL 3.2-5.2 Globulin 2.2 g/dL 2-4 Albumin/Globulin Ratio 1.8 1-3 Total Bilirubin 0.8 mg/dL 0.4-1.5 Alkaline Phosphatase 52 U/L 30-110 Alt 23 U/L 14-54 Ast 24 U/L 12-42 Egfr Non- 69.9 >60 Egfr 89.9 >60 53 Lipid Profile (Trig/Chol/HDL) 12/26/2012 Triglycerides 59 mg/dL 40-200 Cholesterol 240 mg/dL High Less than 200 HDL Cholesterol 93 mg/dL High 40-60 54 Cholesterol/HDL Ratio 2.6 Average 1-4.44 LDL Cholesterol 135.2 High Less Than 100 55 Hemoccult 01/02/2012 Stool-Occult Blood #1 NEG Neg Stool-Occult Blood #2 NEG Neg Stool-Occult Blood #3 NEG Neg CBC With Manual Diff 12/26/2011 White Blood Count 5.8 CUMM 4.8-10.8 Red Cell Count 4.32 CUMM 4.2-5.4 Hemoglobin 14.9 g/dL 12.0-16.0 Hematocrit 44 % 35-47 Mean Corpuscular Volume 101 um3 High 79-97 Mean Corpuscular Hemoglob 34 pg High 27-31 Mean Corpuscular HGB Cone 34 g/dL 32-36 Redcell Distribution WDTH 13 % 10.5-15 Platelet Count 206 CUMM 150-450 Mean Platelet Volume 7.9 um3 7.4-10.4 Absolute Neutrophil Count 2.7 1.5-7.7 Polysegmented Neutrophil 54 % 38-83 Band Neutrophil 1 % 0-8 Lymphocyte 37 % 25-47 Monocyte 6 % 0-13 Eosinophil 2 % 0-6 Macrocytosis SLIGHT Comp Metabolic Panel 12/26/2011 Sodium 137 mmol/L 135-145 Potassium 4.2 mmol/L 3.5-5.0 Chloride 102 mmol/L 101-111 Co2 (Carbon Dioxide) 28.0 mmol/L 22-32 Anion Gap 7.0 mmol/L 2-11 56 Glucose 87 mg/dL 70-100 BUN 15 mg/dL 6-24 Creatinine 0.7 mg/dL 0.50-1.40 One Over Creatinine 1.42 BUN/Creatinine Ratio 21.4 High 8-20 Calcium 9.6 mg/dL 8.1-9.9 Total Protein 6.9 GM/DL 6.2-8.1 Albumin 4.1 GM/DL 3.2-5.2 Globulin 2.8 GM/DL 2-4 Albumin/Globulin Ratio 1.5 1-3 Bilirubin Total 0.8 mg/dL 0.4-1.5 57 Alkaline Phosphatase 54 U/L 30-110 Alt (SGPT) 21 U/L 14-54 Ast (Sgot) 26 U/L 12-42 eGFR Non- 81.8 > 60 eGFR 105.2 > 60 58 Laboratory test finding 12/26/2011 TSH 1.92 MIU/ML 0.34-5.60 Thyroxine Free 0.71 ng/dL 0.61-1.24 CA 125 (Ovarian Cancer Ag) 7.7 U/mL 2.0-35.0 59 Lipid Profile (Trig/Chol/HDL) 12/26/2011 Triglyceride 110 mg/dL 40-200 Cholesterol 262 mg/dL High Less Than 200 60 High Density Lipoprotein 92 mg/dL High 40-60 61 Cholesterol/HDL Ratio 2.85 AVERAGE 1-4.44 Low Density Lipoprotein 148 mg/dL High Less Than 100 62 Laboratory test finding 12/26/2011 Vitamin B12 764 pg/mL 180-914 Folic Acid > 25.8 NG/ML See Below 63 Urine DIP 12/26/2011 Leukocytes NEG Neg Urine Nitrites NEG Neg Urine pH 7 High 5-6 Total Protein, Urine NEG Neg Urine Glucose NORM Norm Urine Ketones NEG Neg Urobilinogen NORM Norm Urine Bilirubin NEG Neg Urine Blood NEG Neg Specific [place] NA Low 1.01-1.02 Kelly (Antinuclear Antibodies) 02/13/2011 Antinuclear AB NEGATIVE Negative Laboratory test finding 02/13/2011 Erythrocyte Sed Rate 10 MM/HR 0-40 CBC Auto Diff 02/13/2011 White Blood Count 5.4 CUMM 4.8-10.8 Red Cell Count 4.07 CUMM Low 4.2-5.4 Hemoglobin 13.9 g/dL 12.0-16.0 Hematocrit 39 % 35-47 Mean Corpuscular Volume 97 um3 79-97 Mean Corpuscular Hemoglob 34 pg High 27-31 Mean Corpuscular HGB Cone 35 g/dL 32-36 Redcell Distribution WDTH 13 % 10.5-15 Platelet Count 206 CUMM 150-450 Mean Platelet Volume 7.2 um3 Low 7.4-10.4 Gran % 54.9 % 38-83 Lymph % 35.4 % 25-47 Mononuclear % 7.5 % 1-9 Eosinophil % 1.1 % 0-6 Basophil % 1.1 % 0-2 Abs Lymphs 1.9 1.0-4.8 Abs Mononuclear 0.4 0-0.8 Absolute Neutrophil Count 3.0 1.5-7.7 Abs Eosinophils 0.1 0-0.6 Abs Basophils 0.1 0-0.2 Comp Metabolic Panel 02/13/2011 Sodium 140 mmol/L 135-145 Potassium 3.9 mmol/L 3.5-5.0 Chloride 105 mmol/L 101-111 Co2 (Carbon Dioxide) 30.0 mmol/L 22-32 Anion Gap 5.0 mmol/L 2-11 64 Glucose 98 mg/dL 70-100 BUN 19 mg/dL 6-24 Creatinine 0.7 mg/dL 0.50-1.40 One Over Creatinine 1.42 BUN/Creatinine Ratio 27.1 High 8-20 Calcium 9.0 mg/dL 8.1-9.9 Total Protein 6.4 GM/DL 6.2-8.1 Albumin 3.7 GM/DL 3.2-5.2 Globulin 2.7 GM/DL 2-4 Albumin/Globulin Ratio 1.4 1-3 Bilirubin Total 0.9 mg/dL 0.4-1.5 65 Alkaline Phosphatase 55 U/L 30-110 Alt (SGPT) 22 U/L 14-54 Ast (Sgot) 23 U/L 12-42 eGFR Non- 82.0 > 60 eGFR 105.5 > 60 66 Laboratory test finding 02/13/2011 Troponin-I 0 NG/ML 0-0.06 67 Urine DIP 02/03/2011 Leukocytes neg Neg Urine Nitrites neg Neg Urine pH 5 5-6 Total Protein, Urine neg Neg Urine Glucose norm Norm Urine Ketones neg Neg Urobilinogen norm Norm Urine Bilirubin neg Neg Urine Blood neg Neg Specific [place] n/a Low 1.01-1.02 Laboratory test 01/03/2011 Thyroperoxidase Antibody 85.8 IU/mL High Less Than 68 finding 9.0 TSH 1.60 MIU/ML 0.34-5.60 68 Thyroxine Free 0.76 ng/dL 0.61-1.24 68 Comp Metabolic Panel 01/03/2011 Sodium 141 mmol/L 135-145 68 Potassium 4.3 mmol/L 3.5-5.0 68 Chloride 107 mmol/L 101-111 68 Co2 (Carbon Dioxide) 29.0 mmol/L 22-32 68 Anion Gap 5.0 mmol/L 2-11 68, 69 Glucose 89 mg/dL 70-100 68 BUN 14 mg/dL 6-24 68 Creatinine 0.70 mg/dL 0.50-1.40 68 One Over Creatinine 1.40 68 BUN/Creatinine Ratio 20.0 8-20 68 Calcium 9.1 mg/dL 8.1-9.9 68 Total Protein 6.3 GM/DL 6.2-8.1 68 Albumin 4.0 GM/DL 3.2-5.2 68 Globulin 2.3 GM/DL 2-4 68 Albumin/Globulin Ratio 1.7 1-3 68 Bilirubin Total 0.7 mg/dL 0.4-1.5 68, 70 Alkaline Phosphatase 49 U/L 30-110 68 Alt (SGPT) 33 U/L 14-54 68 Ast (Sgot) 35 U/L 12-42 68 eGFR Non- 82.0 > 60 68 eGFR 105.5 > 60 68, 71 Urine DIP 01/03/2011 Leukocytes NEG Neg Urine Nitrites NEG Neg Urine pH 5 5-6 Total Protein, Urine NEG Neg Urine Glucose NORM Norm Urine Ketones NEG Neg Urobilinogen NORM Norm Urine Bilirubin NEG Neg Urine Blood TRACE Neg Specific [place] NA Low 1.01-1.02 Laboratory test 01/03/2011 C Reactive Protein 1.9 mg/L Less Than 3 68, 72 finding High Sensit Vitamin D, 25 Hydroxy 01/03/2011 25-Hydroxy Vitamin <4.0 ng/mL () 68 D2 25-Hydroxy Vitamin D3 42 ng/mL () 68 25-Hydroxy Vitamin D Total 42 ng/mL () 68, 73 CBC Auto Diff 01/03/2011 White Blood Count 5.5 CUMM 4.8-10.8 68 Red Cell Count 4.20 CUMM 4.2-5.4 68 Hemoglobin 14.0 g/dL 12.0-16.0 68 Hematocrit 41 % 35-47 68 Mean Corpuscular Volume 99 um3 High 79-97 68 Mean Corpuscular Hemoglob 33 pg High 27-31 68 Mean Corpuscular HGB Cone 34 g/dL 32-36 68 Redcell Distribution WDTH 13 % 10.5-15 68 Platelet Count 213 CUMM 150-450 68 Mean Platelet Volume 7.8 um3 7.4-10.4 68 Gran % 50.1 % 38-83 68 Lymph % 41.1 % 25-47 68 Mononuclear % 7.0 % 1-9 68 Eosinophil % 1.4 % 0-6 68 Basophil % 0.4 % 0-2 68 Abs Lymphs 2.3 1.0-4.8 68 Abs Mononuclear 0.4 0-0.8 68 Absolute Neutrophil Count 2.7 1.5-7.7 68 Abs Eosinophils 0.1 0-0.6 68 Abs Basophils 0 0-0.2 68 Lipid Profile (Trig/Chol/HDL) 01/03/2011 Triglyceride 149 mg/dL 40-200 68 Cholesterol 256 mg/dL High Less Than 200 68, 74 High Density Lipoprotein 78 mg/dL High 40-60 68, 75 Cholesterol/HDL Ratio 3.28 AVERAGE 1-4.44 68 Low Density Lipoprotein 148 mg/dL High Less Than 100 68, 76 Comp Metabolic Panel 11/30/2009 Sodium 139 mmol/L 135-145 Potassium 4.2 mmol/L 3.5-5.0 Chloride 104 mmol/L 101-111 Co2 (Carbon Dioxide) 27.0 mmol/L 22-32 Anion Gap 8.0 mmol/L 2-11 77 Glucose 93 mg/dL 70-100 78 BUN 13 mg/dL 6-24 Creatinine 0.70 mg/dL 0.50-1.40 One Over Creatinine 1.40 BUN/Creatinine Ratio 18.6 8-20 Calcium 9.7 mg/dL 8.1-9.9 79 Total Protein 6.3 GM/DL 6.2-8.1 Albumin 4.1 GM/DL 3.2-5.2 Globulin 2.2 GM/DL 2-4 Albumin/Globulin Ratio 1.9 1-3 Bilirubin Total 0.9 mg/dL 0.4-1.5 80 Alkaline Phosphatase 48 U/L 30-110 Alt (SGPT) 19 U/L 14-54 Ast (Sgot) 22 U/L 12-42 eGFR Non- 87.4 > 60 eGFR 105.8 > 60 81 Laboratory test finding 11/30/2009 Ferritin 109 NG/ML 11.0-307 Transferrin 146 mg/dL 170-340 82 CBC With Electronic Diff 11/30/2009 White Blood Count 5.4 CUMM 4.8-10.8 Red Cell Count 4.28 CUMM 4.2-5.4 Hemoglobin 14.5 g/dL 12.0-16.0 Hematocrit 42 % 35-47 Mean Corpuscular Volume 98 um3 High 79-97 Mean Corpuscular Hemoglob 34 pg High 27-31 Mean Corpuscular HGB Cone 35 g/dL 32-36 Redcell Distribution WDTH 12 % 10.5-15 Platelet Count 207 CUMM 150-450 Mean Platelet Volume 7.9 um3 7.4-10.4 Gran % 46.8 % 38-83 Lymph % 46.2 % 25-47 Mononuclear % 5.9 % 1-9 Eosinophil % 0.6 % 0-6 Basophil % 0.5 % 0-2 Abs Lymphs 2.5 1.0-4.8 Abs Mononuclear 0.3 0-0.8 Absolute Neutrophil Count 2.5 1.5-7.7 Abs Eosinophils 0 0-0.6 Abs Basophils 0 0-0.2 Laboratory test finding 11/30/2009 TSH 0.90 MIU/ML 0.34-5.60 Urine DIP 11/30/2009 Leukocytes NEG Neg Urine Nitrites NEG Neg Urine pH 5 5-6 Total Protein, Urine NEG Neg Urine Glucose NORM Norm Urine Ketones NEG Neg Urobilinogen NORM Norm Urine Bilirubin NEG Neg Urine Blood NEG Neg Specific [place] N/A Low 1.01-1.02 Laboratory test finding 12/23/2008 Vitamin B12 716 pg/mL 180-914 Folic Acid > 20.0 NG/ML High 2-16 Retic Count 12/23/2008 Reticulocyte Count 1.27 % 0.5-1.5 Corrected Retic 1.1 % 0.5-1.5 Retic Index 1.1 Mean Retic Volume 114.4 Immature Retic Fraction 0.36 RBC Retic Count 4.06 CUMM Low 4.6-6.2 Hematocrit For Retic Coun 40 % 35-47 CBC With Electronic Diff 12/23/2008 White Blood Count 6.3 CUMM 4.8-10.8 Red Cell Count 4.06 CUMM Low 4.2-5.4 Hemoglobin 13.3 g/dL 12.0-16.0 Hematocrit 40 % 35-47 Mean Corpuscular Volume 99 um3 High 79-97 Mean Corpuscular Hemoglob 33 pg High 27-31 Mean Corpuscular HGB Cone 33 g/dL 32-36 Redcell Distribution WDTH 12 % 10.5-15 Platelet Count 210 CUMM 150-450 Mean Platelet Volume 7.5 um3 7.4-10.4 Gran % 48.6 % 38-83 Lymph % 43.1 % 25-47 Mononuclear % 6.2 % 1-9 Eosinophil % 1.7 % 0-6 Basophil % 0.4 % 0-2 Abs Lymphs 2.7 1.0-4.8 Abs Mononuclear 0.4 0-0.8 Absolute Neutrophil Count 3.1 1.5-7.7 Abs Eosinophils 0.1 0-0.6 Abs Basophils 0 0-0.2 CBC With Electronic Diff 11/26/2008 White Blood Count 5.5 CUMM 4.8-10.8 Red Cell Count 4.31 CUMM 4.2-5.4 Hemoglobin 14.4 g/dL 12.0-16.0 Hematocrit 43 % 35-47 Mean Corpuscular Volume 100 um3 High 79-97 Mean Corpuscular Hemoglob 33 pg High 27-31 Mean Corpuscular HGB Cone 33 g/dL 32-36 Redcell Distribution WDTH 13 % 10.5-15 Platelet Count 224 CUMM 150-450 Mean Platelet Volume 7.3 um3 Low 7.4-10.4 Gran % 42.4 % 38-83 Lymph % 46.5 % 25-47 Mononuclear % 7.8 % 1-9 Eosinophil % 2.8 % 0-6 Basophil % 0.5 % 0-2 Abs Lymphs 2.6 1.0-4.8 Abs Mononuclear 0.4 0-0.8 Absolute Neutrophil Count 2.3 1.5-7.7 Abs Eosinophils 0.2 0-0.6 Abs Basophils 0 0-0.2 83 Comp Metabolic Panel 11/26/2008 Sodium 139 mmol/L 135-145 Potassium 4.4 mmol/L 3.5-5.0 Chloride 103 mmol/L 101-111 Co2 (Carbon Dioxide) 30.0 mmol/L 22-32 Anion Gap 6.0 mmol/L 2-11 84 Glucose 90 mg/dL 70-100 85 BUN 13 mg/dL 6-24 Creatinine 0.70 mg/dL 0.50-1.40 One Over Creatinine 1.40 BUN/Creatinine Ratio 18.6 8-20 Calcium 9.2 mg/dL 8.1-9.9 86 Total Protein 6.0 GM/DL Low 6.2-8.1 Albumin 3.7 GM/DL 3.2-5.2 Globulin 2.3 GM/DL 2-4 Albumin/Globulin Ratio 1.6 1-3 Bilirubin Total 0.7 mg/dL 0.4-1.5 87 Alkaline Phosphatase 59 U/L 30-110 Alt (SGPT) 20 U/L 14-54 Ast (Sgot) 23 U/L 12-42 eGFR Non- 87.7 > 60 eGFR 106.1 > 60 88 Laboratory test finding 11/26/2008 TSH 2.54 MIU/ML 0.34-5.60 Lipid Profile (Trig/Chol/HDL) 11/26/2008 Triglyceride 103 mg/dL 40-200 Cholesterol 265 mg/dL High Less Than 200 89 High Density Lipoprotein 84 mg/dL High 40-60 90 Cholesterol/HDL Ratio 3.15 AVERAGE 1-4.44 Low Density Lipoprotein 160 mg/dL High Less Than 100 91 Laboratory test finding 11/26/2008 Thyroxine Free 0.71 NG/ML 0.61-1.24 92 Laboratory test finding 11/24/2008 Cytology 93 <SEE NOTE> Urine DIP 11/24/2008 Leukocytes NEG Neg Urine Nitrites NEG Neg Urine pH 7 High 5-6 Total Protein, Urine NEG Neg Urine Glucose NORM Norm Urine Ketones NEG Neg Urobilinogen NORM Norm Urine Bilirubin NEG Neg Urine Blood NEG Neg Specific [place] NA Low 1.01-1.02 Laboratory test finding 09/05/2008 Strep Screen NEG Neg Surgical Pathology 04/21/2008 Surgical Pathology 94 <SEE NOTE> Comp Metabolic Panel 11/12/2007 Sodium 139 mmol/L 135-145 Potassium 4.2 mmol/L 3.5-5.0 Chloride 105 mmol/L 101-111 Co2 (Carbon Dioxide) 32.0 mmol/L 22-32 Anion Gap 2.0 mmol/L 2-11 95 Glucose 80 mg/dL 70-105 BUN 16 mg/dL 6-24 Creatinine 0.8 mg/dL 0.5-1.4 One Over Creatinine 1.25 BUN/Creatinine Ratio 20.0 8-20 Calcium 9.3 mg/dL 8.1-9.9 96 Total Protein 6.3 GM/DL 6.2-8.1 Albumin 3.7 GM/DL 3.2-5.2 Globulin 2.6 GM/DL 2-4 Albumin/Globulin Ratio 1.4 1-3 Bilirubin Total 0.7 mg/dL 0.4-1.5 Alkaline Phosphatase 54 U/L 30-110 Alt (SGPT) 22 U/L 14-54 Ast (Sgot) 21 U/L 12-42 Urine DIP 11/12/2007 Leukocytes NEG Neg Urine Nitrites NEG Neg Urine pH 7 High 5-6 Total Protein, Urine NEG Neg Urine Glucose NORM Norm Urine Ketones NEG Neg Urobilinogen NORM Norm Urine Bilirubin NEG Neg Urine Blood NEG Neg Protein Electrophoresis Serum 11/12/2007 Albumin 3.29 GM/DL 3.0-4.35 Alpha 1 0.16 GM/DL 0.09-0.33 Alpha 2 0.95 GM/DL 0.59-1.18 Beta 0.78 GM/DL 0.68-1.02 Gamma 1.11 GM/DL 0.76-1.60 Albumin % 52.2 % 46-63 Alpha 1 % 2.5 % 1.2-5.3 Alpha 2 % 15.1 % 9-17 Beta % 12.4 % 10-16 Gamma % 17.6 % 12-22 A/G Ratio 1.1 0.9-2 Total Protein 6.3 GM/DL 6.2-8.1 Spep Comments (SEE NOTE) 97 Vitamin D.25 Hydroxy 11/12/2007 25-Hydroxy Vitamin D2 <4.0 ng/mL () 25-Hydroxy Vitamin D3 33 ng/mL () 25-Hydroxy Vitamin D Total 33 ng/mL () 98 Laboratory test finding 11/12/2007 Vitamin B12 781 pg/mL 180-914 Laboratory test finding 10/25/2006 Cytology 99 <SEE NOTE> CBC With Electronic Diff 10/25/2006 White Blood Count 7.5 CUMM 4.8-10.8 Abs Basophils 0 0-0.2 Abs Eosinophils 0.1 0-0.6 Absolute Neutrophil Count 3.6 1.5-7.7 Abs Lymphs 3.3 1.0-4.8 Abs Mononuclear 0.5 0-0.8 Basophil % 0.3 % 0-2 Hematocrit 41 % 35-47 Hemoglobin 13.9 g/dL 12.0-16.0 Eosinophil % 1.2 % 0-6 Gran % 47.9 % 38-83 Lymph % 43.8 % 20-45 Mean Corpuscular HGB Cone 34 g/dL 32-36 Mean Corpuscular Hemoglob 34 pg High 27-31 Mean Corpuscular Volume 97 um3 79-97 Mean Platelet Volume 7.8 um3 7.4-10.4 Mononuclear % 6.8 % 1-9 Platelet Count 263 CUMM 150-450 Red Cell Count 4.17 CUMM Low 4.2-5.4 Redcell Distribution WDTH 13 % 10.5-15 Comp Metabolic Panel 10/25/2006 One Over Creatinine 1.11 Anion Gap 7.0 mmol/L 2-11 100 Albumin/Globulin Ratio 1.6 1-3 Albumin 3.9 GM/DL 3.2-5.2 Alkaline Phosphatase 56 U/L 30-110 Alt (SGPT) 22 U/L 14-54 Ast (Sgot) 25 U/L 12-42 BUN 13 mg/dL 6-24 Calcium 9.4 mg/dL 8.7-10.2 Chloride 105 mmol/L 101-111 Co2 (Carbon Dioxide) 30.0 mmol/L 22-32 Globulin 2.4 GM/DL 2-4 Glucose 86 mg/dL 70-105 Potassium 4.3 mmol/L 3.5-5.0 Sodium 142 mmol/L 135-145 Bilirubin Total 0.5 mg/dL 0.4-1.5 Total Protein 6.3 GM/DL 6.2-8.1 BUN/Creatinine Ratio 14.4 8-20 Creatinine 0.9 mg/dL 0.5-1.4 Urine DIP 10/25/2006 Leukocytes NEG Neg Urine Nitrites NEG Neg Urine pH 5 5-6 Total Protein, Urine NEG Neg Urine Glucose NORM Norm Urine Ketones NEG Neg Urobilinogen NORM Norm Urine Bilirubin NEG Neg Urine Blood NEG Neg Specific [place] NA Low 1.01-1.02 Fungus Culture Skin 09/22/2006 Fungus Culture [MOLD]- ID TO FO 101, 102 Skin/Nails <SEE NOTE> Laboratory test 09/22/2006 Fungus Culture [MOLD]- ID TO FO 103, 104 finding Skin/Nails <SEE NOTE> Fungal Identification - Sli [ASPERGILLUS NIG <SEE NOTE> 103, 105 Urine DIP 10/26/2005 Leukocytes NEG Neg Urine Nitrites NEG Neg Urine pH 5 5-6 Total Protein, Urine NEG Neg Urine Glucose NL Norm Urine Ketones NL Neg Urobilinogen NL Norm Urine Bilirubin NL Neg Urine Blood NL Neg Specific [place] N/A Low 1.01-1.02 Lipid Profile (Trig/Chol/HDL) 10/26/2005 Cholesterol 264 mg/dL High Less Than 200 106 Triglyceride 69 mg/dL 40-200 High Density Lipoprotein 84 mg/dL High 40-60 107 Low Density Lipoprotein 166 mg/dL High Less Than 100 108 Cholesterol/HDL Ratio 3.14 AVERAGE 1-4.44 Comp Metabolic Panel 10/26/2005 One Over Creatinine 1.11 Anion Gap 7.0 mmol/L 2-11 109 Albumin/Globulin Ratio 1.6 1-3 Albumin 3.7 GM/DL 3.2-5.2 Alkaline Phosphatase 58 U/L 30-110 Alt (SGPT) 23 U/L 14-54 Ast (Sgot) 24 U/L 12-42 BUN 11 mg/dL 6-24 Calcium 9.2 mg/dL 8.7-10.2 Chloride 104 mmol/L 101-111 Co2 (Carbon Dioxide) 31.0 mmol/L 22-32 Globulin 2.3 GM/DL 2-4 Glucose 94 mg/dL 70-105 Potassium 4.0 mmol/L 3.5-5.0 Sodium 142 mmol/L 135-145 Bilirubin Total 0.7 mg/dL 0.4-1.5 Total Protein 6.0 GM/DL Low 6.2-8.1 BUN/Creatinine Ratio 12.2 8-20 Creatinine 0.9 mg/dL 0.5-1.4 Laboratory test finding 10/26/2005 TSH 2.58 MIU/ML 0.34-5.60 Urine DIP 08/02/2005 Leukocytes neg Neg Urine Nitrites neg Neg Urine pH 5 5-6 Total Protein, Urine slightest trace Neg Urine Glucose norm Norm Urine Ketones neg Neg Urobilinogen norm Norm Urine Bilirubin neg Neg Urine Blood neg Neg Specific [place] n/a Low 1.01-1.02 Comp Metabolic Panel 07/18/2005 One Over Creatinine 1.11 Anion Gap 5.0 mmol/L 2-11 110 Albumin/Globulin Ratio 1.6 1-3 Albumin 3.5 GM/DL 3.2-5.2 Alkaline Phosphatase 49 U/L 30-110 Alt (SGPT) 31 U/L 14-54 Ast (Sgot) 33 U/L 12-42 BUN 10 mg/dL 6-24 Calcium 8.6 mg/dL Low 8.7-10.2 Chloride 102 mmol/L 101-111 Co2 (Carbon Dioxide) 30.0 mmol/L 22-32 Globulin 2.2 GM/DL 2-4 Glucose 98 mg/dL 70-105 Potassium 3.8 mmol/L 3.5-5.0 Sodium 137 mmol/L 135-145 Bilirubin Total 0.6 mg/dL 0.4-1.5 Total Protein 5.7 GM/DL Low 6.2-8.1 BUN/Creatinine Ratio 11.1 8-20 Creatinine 0.9 mg/dL 0.5-1.4 Lipid Profile (Trig/Chol/HDL) 07/18/2005 Cholesterol 188 mg/dL Less Than 200 111 Triglyceride 49 mg/dL 40-200 High Density Lipoprotein 60 mg/dL 40-60 112 Low Density Lipoprotein 118 mg/dL High Less Than 100 113 Cholesterol/HDL Ratio 3.13 AVERAGE 1-4.44 Laboratory test finding 07/18/2005 TSH 1.04 MIU/ML 0.34-5.60 Thyroxine 6.8 g/dL 5-12 1 Desirable: <150 Borderline High: 150-199 High: 200-499 Very High: >500 2 Desirable: <200 Borderline High: 200-239 High: >239 3 Low: <40 Desirable: 40-60 High: >60 4 Desirable: <100 Near Optimal: 100-129 Borderline High: 130-159 High: 160-189 Very High: >189 5 Therapeutic target for the treatment of diabetes mellitus patients is <7% HBA1C, and in selective patients <6.0%. Please refer to [place] [employer] diabetic care guidelines for further information. 6 No bands detected 7 Specific serologic response to B. burgdorferi infection is not detected, but cannot rule out early infection during which low or undetectable antibody levels to B. burgdorferi may be present. If clinically indicated, a new serum specimen should be submitted in 7-14 days. ADDITIONAL INFORMATION CDC criteria require >=5 bands for IgG or >=2 bands for IgM for the Immunoblot to be considered positive. Bands (e.g.,p41) may be detected in patients without Lyme disease, and patterns not meeting the CDC criteria should be interpreted with caution. Immunoblot should be ordered only on specimens that are positive or equivocal by a FDA-licensed Lyme disease antibody screening test (e.g., EIA). Test Performed by: [facility] - [address] [address] 8 ADDITIONAL INFORMATION This test was developed and its performance characteristics determined by [facility] in a manner consistent with CLIA requirements. This test has not been cleared or approved by the U.S. Food and Drug Administration. 9 ADDITIONAL INFORMATION This test was developed and its performance characteristics determined by [facility] in a manner consistent with CLIA requirements. This test has not been cleared or approved by the U.S. Food and Drug Administration. 10 ADDITIONAL INFORMATION This test was developed and its performance characteristics determined by [facility] in a manner consistent with CLIA requirements. This test has not been cleared or approved by the U.S. Food and Drug Administration. Test Performed by: [facility] - [address] [address] 11 Because ethnic data is not always readily available, this report includes an eGFR for both -Americans and non- Americans. The National Kidney Disease Education Program (NKDEP) does not endorse the use of the MDRD equation for patients that are not between the ages of 18 and 70, are , have extremes of body size, muscle mass, or nutritional status, or are non- or non-. According to the National Kidney Foundation, irrespective of diagnosis, the stage of the disease is based on the level of kidney function: Stage Description GFR(mL/min/1.73 m(2)) 1 Kidney damage with normal or decreased GFR 90 2 Kidney damage with mild decrease in GFR 60-89 3 Moderate decrease in GFR 30-59 4 Severe decrease in GFR 15-29 5 Kidney failure <15 (or dialysis) 12 [id number] 14 Normal Range 180 to 914 Indeterminate Range 145 to 180 Deficient Range <145 15 [id number] 16 [id number] 17 Test Performed by: [facility] - [address] [id number] 18 SEE RESULT BELOW Name: ERWIN ATKINSON : [address]: Savannah Egan MD Acct: [id number] Unit: [id number] AGE: 81 Location: [facility] Re11/10/16 SEX: F Status: REG REF SPEC: [id number] [place]: 11/10/[address] [facility] [address]: Savannah Egan MD REQ: [id number] RECD: 11/10/16 STATUS: COMP _ SOURCE: STOOL SPDESC: ORDERED: Gianluca Alfonso COMMENTS: [id number] Procedure Result Reported Site Stool Occult Blood (1) Final 11/10/16- 1920 ML Stool Occult Blood Negative * ML - [facility] . END OF REPORT * ML=Testing performed at Main Lab DEPARTMENT OF PATHOLOGY, [address] [place] [address] Gerardo Coles M.D. Director [facility] # [id number] 19 Desirable <150 Borderline high 150-199 High 200-499 Very High >500 20 Desirable <200 Borderline high 200-239 High >239 21 Low <40 Desirable: 40-60 High: >60 22 Desirable: <100 mg/dL Near Optimal: 100-129 mg/dL Borderline High: 130-159 mg/dL High: 160-189 mg/dL Very High: >189 mg/dL 23 Because ethnic data is not always readily available, this report includes an eGFR for both -Americans and non- Americans. The National Kidney Disease Education Program (NKDEP) does not endorse the use of the MDRD equation for patients that are not between the ages of 18 and 70, are , have extremes of body size, muscle mass, or nutritional status, or are non- or non-. According to the National Kidney Foundation, irrespective of diagnosis, the stage of the disease is based on the level of kidney function: Stage Description GFR(mL/min/1.73 m(2)) 1 Kidney damage with normal or decreased GFR 90 2 Kidney damage with mild decrease in GFR 60-89 3 Moderate decrease in GFR 30-59 4 Severe decrease in GFR 15-29 5 Kidney failure <15 (or dialysis) 24 Therapeutic target for the treatment of diabetes Mellitus patients is <7% HBA1C, and in selective patients <6.0%.Please refer to [place] [employer] Diabetic care guidelines for further information. 25 SEE RESULT BELOW Name: DEVORAERWIN : [address]: Savannah Egan MD Acct: [id number] Unit: [id number] AGE: 80 Location: [facility] Re04/11/16 SEX: F Status: REG REF SPEC: [id number] [place]: 04/11/16-[address] [facility] [address]: Savannah Egan MD REQ: [id number] RECD: 04/11/16 STATUS: COMP _ SOURCE: URINE SPDESC: ORDERED: Urine Culture Procedure Result Reported Site Urine Culture Final 04/12/16- 1613 ML No Growth (<1,000 CFU/mL) * ML - [facility] . END OF REPORT * ML=Testing performed at Main Lab DEPARTMENT OF PATHOLOGY, [address] [place] [address] Gerardo Coles M.D. Director [facility] # [id number] 26 Test Performed by: [place] [address] Fl[employer] Core Welder: Torey Uriostegui II, M.D., Ph.D. 27 Normal Range 180 to 914 Indeterminate Range 145 to 180 Deficient Range <145 28 [id number] 30 Because ethnic data is not always readily available, this report includes an eGFR for both -Americans and non- Americans. The National Kidney Disease Education Program (NKDEP) does not endorse the use of the MDRD equation for patients that are not between the ages of 18 and 70, are , have extremes of body size, muscle mass, or nutritional status, or are non- or non-. According to the National Kidney Foundation, irrespective of diagnosis, the stage of the disease is based on the level of kidney function: Stage Description GFR(mL/min/1.73 m(2)) 1 Kidney damage with normal or decreased GFR 90 2 Kidney damage with mild decrease in GFR 60-89 3 Moderate decrease in GFR 30-59 4 Severe decrease in GFR 15-29 5 Kidney failure <15 (or dialysis) 31 [id number] 32 Because ethnic data is not always readily available, this report includes an eGFR for both -Americans and non- Americans. The National Kidney Disease Education Program (NKDEP) does not endorse the use of the MDRD equation for patients that are not between the ages of 18 and 70, are , have extremes of body size, muscle mass, or nutritional status, or are non- or non-. According to the National Kidney Foundation, irrespective of diagnosis, the stage of the disease is based on the level of kidney function: Stage Description GFR(mL/min/1.73 m(2)) 1 Kidney damage with normal or decreased GFR 90 2 Kidney damage with mild decrease in GFR 60-89 3 Moderate decrease in GFR 30-59 4 Severe decrease in GFR 15-29 5 Kidney failure <15 (or dialysis) 33 [MG] affected by ICTERUS 34 Reference Range and Interpretation: TnI (ng/mL) Interpretation Less Than 0.03 ng/mL Not supportive of diagnosis of VA 0.03 - 0.50 ng/mL Indeterminate: suggest serial studies if clinically indicated. Greater than 0.5 ng/mL Consistent with diagnosis of VA 35 Because ethnic data is not always readily available, this report includes an eGFR for both -Americans and non- Americans. The National Kidney Disease Education Program (NKDEP) does not endorse the use of the MDRD equation for patients that are not between the ages of 18 and 70, are , have extremes of body size, muscle mass, or nutritional status, or are non- or non-. According to the National Kidney Foundation, irrespective of diagnosis, the stage of the disease is based on the level of kidney function: Stage Description GFR(mL/min/1.73 m(2)) 1 Kidney damage with normal or decreased GFR 90 2 Kidney damage with mild decrease in GFR 60-89 3 Moderate decrease in GFR 30-59 4 Severe decrease in GFR 15-29 5 Kidney failure <15 (or dialysis) 36 Instrument used is [employer] DXI 600. The assay is a two-site immunoenzymatic "sandwich" assay. Do not interpret CA125 levels as absolute evidence of the presence or the absence of malignant disease. Use in conjunction with information from the clinical evaluation of the patient and other diagnostic procedures. Values obtained with different assay methods cannot be used interchangeably. 37 Acute inflammation: >10.00 38 Because ethnic data is not always readily available, this report includes an eGFR for both -Americans and non- Americans. The National Kidney Disease Education Program (NKDEP) does not endorse the use of the MDRD equation for patients that are not between the ages of 18 and 70, are , have extremes of body size, muscle mass, or nutritional status, or are non- or non-. According to the National Kidney Foundation, irrespective of diagnosis, the stage of the disease is based on the level of kidney function: Stage Description GFR(mL/min/1.73 m(2)) 1 Kidney damage with normal or decreased GFR 90 2 Kidney damage with mild decrease in GFR 60-89 3 Moderate decrease in GFR 30-59 4 Severe decrease in GFR 15-29 5 Kidney failure <15 (or dialysis) 39 >100 to <200 pg/mL: likely compensated congestive heart failure (CHF) 200 to 400 pg/mL: likely moderate CHF >400 pg/mL: likely moderate to severe CHF 40 Reference Range and Interpretation: TnI (ng/mL) Interpretation Less Than 0.03 ng/mL Not supportive of diagnosis of VA 0.03 - 0.50 ng/mL Indeterminate: suggest serial studies if clinically indicated. Greater than 0.5 ng/mL Consistent with diagnosis of VA 41 FASTING ~~1601.FASTING 42 Desirable <150 Borderline high 150-199 High 200-499 Very High >500 43 Desirable <200 Borderline high 200-239 High >239 44 Low <40 Desirable: 40-60 High: >60 45 Desirable <100 Near Optimal 100-129 Borderline high 130-159 High 160-189 Very High >189 46 Because ethnic data is not always readily available, this report includes an eGFR for both -Americans and non- Americans. The National Kidney Disease Education Program (NKDEP) does not endorse the use of the MDRD equation for patients that are not between the ages of 18 and 70, are , have extremes of body size, muscle mass, or nutritional status, or are non- or non-. According to the National Kidney Foundation, irrespective of diagnosis, the stage of the disease is based on the level of kidney function: Stage Description GFR(mL/min/1.73 m(2)) 1 Kidney damage with normal or decreased GFR 90 2 Kidney damage with mild decrease in GFR 60-89 3 Moderate decrease in GFR 30-59 4 Severe decrease in GFR 15-29 5 Kidney failure <15 (or dialysis) 47 FASTING 48 FASTING 49 Normal Range 180 to 914 Indeterminate Range 145 to 180 Deficient Range <145 50 -- REFERENCE VALUE -- 25-HYDROXY D TOTAL (D2+D3) Optimum levels in the healthy population are 20-50, patients with bone disease may benefit from higher levels within this range. Test Performed by: [place] [address] Flux Core Welder: Ty Baird III, M.D. 51 FASTING 52 FASTING 53 Because ethnic data is not always readily available, this report includes an eGFR for both -Americans and non- Americans. The National Kidney Disease Education Program (NKDEP) does not endorse the use of the MDRD equation for patients that are not between the ages of 18 and 70, are , have extremes of body size, muscle mass, or nutritional status, or are non- or non-. According to the National Kidney Foundation, irrespective of diagnosis, the stage of the disease is based on the level of kidney function: Stage Description GFR(mL/min/1.73 m(2)) 1 Kidney damage with normal or decreased GFR 90 2 Kidney damage with mild decrease in GFR 60-89 3 Moderate decrease in GFR 30-59 4 Severe decrease in GFR 15-29 5 Kidney failure <15 (or dialysis) 54 HDL Interpretation: Undesirable: High Risk: Less than 40 mg/dL Desirable: Low Risk: Greater than 60 mg/dL 55 LDL Interpretation: Low Risk Optimal Level: LDL Less than 100 mg/dL Near or Above Optimal: LDL 100-129 mg/dL Borderline High Risk: LDL 130-159 mg/dL High Risk: LDL 160-189 mg/dL Very High Risk: LDL Greater than 189 mg/dL 56 Anion gap measurement may be of limited value in the presence of any alkalosis, especially in a combined acid base disorder. . 57 A metabolite of Naproxen, O-desmethylnaproxen, has been shown to interfere with the Jendrassik-Platter method for measuring total bilirubin. Samples from patients who have taken Naproxen have shown spurious elevation in total bilirubin levels. 58 Because ethnic data is not always readily available, this report includes an eGFR for both -Americans and non- Americans. The National Kidney Disease Education Program (NKDEP) does not endorse the use of the MDRD equation for patients that are not between the ages of 18 and 70, are , have extremes of body size, muscle mass, or nutritional status, or are non- or non-. According to the National Kidney Foundation, irrespective of diagnosis, the stage of the disease is based on the level of kidney function: Stage Description GFR(mL/min/1.73 m(2)) 1 Kidney damage with normal or decreased GFR 90 2 Kidney damage with mild decrease in GFR 60-89 3 Moderate decrease in GFR 30-59 4 Severe decrease in GFR 15-29 5 Kidney failure <15 (or dialysis) 59 Assay by chemiluminescence microparticle immunoassay on the [employer]. The CA 125 assay is not recommended as a cancer screening test, but rather as an aid in monitoring response to therapy for patients with epithelial ovarian cancer. Serial testing for patients CA 125 assay values should be used in conjunction with other methods used for screening ovarian cancer. Values obtained with different methods or kits cannot be used interchangeably for patient monitoring. Results cannot be interpreted as absolute evidence of the presence or absence of malignancy. 60 CHOLESTEROL INTERPRETATION: Desirable: Less than 200 MG/DL Borderline-High Risk: 200-239 MG/DL High-Risk: 240 MG/DL and over 61 HDL INTERPRETATION: Undesirable: High Risk: Less than 40 MG/DL Desirable: Low Risk: Greater than 60 MG/DL 62 LDL INTERPRETATION: Low Risk Optimal Level: LDL Less than 100 MG/DL Near or Above Optimal: LDL 100-129 MG/DL Borderline High Risk: LDL 130-159 MG/DL High Risk: LDL 160-189 MG/DL Very High Risk: LDL Greater than 189 MG/DL 63 Please note: New reference range, effective 05/12/11 NORMAL REFERENCE RANGE: GREATER THAN 4.1 NG/ML 64 Anion gap measurement may be of limited value in the presence of any alkalosis, especially in a combined acid base disorder. . 65 A metabolite of Naproxen, O-desmethylnaproxen, has been shown to interfere with the Jendrassik-Porsche method for measuring total bilirubin. Samples from patients who have taken Naproxen have shown spurious elevation in total bilirubin levels. 66 Because ethnic data is not always readily available, this report includes an eGFR for both -Americans and non- Americans. The National Kidney Disease Education Program (NKDEP) does not endorse the use of the MDRD equation for patients that are not between the ages of 18 and 70, are , have extremes of body size, muscle mass, or nutritional status, or are non- or non-. According to the National Kidney Foundation, irrespective of diagnosis, the stage of the disease is based on the level of kidney function: Stage Description GFR(mL/min/1.73 m(2)) 1 Kidney damage with normal or decreased GFR 90 2 Kidney damage with mild decrease in GFR 60-89 3 Moderate decrease in GFR 30-59 4 Severe decrease in GFR 15-29 5 Kidney failure <15 (or dialysis) 67 New Reference Range and Interpretation effective 02/22/2002 TnI (ng/ml) INTERPRETATION Less Than 0.06 ng/mL NOT SUPPORTIVE OF DIAGNOSIS OF VA 0.06 - 0.50 ng/ml INDETERMINATE: SUGGEST SERIAL STUDIES IF CLINICALLY INDICATED. Greater than 0.5 ng/mL CONSISTENT WITH DIAGNOSIS OF VA . 68 NONFASTING 69 Anion gap measurement may be of limited value in the presence of any alkalosis, especially in a combined acid base disorder. . 70 A metabolite of Naproxen, O-desmethylnaproxen, has been shown to interfere with the Jendrassik-Porsche method for measuring total bilirubin. Samples from patients who have taken Naproxen have shown spurious elevation in total bilirubin levels. 71 Because ethnic data is not always readily available, this report includes an eGFR for both -Americans and non- Americans. The National Kidney Disease Education Program (NKDEP) does not endorse the use of the MDRD equation for patients that are not between the ages of 18 and 70, are , have extremes of body size, muscle mass, or nutritional status, or are non- or non-. According to the National Kidney Foundation, irrespective of diagnosis, the stage of the disease is based on the level of kidney function: Stage Description GFR(mL/min/1.73 m(2)) 1 Kidney damage with normal or decreased GFR 90 2 Kidney damage with mild decrease in GFR 60-89 3 Moderate decrease in GFR 30-59 4 Severe decrease in GFR 15-29 5 Kidney failure <15 (or dialysis) 72 Less Than 1.0......Low Risk of Cardiovascular Disease 1.0-3.0............Medium Risk (<2 Fold Increase) Greater Than 3.0...High Risk (Approximately 2-Fold Increase) 73 -- REFERENCE VALUE -- 25-HYDROXY D TOTAL (D2+D3) Optimum levels in the normal population are 25-80 Test Performed by: [facility] Path[facility] [address] [place], [place] [id number] Flux Core Welder: Ty Baird III, M.D. 74 CHOLESTEROL INTERPRETATION: Desirable: Less than 200 MG/DL Borderline-High Risk: 200-239 MG/DL High-Risk: 240 MG/DL and over 75 HDL INTERPRETATION: Undesirable: High Risk: Less than 40 MG/DL Desirable: Low Risk: Greater than 60 MG/DL 76 LDL INTERPRETATION: Low Risk Optimal Level: LDL Less than 100 MG/DL Near or Above Optimal: LDL 100-129 MG/DL Borderline High Risk: LDL 130-159 MG/DL High Risk: LDL 160-189 MG/DL Very High Risk: LDL Greater than 189 MG/DL 77 Anion gap measurement may be of limited value in the presence of any alkalosis, especially in a combined acid base disorder. . 78 Note change in reference range as of 01/10/08. The change was based on recommendations from the [place] [employer]. 79 Please note change in reference range effective 07 . 80 A metabolite of Naproxen, O-desmethylnaproxen, has been shown to interfere with the Jendrassik-Porsche method for measuring total bilirubin. Samples from patients who have taken Naproxen have shown spurious elevation in total bilirubin levels. 81 Because ethnic data is not always readily available, this report includes an eGFR for both -Americans and non- Americans. The National Kidney Disease Education Program (NKDEP) does not endorse the use of the MDRD equation for patients that are not between the ages of 18 and 70, are , have extremes of body size, muscle mass, or nutritional status, or are non- or non-. According to the National Kidney Foundation, irrespective of diagnosis, the stage of the disease is based on the level of kidney function: Stage Description GFR(mL/min/1.73 m(2)) 1 Kidney damage with normal or decreased GFR 90 2 Kidney damage with mild decrease in GFR 60-89 3 Moderate decrease in GFR 30-59 4 Severe decrease in GFR 15-29 5 Kidney failure <15 (or dialysis) 82 Test Performed by: [facility] [address] [place] [address] Flux Core Welder: Ty Baird III, M.D. 83 Lymphocytosis % 84 Anion gap measurement may be of limited value in the presence of any alkalosis, especially in a combined acid base disorder. . 85 Note change in reference range as of 01/10/08. The change was based on recommendations from the [place] [employer]. 86 Please note change in reference range effective 07 . 87 A metabolite of Naproxen, O-desmethylnaproxen, has been shown to interfere with the Jendrassik-Porsche method for measuring total bilirubin. Samples from patients who have taken Naproxen have shown spurious elevation in total bilirubin levels. 88 Because ethnic data is not always readily available, this report includes an eGFR for both -Americans and non- Americans. The National Kidney Disease Education Program (NKDEP) does not endorse the use of the MDRD equation for patients that are not between the ages of 18 and 70, are , have extremes of body size, muscle mass, or nutritional status, or are non- or non-. According to the National Kidney Foundation, irrespective of diagnosis, the stage of the disease is based on the level of kidney function: Stage Description GFR(mL/min/1.73 m(2)) 1 Kidney damage with normal or decreased GFR 90 2 Kidney damage with mild decrease in GFR 60-89 3 Moderate decrease in GFR 30-59 4 Severe decrease in GFR 15-29 5 Kidney failure <15 (or dialysis) 89 CHOLESTEROL INTERPRETATION: Desirable: Less than 200 MG/DL Borderline-High Risk: 200-239 MG/DL High-Risk: 240 MG/DL and over 90 HDL INTERPRETATION: Undesirable: High Risk: Less than 40 MG/DL Desirable: Low Risk: Greater than 60 MG/DL 91 LDL INTERPRETATION: Low Risk Optimal Level: LDL Less than 100 MG/DL Near or Above Optimal: LDL 100-129 MG/DL Borderline High Risk: LDL 130-159 MG/DL High Risk: LDL 160-189 MG/DL Very High Risk: LDL Greater than 189 MG/DL 92 PLEASE NOTE NEW REFERENCE RANGES. 93 ---- RUN DATE: 11/25/08 [facility] NMI LIVE PAGE 1 RUN TIME: 1402 Specimen Inquiry RUN USER: INTERFACE -- Name: ERWIN ATKINSON Status: REG REF Re11/24/08 Age/Sex: 73/F Unit#: [id number] Location: RSP : 37 -- Specimen: [id number] SOUT Spec Date: 11/24/[address]: Savannah motley MD Spec Type: CYTOLOGY Received: 11/25/08-0850 Copies to: SOURCE ECTOCERVICAL/ENDOCERVICAL Thin Prep with Reflex HPV Test PATIENT INFORMATION ACTUAL COLLECTION DATE: 11/24/08 POST MENOPAUSAL? Yes DATE OF PRIOR SPECIMEN: 10/25/06 ADEQUACY OF SPECIMEN Satisfactory for evaluation * Transformation zone component cannot be definitely identified due to prese nce * of atrophy or other hormonal changes. * DIAGNOSIS NEGATIVE FOR INTRAEPITHELIAL LESION OR MALIGNANCY * This Pap test was evaluated with the assistance of the FlixpressPrep Pap Test Imaging System. The Pap Smear is a screening test designed to aid in the detection of premalign ant and malignant conditions of the uterine cervix. It is not a diagnostic procedure a nd should not be used as the sole means of detecting cervical cancer. Both false- positiv e and false-negative reports do occur. Depending on your risk status, a Pap smear mat uld be obtained and evaluated every one to three years. Initial evaluation performed by Curry UGALDE(ASCP) 11/25/08 Final Interpretation electronically signed by: Curry UGALDE(ASCP) 11/25/08 1401 -- -- DEPARTMENT OF PATHOLOGY, [address] [place] [address] [facility] Permit #[id number] Melisa Swanson M.D. Aircraft Electrician Dir chiki -- 94 ---- RUN DATE: 04/22/08 [facility] NMI LIVE PAGE 1 RUN TIME: 1429 Specimen Inquiry RUN USER: INTERFACE -- Name: ERWIN ATKINSON#: [id number] Status: REG REF Re04/21/08 Age/Sex: 72/F Unit#: [id number] Location: END : 37 -- Specimen: [id number] SOUT Spec Date: 04/21/[address]: Иван zaidi MD Spec Type: SURGICAL P Received: 04/21/08-1432 Copies to: Savannah vora MD SPECIMEN BIOPSY CECUM POLYP HISTORY CLINICAL INFORMATION: History of polyps 2004; asymptomatic GROSS DESCRIPTION The specimen is received in formalin labelled Erwin JoeyRosalinda Atkinson, Colon Polyp, and consists of a payne, soft tissue fragment measuring 0.3 x 0.2 x 0.1 cm. Submitted entirely, one cassette. DIAGNOSIS Colon, cecum, biopsy: Hyperplastic change. Signed Electronically by: GERARDO COLES MD 04/22/08 1428 -- -- DEPARTMENT OF PATHOLOGY, [address] [place] [id number] [facility] Permit #[id number] Gerardo Coles M.D. Director Brittany Kenney M.D. Aircraft Electrician Dir chiki -- 95 Anion gap measurement may be of limited value in the presence of any alkalosis, especially in a combined acid base disorder. . 96 Please note change in reference range effective 07 . 97 NORMAL ELECTROPHORETIC PATTERN. 98 -- REFERENCE VALUE -- 25-HYDROXY D TOTAL (D2+D3) Optimum levels in the normal population are 25-80 Test Performed by: [facility] Pathology [address] [place] [address] [employer] Welder: Ty Baird III, M.D. 99 ---- RUN DATE: 10/30/06 [facility] NMI LIVE PAGE 1 RUN TIME: 1406 Specimen Inquiry RUN USER: INTERFACE [id number] ERWIN ATKINSON 71/F <REG REF 10/25> ([id number]) Doreen Lockwood MD -- Specimen: [id number] JUDY Spec Date: 10/25/[address]: Savannah motley MD Spec Type: CYTOLOGY Received: 10/27/06-922 Copies to: SOURCE ECTOCERVICAL/ENDOCERVICAL Thin Prep with Reflex HPV Test PATIENT INFORMATION ACTUAL COLLECTION DATE: 10/25/06 ADEQUACY OF SPECIMEN Satisfactory for evaluation * Transformation zone component cannot be definitely identified due to prese nce * of atrophy or other hormonal changes. * DIAGNOSIS NEGATIVE FOR INTRAEPITHELIAL LESION OR MALIGNANCY * This Pap test was evaluated with the assistance of the FlixpressPrep Pap Test Imaging System. The Pap Smear is a screening test designed to aid in the detection of premalign ant and malignant conditions of the uterine cervix. It is not a diagnostic procedure a nd should not be used as the sole means of detecting cervical cancer. Both false- positive and false-negative reports do occur. Depending on your risk status, a Pap smear mat uld be obtained and evaluated every one to three years. Final Interpretation electronically signed by: Mario TAVERA(ASCP) 10/30/06 140 6 -- -- DEPARTMENT OF PATHOLOGY, [address] [place] [address] [facility] Permit #[id number] Torey Murillo II, M.D. Director Gerardo Coles M.D. Aircraft Electrician D irector -- 100 Anion gap measurement may be of limited value in the presence of any alkalosis, especially in a combined acid base disorder. . 101 EAR WAX PLUG LEFT EAR 102 [MOLD]- ID TO FOLLOW UNDER SEPARATE REPORT NO ADDITIONAL GROWTH AFTER 3 WEEKS MOLD 103 EAR WAX PLUG LEFT EAR BLACK/WHITE MOLD EAR WAX PLUG LEFT EAR 104 [MOLD]- ID TO FOLLOW UNDER SEPARATE REPORT NO ADDITIONAL GROWTH AFTER 2 WEEKS MOLD 105 [ASPERGILLUS NIGER] Test performed by: [facility] [address] [place] [id number] CLIA#[id number] ASPERGILLUS NIGER 106 Classification: High . 107 Classification: High . 108 CALCULATED LDL APPROXIMATES THE VALUE OF A DIRECT LDL MEASUREMENT. Classification: High . 109 Anion gap measurement may be of limited value in the presence of any alkalosis, especially in a combined acid base disorder. . 110 Anion gap measurement may be of limited value in the presence of any alkalosis, especially in a combined acid base disorder. . 111 Classification: Desirable . 112 Classification: High . 113 CALCULATED LDL APPROXIMATES THE VALUE OF A DIRECT LDL MEASUREMENT. Classification: Near or above optimal . Procedures Date CPT Code Description Status Comment 05/22/2013 Colonoscopy Completed Johnson- Negative except 4 mm polyp- ? path- recommended repeat at 2019. April of 2008, - DR. WELLINGTON- HYPERPLASTIC POLYP CECUM- REPEAT BY 2012- Rectal polyp 02/23.` 05/02/2012 3 Chge-Back Previously Adj Completed Charges 11/02/2005 61889 EKG, at Least 12 Leads Completed w/Interpretation and Report Encounters Type Date Location Provider CPT E/M Dx Office Visit 12/27/2016 2:15p Main Office Savannah Egan M.D. 69714 R42 M79.602 M25.559 R10.9 Office Visit 10/31/2016 11:00a Main Office Savannah Egan M.D. 52761 M54.5 M54.2 M25.559 Office Visit 07/13/2016 11:15a Main Office Savannah Egan M.D. 33740 E78.00 M85.9 Z23 Office Visit 05/27/2016 3:30p Main Office Lesly Winterlisa [facility] 84489 M94.0 Office Visit 04/11/2016 9:30a Main Office Savannah Egan M.D. 75431 Z00.01 E78.00 R27.0 E07.9 Z91.030 M85.9 Z12.31 R10.31 E16.2 Z23 Office Visit 03/02/2016 10:15a Main Office Savannah Egan M.D. 85008 R10.9 R53.83 R27.0 Office Visit 02/02/2016 1:45p Main Office Savannah Egan M.D. 10653 K29.00 Office Visit 12/22/2015 3:15p Main Office Savannah Egan M.D. 24082 R10.9 Office Visit 11/24/2015 2:30p Main Office Savannah Egan M.D. 96775 R10.9 R26.89 R63.4 M48.06 K59.00 M79.642 Office Visit 11/02/2015 11:15a [place] [address] M25.562 Office Visit 04/07/2015 1:00p Main Office Savannah Egan M.D. G0439 Z00.01 R42 Z91.030 E07.9 E78.0 M85.9 Z12.31 Office Visit 02/18/2015 11:45a Main Office Savannah Egan M.D. 99662 R42 H91.90 Office Visit 02/06/2015 11:00a [place] [address] Z91.030 R42 Office Visit 12/10/2014 10:45a Main Office SRIRAM Dwyer 63757 709.9 Office Visit 12/05/2014 2:45p Main Office SRIRAM Dwyer 51146 709.9 Office Visit 12/01/2014 4:45p Main Office SRIRAM Dwyer 32862 709.9 Office Visit 07/23/2014 11:15a Main Office Savannah Egan M.D. 14356 782.1 Office Visit 07/02/2014 10:30a Main Office Savannah Egan M.D. 19988 780.4 477.9 Office Visit 06/25/2014 11:00a Main Office Guanako Davidson M.D. 03891 780.4 Office Visit 12/30/2013 10:15a Main Office Savannah Egan M.D. G0439 V70.0 246.9 272.0 733.90 620.2 355.1 289.89 Office Visit 12/26/2012 10:15a Main Office Savannah Egan M.D. G0439 V70.0 246.9 272.0 733.90 719.46 787.1 289.89 Office Visit 10/11/2012 12:00p Main Office Savannah Egan M.D. 48049 719.45 719.46 Office Visit 12/26/2011 10:15a Main Office Savannah Egan M.D. G0439 V70.0 789.00 246.9 272.0 780.4 V76.51 Office Visit 02/03/2011 12:00p Main Office Savannah gEan M.D. 25705 733.90 246.9 780.4 272.0 599.70 Office Visit 01/03/2011 10:15a Main Office Savannah Egan M.D. G0438 V70.0 733.90 733.90 246.9 246.9 289.89 780.4 272.0 173.3 599.70 Office Visit 08/13/2010 10:30a Main Office SRIRAM Richardson 80926 465.9 Office Visit 08/03/2010 4:30p Main Office MELODIE RichardsonPLion 05586 465.9 Office Visit 11/30/2009 10:15a Main Office Savannah Egan M.D. 34573 V72.31 733.90 246.9 289.89 V19.8 790.6 719.46 Office Visit 01/03/2009 9:15a Main Office Mariam De Leon M.D. 35075 780.4 Office Visit 11/24/2008 10:15a Main Office Savannah Egan M.D. 89180 V72.31 709.9 780.4 272.0 733.90 V76.9 Office Visit 09/05/2008 1:45p Main Office SRIRAM Richardson 49294 465.9 Office Visit 01/03/2008 12:30p Main Office Savannah Egan M.D. 55650 709.9 Office Visit 11/12/2007 10:15a Main Office Savannah Egan M.D. 02061 V72.31 790.6 782.0 733.90 211.3 Office Visit 10/25/2006 12:30p Main Office Savannah Egan M.D. 17205 733.90 790.6 780.79 272.0 719.45 112.82 V72.31 Office Visit 09/22/2006 10:45a Main Office Isadora Portillo [facility] 02633 112.82 Office Visit 09/13/2006 1:45p Main Office Isadora Portillo [facility] 27661 382.9 Office Visit 11/02/2005 9:45a Main Office Savannah Egan M.D. 67677 272.0 719.45 790.6 733.90 Office Visit 08/02/2005 3:15p Main Office Savannah Egan M.D. 47616 272.0 719.45 724.2 350.2 Office Visit 04/11/2005 10:45a Main Office Savannah Egan M.D. 30608 719.45 724.2 272.0 709.8 V04.81 Office Visit 01/10/2005 12:00p Main Office Savannah Egan M.D. 55038 719.45 724.2 Plan of Care Future Appointment(s):08/08/2017 1:00 pm - Savannah Egan M.D. at Main [id number]/10/2017 - Savannah Egan M.D.Z00.01 Encounter for general adult medical exam w abnormal findingsComments:HEALTH MAINTENANCE REMINDERS DISCUSSED. EMPHASIZED HEALTHY EATING, EXERCISE. DISCUSSED MONTHLY BSE, MAMMOGRAM RECOMMENDED YEARLY DUE TO FAM HX. PT AGREES. PT AGREES TO FLU VACCINE (WANTS REGULAR DOSE), DECLINES PNEUMOCOCCAL VACCINES AND SHINGLES VACCINE.Follow up:.Recommendations:-- REMINDER TO SEE TOOLING SUPERVISOR- LET ME KNOW IF YOU WANT TO SEE DR. JOSE L RODRÍGUEZ -- GET YOUR MAMMOGRAM -- GET YOUR FLU VACCINE EVERY YEAR IN THE FALL -- YOU ARE DUE FOR YOUR COLONOSCOPY IN 9769Z17.00 Pure hypercholesterolemia, unspecifiedComments:AGAIN DISCUSSED CV RISK SCORE. DECLINES LIPID-LOWERING MEDICATION, SHE'LL TAKE HER CHANCES. WILL REPEAT LIPID TODAY- NOT FASTING- HAD CEREAL TODAY AND BANANA. DISCUSSED FIBER IN DIET, TRY ADDING IN GROUND FLAXSEED, MAY HELP WITH BOWEL CONSISTENCY WELL.Follow up:. -- EMRecommendations:-- TRY ADDING GROUND FLAXSEED 1 TEASPOON UP TO 2 TABLESPOONS PER DAYM85.9 Disorder of bone density and structure, unspecifiedComments:DISCUSSED DEXA OSTEOPENIA, ENCOURAGED CALCIUM IN DIET + SUPPLEMENT IF NEEDED QD ABOVE. CONTINUE VITAMIN D SUPPLEMENT.Follow up: .Recommendations:-- STAY ON THE CALCIUM SUPPLEMENT ONCE PER DAY(CALCIUM CITRATE IS PREFERRED) ONCE PER DAY AND CALCIUM IN YOUR DIET-- MAKE SURE TO GET AT LEAST 2-3 SERVINGS CALCIUM IN YOUR DIET DAILY- YOGURT, MILK, ALMOND MILK, GREEN- LEAFY VEGETABLES, ETC -- CONTINUE THE VITAMIN D IN YOUR CALCIUM AND YOUR MULTIPLE VITAMIN -- AIM OR TOTAL VITAMIN D3 0937-3447 IU PER DAY -- GET IN WALKING, WEIGHT-BEARING EXERCISE LIKE YOUR LAUREN CHI AND YOGA- THAT'S GREAT! E07.9 Disorder of thyroid, unspecifiedFollow up:.Recommendations:-- YOUR THYROID FUNCTION BLOODWORK HAS BEEN FINEZ91.030 Bee allergy statusFollow up: .Recommendations:-- MAKE SURE TO KEEP EPIPEN ON HAND AND CALL 911 IF YOU NEED TO USE IT -- LET ME KNOW WHEN YOU WANT RX SENT TO [facility]- I SENT ONE TO [place] JUST IN CASE AND TOLD THEM TO WAIT TO FILL UNTIL YOU CALL THEME16.2 Hypoglycemia , unspecifiedFollow up:.Recommendations:-- YOU TEND TO GET LOW BLOOD SUGARS AT TIMES -- MAKE SURE TO EAT EVERY 2-3 HOURS DURING THE DAY- PROTEIN IS IMPORTANT TO KEEP YOUR SUGARS STABLE FOR LONGER (4 HOURS) THAN CARBS (1-2 HOURS)- PEANUT BUTTER, NUTS SUCH ALMONDS PECANS AND WALNUTS, YOGURT, CHEESE -- WE RECHECKED YOUR DIABETES TEST CHXFKC44.9 Unspecified abdominal painComments: CHRONIC ISSUES WITH INTERMITTENT ABDOMINAL BLOATING AND GAS. HAS HAD NEGATIVE GI EVAL. HAS NOT TRIEDPROBIOTIC- DISCUSSED TRIAL PROBIOTIC. ALSO DISCUSSED FLAXSEED, MAGNESIUM.Follow up:. F/U JULY- MIN -- EMRecommendations:-- TRY TAKING A PROBIOTIC- SUCH ALIGN- EVERY DAY FOR 1-2 MONTHS -- YOU CAN TAKE MAGNESIUM SUPPLEMENT TO HELP WITH YOUR BOWELS- CAN CAUSE LOOSE STOOLS- 200-250 MG UP TO 500 MG PER DAYR10.814 Left lower quadrant abdominal tendernessComments: GETS VERY MILD INTERMITTENT LLQ DISCOMFORT, ONLY A FEW TIMES PER YEAR. MAY BE DUE TO PELVIC CONGESTION BUT PT WOULD NOT LIKE TREATMENT. NOT TOO BOTHERSOME. OVARY ON LEFT NOT VISUALIZED LAST YEAR, WILL CHECK ALVINO TV SONO TO SEE IF CAN VISUALIZE OVARY.Follow up:-- TRANSVAGINAL SONOGRAM -- EMRecommendations:-- REPEAT THE TRANSVAGINAL ULTRASOUND TO EVALUATE YOUR LEFT BFIVFE81.31 Encntr screen mammogram for malignant neoplasm of breastComments:MAMMOGRAM YEARLY DUE TO FAM HX.Follow up:. -- MAMMOGRAM IN MAYRecommendations:-- GET YOUR MAMMOGRAM IN VMLZONGK78.5 Low back painComments:PT DECLINES MRI RECOMMENDED BY DR. HAWK, DOING BETTER, SHE WILL F/U WITH DR. HAWK IN MAY.Follow up:.Recommendations:-- FOLLOW-UP WITH DR. HAWK SCHEDULED IN MAY -- TRY TO MINIMIZE TYLENOL USE- IT IS OK TO USE UP TO 2000 MG OR LESS PER DAY-- TRY GETTING THE REGULAR STRENGTH TYLENOL 325 MG AND TRY TAKING 2 ONCE TO TWICE PER DAY [id number] Neoplasm of uncertain behavior of skinFollow up:. -- refer to Dr. Rodríguez for full skin eval, actinic keratoses, history of basal cell cancer, atypical lesion left hooper -- EMRecommendations:-- SEE DR. RODRÍGUEZ FOR DERMATOLOGY CONSULT- FIFI THOSE SPOTS AT YOUR LEFT NECK AND LEFT HOOPER BUT FULLSKIN CHECK
--- NOTE | 2017-04-21 19:42 | HP ---
CC: Dr. Egan; Dr. Mitchell; Dr. Tomas; Dr. Randhawa REHABILITATION ADMISSION: DATE OF ADMISSION: 04/21/17 PRIMARY CARE PROVIDER: Dr. Egan. ORTHOPEDIC SURGEON: Dr. Mitchell. ONCOLOGIST: Dr. Tomas. CHEMICAL OPERATOR: Dr. Randhawa. REASON FOR ADMISSION: Left femur fracture and left lung mass. HISTORY OF PRESENT ILLNESS: This is a 81-year-old woman who on 04/18/17 very early in the morning rolled over in bed and noted that her left leg snapped. She had too much pain to mobilize and ultimately was brought to the hospital where she was diagnosed with a left nondisplaced mid shaft femur fracture that had some adjacent hematoma. Noted was some irregularity and lucency within the cortex at the level of the fracture and underlying pathologic fracture should be considered. Upon admission, chest x-ray revealed a left upper lobe mass that was new since a prior x- ray in 2010. She had reported dry cough for about a month. She was taken to the OR by Dr. Mitchell on 04/18/17 where she had left femur ORIF with IM nailing. She has 50% weightbearing precautions. There was no tissue gathered for pathologic analysis at that time. She was put in a knee immobilizer for transfers and ambulation and allowed to remove it for rest. CT of the chest, abdomen, and pelvis only revealed a left upper lung mass. She was seen by Dr. Tomas and later by Dr. Randhawa. Dr. Randhawa cannot see her for bronchoscopy until Monday, and as an outpatient she should ultimately have PET scan and bone scans. She did have an ultrasound-guided biopsy by Dr. Rodriguez on 04/20 and results of that are pending. She has been on DVT prophylaxis with subcutaneous heparin 5000 units q.8 hours. It is unclear what she should be on ultimately for discharge to home. Further treatment for the mass is pending biopsy results. Prior to admission, she was independent with all mobility and ADLs. With Occupational Therapy, she has required a total amount of assistance for lower body dressing, maximum assistance for bathing, and total assistance for toileting. With Physical Therapy, she required a minimal assistance for bed mobility. She required contact guard assistance for transferring and was able to ambulate 4 feet using a rolling walker and maintaining weight bearing precautions. PAST MEDICAL HISTORY: Osteopenia, arthritis, and left lung mass, see history of present illness. MEDICATIONS: 1. Tylenol p.r.n. 2. Colace 100 mg b.i.d. p.r.n. 3. Heparin 5000 units subcutaneously q.8 hours for DVT prophylaxis. 4. Percocet one p.o. q.4 hours p.r.n. pain. 5. Senna two tablets p.o. q.p.m. 6. Tramadol 50 mg q.6 hours p.r.n. breakthrough pain. ALLERGIES: AMOXICILLIN, CLAVULANATE, METRONIDAZOLE, and AZITHROMYCIN. FAMILY HISTORY: Her mother had gastric cancer. SOCIAL HISTORY: She lives alone in a home that has two levels. She plans to stay with her friend who has a one level home at the time of discharge. The house has two bedrooms and two bathrooms. One of the bathrooms is large with a walk-in tub. If she needs to hire physical assistance for discharge she has the resources to do that. No smoking. She has half a cup of wine per day. If she cannot make decisions for herself, her son and daughter are her healthcare proxies. Her daughter is Augustus Dickinson, phone number [phone]. REVIEW OF SYSTEMS: See history of present illness and past medical history. She has had normal bowel movements and has been urinating in the commode. She denies any chest pain or shortness of breath. Dealing pain is at the fracture site in her left leg. The remainder of the 13-system review was completed. No significant findings. PHYSICAL EXAMINATION GENERAL: Well-developed, well-nourished, appearing stated age. VITAL SIGNS: Temperature 99.3, heart rate 91, respirations 16, oxygenation 98% on room air, blood pressure 128/34. LUNGS: Clear to auscultation bilaterally. HEART: Regular rate and rhythm. ABDOMEN: Active bowel sounds. Soft, nontender, and nondistended. EXTREMITIES: No clubbing, cyanosis, or edema. She has sutures over her left knee that are clean, dry, and intact. 2+ peripheral pulses. NEUROLOGICAL EXAM: Cranial nerves II through XII are intact. Motor testing shows 5/5 strength in bilateral upper and lower extremities with normal sensation, but limited motor testing of the left hip and knee secondary to the fracture and being in a knee immobilizer. MENTAL STATUS: No acute distress. Alert and oriented x3, although she appears a bit forgetful in conversation. LABORATORY DATA: On 04/19, white blood cell 7.5, hemoglobin 11.7, hematocrit 35, platelets 165. Sodium 133, potassium 4.1, BUN 8, creatinine 0.57. IMPRESSION: A 81-year-old woman with left mid shaft femur fracture likely pathologic and new left lung mass, awaiting biopsy results. She will be admitted to [facility], so she can return to living independently, but at her friend' s home that is one level. PLAN: 1. Left femur fracture. Continue with 50% weightbearing and knee immobilizer for transfers and ambulation. She is to follow up with Dr. Mitchell. 2. Left lung mass. Await pathology results from ultrasound-guided biopsy on . Follow up with Dr. Randhawa and Oncology as needed. I believe she is scheduled for bronchoscopy with Dr. Randhawa on Monday, 04/26 and she may need some preprocedure orders. Also mentioned in notes have been in the future PET and bone scans. 3. DVT prophylaxis. Continue subcutaneous heparin for now until she is completed with procedures and then discuss with Hematology/Oncology a better plan for her DVT prophylaxis that she can continue easily at home. 4. Impaired mobility. She will be seen by Physical Therapy for bed mobility, transfer, and gait training using a rolling walker. 5. Impaired self-care. She will be seen by Occupational Therapy for ADL training and equipment evaluation. She will need to learn how to manage the knee immobilizer. 6. Questionable impaired cognition with some forgetfulness. I will ask Speech Therapy to cognitive evaluation on her. 7. Advanced directives. For now, she desires a full code. She has a living will at home that is not here in the hospital. She may revisit her code status , pending the biopsy results. Her healthcare proxies are her son and daughter if she cannot make decisions for herself. 8. Estimated length of stay is 7 to 10 days and return to her friend's home with home services and possibly embossing machine operator helper as needed. [id number]/[facility] #: [id number] MTDD
[2017-04-21] MEDS: oxyCODONE/Acetamin 5/325 MG* TAB PO PRN (20:56)
[2017-04-21] MEDS: Docusate CAP* 100 MG PO SCH (20:57)
[2017-04-22] MEDS: oxyCODONE/Acetamin 5/325 MG* TAB PO PRN ×3 (02:55→21:32)
--- NOTE | 2017-04-22 09:02 | PN ---
Progress Note - Progress Note Date of Service: 04/22/17 Note: Nursing notes reviewed. Therapy initial evaluations are in progress. No chest pain, shortness or breath or abdominal pain. She thinks it continues to get easier to move each time. I reviewed Dr. Randhawa's note from 04/21/[address] Paiz's discharge summary. +BM. Acetaminophen (Tylenol Tab*) 650 mg PO Q6H PRN PRN Reason: FEVER > 101 Al Hydrox/Mg Hydrox/Simethicone (Maalox Plus*) 30 ml PO Q6H PRN PRN Reason: INDIGESTION Bisacodyl (Dulcolax Supp*) 10 mg ME DAILY PRN PRN Reason: CONSTIPATION Docusate Sodium (Colace Cap*) 100 mg PO BID PRN PRN Reason: CONSTIPATION Heparin Sodium (Porcine) (Heparin Vial(*)) 5,000 units SUBCUT 0000,0800,1600 [facility] Last Admin: 04/22/17 10:00 Dose: 5,000 units Magnesium Hydroxide (Milk Of Magnesia Liq*) 30 ml PO Q6H PRN PRN Reason: CONSTIPATION Magnesium Oxide (Magox 400 Tab*) 500 mg PO DAILY ZEFERINO PRN Reason: Protocol Non-Formulary Medication (Calcium Citrate With Vit D) 1 tab PO DAILY [facility] Non-Formulary Medication (Senior Multivitamin With Oil Inspector) 1 tab PO DAILY [facility] Oxycodone/Acetaminophen (Percocet 5/325 Tab*) 1 tab PO Q4H PRN PRN Reason: PAIN Last Admin: 04/22/17 09:58 Dose: 1 tab Senna (Senokot Tab*) 2 tab PO BEDTIME PRN PRN Reason: CONSTIPATION Tramadol HCl (Ultram*) 50 mg PO Q6H PRN PRN Reason: breakthrough pain Vital Signs 04/21/17 04/21/17 04/21/17 15:15 15:17 15:51 Temperature 98.4 F 98.4 F Pulse Rate 87 85 85 Respiratory 16 16 Rate Blood Pressure 104/47 104/47 (mmHg) O2 Sat by Pulse 96 97 97 Oximetry 04/21/17 04/21/17 04/21/17 20:00 20:56 21:05 Temperature Pulse Rate Respiratory 18 18 18 Rate Blood Pressure (mmHg) O2 Sat by Pulse Oximetry 04/21/17 04/21/17 04/21/17 21:06 22:55 23:41 Temperature 98.9 F Pulse Rate 76 Respiratory 16 18 Rate Blood Pressure 100/49 (mmHg) O2 Sat by Pulse 97 97 Oximetry 04/21/17 04/22/17 04/22/17 23:50 02:55 04:50 Temperature Pulse Rate Respiratory 18 16 Rate Blood Pressure (mmHg) O2 Sat by Pulse 97 Oximetry 04/22/17 04/22/17 06:20 09:58 Temperature 99.1 F Pulse Rate 73 Respiratory 18 18 Rate Blood Pressure 113/52 (mmHg) O2 Sat by Pulse 98 Oximetry PE: Gen: no acute distress. Alert and appropriate. Lungs: clear to auscultation bilaterally. CV: regular rate and rhythm. Abd: +bs, soft, non-tender, non-distended. Ext: no edema. Left knee immobilizer on. Laboratory Results - last 24 hr 04/22/17 04/22/17 09:34 09:34 WBC 6.1 RBC 3.51 L Hgb 11.7 L Hct 34 L MCV 98 H MCH 33 H MCHC 34 RDW 13 Plt Count 198 MPV 7 L Neut % (Auto) 59.8 Lymph % (Auto) 27.6 [place] % (Auto) 7.6 Eos % (Auto) 4.3 Baso % (Auto) 0.7 Absolute Neuts (auto) 3.7 Absolute Lymphs (auto) 1.7 Absolute Monos (auto) 0.5 Absolute Eos (auto) 0.3 Absolute Basos (auto) 0 Absolute Nucleated RBC 0 Nucleated RBC % 0 Sodium 137 Potassium 3.6 Chloride 104 Carbon Dioxide 27 Anion Gap 6 BUN 11 Creatinine 0.64 Est GFR ( Amer) 115.1 Est GFR (Non-Af Amer) 89.5 BUN/Creatinine Ratio 17.2 Glucose 165 H Calcium 8.7 Total Bilirubin 0.50 AST 28 ALT 19 Alkaline Phosphatase 58 Total Protein 5.8 L Albumin 3.2 Globulin 2.6 Albumin/Globulin Ratio 1.2 IMPRESSION: A 81-year-old woman with left mid shaft femur fracture, likely pathologic, and new left lung mass, awaiting biopsy results. PLAN: 1. Left femur fracture. Continue with 50% weightbearing and knee immobilizer for transfers and ambulation. She is to follow up with Dr. Mitchell. 2. Left lung mass. Await pathology results from ultrasound-guided biopsy on . Follow up with Dr. Randhawa and Oncology/Dr. Tomas for staging if confirmed carcinoma. Scheduled for bronchoscopy with Dr. Randhawa on Monday, unless metastatic disease is confirmed another way before this (PET or bone scan). 3. DVT prophylaxis. Continue subcutaneous heparin for now until she is completed with procedures and then discuss with Hematology/Oncology a better plan for her DVT prophylaxis that she can continue easily at home. 4. Impaired mobility. She will be seen by Physical Therapy for bed mobility, transfer, and gait training using a rolling walker. 5. Impaired self-care. She will be seen by Occupational Therapy for ADL training and equipment evaluation. She will need to learn how to manage the knee immobilizer. 6. Questionable impaired cognition with some forgetfulness. Speech Therapy to do cognitive evaluation on her Monday. 7. Advanced directives. For now, she desires a full code. She has a living will at home that is not here in the hospital. She may revisit her code status , pending the biopsy results. Her healthcare proxies are her son and daughter if she cannot make decisions for herself. 8. Estimated length of stay. Interdisciplinary plan of care meeting today.
[2017-04-22 09:47] LABS: Hematocrit 34 % (35-47); Hemoglobin 11.7 g/dl (12.0-16.0); Mean Corpuscular HGB Conc 34 g/dl (31-36); Mean Corpuscular Hemoglobin 33 pg (27-31); Mean Corpuscular Volume 98 fL (80-97); Mean Platelet Volume 7 um3 (7.4-10.4); Red Blood Count 3.51 10^6/ul (4.0-5.4); Red Cell Distribution Width 13 % (10.5-15); White Blood Count 6.1 10^3/ul (3.5-10.8)
[2017-04-22] MEDS: Heparin VIAL(*) 5000 UNITS/ML VIAL (FIVE THOUSAND) SUBCUT SCH ×2 (10:00→15:58)
[2017-04-22 10:09] LABS: Albumin 3.2 g/dL (3.2-5.2); BUN/Creatinine Ratio 17.2 (8-20); Calcium 8.7 mg/dL (8.6-10.3); EGFR African American 115.1 (>60); EGFR Non-African American 89.5 (>60); Globulin 2.6 g/dL (2-4); Potassium 3.6 mmol/L (3.5-5.0); Total Bilirubin 0.5 mg/dL (0.2-1.0); Total Protein 5.8 g/dL (6.4-8.9)
[2017-04-22] MEDS: Docusate CAP* 100 MG PO SCH (10:31)
[2017-04-22] MEDS: traMADol TAB* 50 MG PO PRN (11:54)
[2017-04-22] MEDS: Magnesium Oxide TAB* 400 MG PO SCH (14:08)
[2017-04-22] MEDS: Multivitamins/Minerals TAB PO SCH (14:08)
[2017-04-22] MEDS: Calcium/Vitamin D TAB 250/125* TAB PO SCH (14:08)
--- NOTE | 2017-04-22 19:30 | PMRUTEAM ---
PMRU: Goals Current Status: Nursing: Current Status Skin Deviations [Left Leg] Incision Skin Deviations [Left Neck] Abrasion Skin Deviation Description [ knee immobilizer on, cryo unit on Left Leg] Skin Deviation Description [ previous biopsy, scabed Left Neck] Physical Therapy: Current Status Bed Mobility Assistance Mod Assist Transfer Moblility Assistance Contact Guard Assist Transfer/Bed Mobility Rolling Walker Recommended Devices Ambulation Assistance Contact Guard Assist Ambulation Assistive Devices Rolling Walker Number of Feet Patient 20 Ambulated Stairs Assistance not tested Stairs Recommended Devices Two Rails Number of Stairs 3 Occupational Therapy: Current Status Upper Body Dressing Supervision Lower Body Dressing Max Asst Bathing Mod Assist Toileting Mod Assist Toilet Transfer Contact Guard Assist Eating Independent Social Work: Current Status Discharge Plan return to the community and stay with a friend and receive home care svs as needed Potential for Family Training TBD Anticipated Discharge Home Destination Discharge With VNS and support from friends Goals: Physical Therapy: Initial Goals Bed Mobility Assistance Independent Transfer Mobility Assistance Independent Transfer/Bed Mobility Rolling Walker Recommended Devices Ambulation Independent Ambulation Recommended Devices Rolling Walker Ambulation Distance 150 Occupational Therapy: Initial Goals Goals to be Completed in (Days 7-10 ) Upper Body Bathing Routine Independent Lower Body Bathing Routine Modified Independent with Upper Body Dressing Routine Independent Lower Body Dressing Routine Modified Independent with Toilet Hygeine and Clothing Modified Independent with Management Routine Toilet Transfer Routine Modified Independent with Step-In Shower Transfer Supervision/Set Up Routine Functional Transfers for ADL Modified Independent with Grooming Routine Independent Feeding Routine Independent Social Work: Goals Discharge Plan return to the community and stay with a friend and receive home care svs as needed Potential for Family Training TBD Anticipated Discharge Home Destination Discharge With VNS and support from friends Care Plan: Care Plan ADL's - Improve/Maintain Start: 04/21/17 21:28 Freq: QSHIFT Status: Active Target: Protocol: Activity Type Activity Date Activity User E-Sign Co-Sign Detail Recorded Client Recorded Date Recorded By Document 04/22/17 11:08 [id number] 04/22/17 11:09 [id number] 04/22/17 11:08 PMRU Outcome: ADL's/ADL Transfers Orders/Interventions Occupational Therapy Evaluation & Treatment Communication Tool in Patient Room Device No Patient to receive OT 5x/wk for 60-120 Therex min/day Self Care Management Group Therapy UE/LE ADL's with Assist Yes: mod I ADL Transfers with Assist Yes: mod I Toileting: Transfers,Clothing Management Yes: mod I ,Hygeine w/Assist Light Kitchen/Laundry w/Assist No Progression Toward Outcome/Goals Progressing Coping/Psych-Improve/Maintain Start: 04/21/17 21:28 Freq: QSHIFT Status: Active Target: Protocol: Activity Type Activity Date Activity User E-Sign Co-Sign Detail Recorded Client Recorded Date Recorded By Document 04/22/17 14:36 [id number] 04/22/17 14:36 [id number] 04/22/17 14:36 PMRU Outcome: Coping/Psychosocial Coping Outcome/Goals Verbalization of Acceptance of Rehab Admit Utilization of Appropriate Problem Solving Techniques Willingness to Participate in Treatment Plan and Basic Needs Utilization of Available Support Systems Psychosocial Outcome/Goals Maintain/ Improve Emotional Health Demonstrates Knowledge of Healthy Coping Mechanisms Available Cooperate/ Participate in Plan Progression Toward Outcome/Goals - Progressing Coping Progression Toward Outcome/Goals - Progressing Psychosocial Discharge Planning - Improve/Maintain Start: 04/21/17 21:28 Freq: QSHIFT Status: Active Target: Protocol: Activity Type Activity Date Activity User E-Sign Co-Sign Detail Recorded Client Recorded Date Recorded By Document 04/22/17 14:36 [id number] [email or web address] 04/22/17 14:36 [id number] 04/22/17 14:36 PMRU Outcome: Discharge Planning Identify Patient Needs yes Update Patient Family No Outcome/Goals Demonstrates Understanding of Discharge Plan Homecare Referral - See Comment Progression Toward Outcome/Goals Progressing Education-Improve/Maintain Start: 04/21/17 21:28 Freq: QSHIFT Status: Active Target: Protocol: Activity Type Activity Date Activity User E-Sign Co-Sign Detail Recorded Client Recorded Date Recorded By Document 04/22/17 14:36 [id number] 04/22/17 14:36 [id number] 04/22/17 14:36 PMRU Outcome: Education Outcome/Goals Demonstrate/ Verbalize Understanding of Written Discharge Instructions Demonstrates Skills Encourage Questions Progression Toward Outcome/Goals Progressing Mobility- Improve/Maintain Start: 04/21/17 21:28 Freq: QSHIFT Status: Active Target: Protocol: Activity Type Activity Date Activity User E-Sign Co-Sign Detail Recorded Client Recorded Date Recorded By Document 04/22/17 15:10 [id number] 04/22/17 15:11 [id number] 04/22/17 15:10 PMRU Outcome: Mobility Physical Therapy Evaluation and Yes Treatment Activity OOB with Assistance Yes Device Yes Assistance Yes Patient to be seen 5x/wk for 60-120 min/ Therex day for: Mobility Training Gait Training Balance Outcome/Goals Maintain/ Achieve Baseline Mobility Status Improve Mobility Status Demonstrates Proper Use of Assistive Devices Free from Complications of Immobility Bed Mobility Yes: independent Transfers Yes: independent with rolling walker. Gait x ft independent with rolling walker 150' Pain/Comfort- Improve/Maintain Start: 04/21/17 21:28 Freq: QSHIFT Status: Active Target: Protocol: Activity Type Activity Date Activity User E-Sign Co-Sign Detail Recorded Client Recorded Date Recorded By Document 04/22/17 14:36 [id number] 04/22/17 14:36 [id number] 04/22/17 14:36 PMRU Outcome: Pain/Comfort Outcome/Goals Demonstrates Knowledge and Use of Available Comfort Measures Achieves Acceptable Comfort/Pain Level as Determined by Patient/Condit Maintain Comfort Level Allowing Patient to Fully Participate in Rehab Progression Toward Outcome/Goals Progressing Outcome/Goals Met Comment Cryo unit in place Safety- Improve/Maintain Start: 04/21/17 21:28 Freq: QSHIFT Status: Active Target: Protocol: Activity Type Activity Date Activity User E-Sign Co-Sign Detail Recorded Client Recorded Date Recorded By Document 04/22/17 14:36 [id number] 04/22/17 14:36 [id number] 04/22/17 14:36 PMRU Outcome: Safety Outcome/Goals Remain Free of Injury or Harm Prevent Falls/ Injury Progression Toward Outcome/Goals Progressing Skin- Improve/Maintain Start: 04/21/17 21:28 Freq: QSHIFT Status: Active Target: Protocol: Activity Type Activity Date Activity User E-Sign Co-Sign Detail Recorded Client Recorded Date Recorded By Document 04/22/17 14:36 [id number] 04/22/17 14:36 [id number] 04/22/17 14:36 PMRU Outcome: Skin Skin Risk Level Medium Skin Orders Dressing Change Heels Off Bed Outcome/Goals Maintain/ Improve Skin Intergrity Surgical Incisions Healing Progression Toward Outcome/Goals Progressing Medicine Note: Length of Stay: [10 days] Anticipated Discharge Destination: [facility] Tentative Discharge Date: [05/02/17] Discharged to: [[facility]]
[2017-04-23] MEDS: Heparin VIAL(*) 5000 UNITS/ML VIAL (FIVE THOUSAND) SUBCUT SCH ×3 (00:24→16:01)
[2017-04-23] MEDS: oxyCODONE/Acetamin 5/325 MG* TAB PO PRN ×3 (05:34→22:10)
[2017-04-23] MEDS: Multivitamins/Minerals TAB PO SCH (08:41)
[2017-04-23] MEDS: Calcium/Vitamin D TAB 250/125* TAB PO SCH (08:41)
[2017-04-23] MEDS: Magnesium Oxide TAB* 400 MG PO SCH (08:41)
--- NOTE | 2017-04-23 10:29 | PN ---
Progress Note - Progress Note Date of Service: 04/23/17 Note: Sore this morning after doing left hip flexor exercises last night. No chest pain, shortness of breath or abdominal pain. Nursing and therapy notes reviewed. Acetaminophen (Tylenol Tab*) 650 mg PO Q6H PRN PRN Reason: FEVER > 101 Al Hydrox/Mg Hydrox/Simethicone (Maalox Plus*) 30 ml PO Q6H PRN PRN Reason: INDIGESTION Bisacodyl (Dulcolax Supp*) 10 mg [place] DAILY PRN PRN Reason: CONSTIPATION Calcium/Vitamin D (Oscal D Tab 250/125*) 1 tab PO DAILY [facility] Last Admin: 04/23/17 08:41 Dose: 1 tab Docusate Sodium (Colace Cap*) 100 mg PO BID PRN PRN Reason: CONSTIPATION Heparin Sodium (Porcine) (Heparin Vial(*)) 5,000 units SUBCUT 0000,0800,1600 [facility] Last Admin: 04/23/17 08:42 Dose: 5,000 units Magnesium Hydroxide (Milk Of Magnesia Liq*) 30 ml PO Q6H PRN PRN Reason: CONSTIPATION Magnesium Oxide (Magox 400 Tab*) 500 mg PO DAILY [facility] PRN Reason: Protocol Last Admin: 04/23/17 08:41 Dose: 500 mg Multivitamins/Minerals (Theragran/Minerals Tab*) 1 tab PO DAILY [facility] Last Admin: 04/23/17 08:41 Dose: 1 tab Oxycodone/Acetaminophen (Percocet 5/325 Tab*) 1 tab PO Q4H PRN PRN Reason: PAIN Last Admin: 04/23/17 05:34 Dose: 1 tab Senna (Senokot Tab*) 2 tab PO BEDTIME PRN PRN Reason: CONSTIPATION Tramadol HCl (Ultram*) 50 mg PO Q6H PRN PRN Reason: breakthrough pain Last Admin: 04/22/17 11:54 Dose: 50 mg Vital Signs 04/22/17 04/22/17 04/22/17 11:54 13:06 14:06 Temperature Pulse Rate Respiratory 20 18 Rate Blood Pressure (mmHg) O2 Sat by Pulse 98 Oximetry 04/22/17 04/22/17 04/22/17 15:11 16:24 21:32 Temperature 98.0 F Pulse Rate 73 Respiratory 16 16 Rate Blood Pressure 102/58 (mmHg) O2 Sat by Pulse 97 97 Oximetry 04/23/17 04/23/17 04/23/17 00:23 00:29 05:06 Temperature 98.2 F Pulse Rate 77 Respiratory 17 18 Rate Blood Pressure 108/51 (mmHg) O2 Sat by Pulse 97 97 Oximetry 04/23/17 04/23/17 04/23/17 05:34 07:29 08:56 Temperature 98.4 F Pulse Rate 80 Respiratory 17 18 Rate Blood Pressure 118/56 (mmHg) O2 Sat by Pulse 96 96 Oximetry PE: Gen: no acute distress. Alert and appropriate. Lungs: clear to auscultation bilaterally. CV: regular rate and rhythm. Abd: +bs, soft, non-tender, non-distended. Ext: no edema. Left knee immobilizer on. IMPRESSION: A 81-year-old woman with left mid shaft femur fracture, likely pathologic, and new left lung mass, awaiting biopsy results. PLAN: 1. Left femur fracture. Continue with 50% weightbearing and knee immobilizer for transfers and ambulation. She is to follow up with Dr. Mitchell. 2. Left lung mass. Await pathology results from ultrasound-guided biopsy on . Follow up with Dr. Randhawa and Oncology/Dr. Tomas for staging if confirmed carcinoma. Scheduled for bronchoscopy with Dr. Randhawa on Monday, unless metastatic disease is confirmed another way before this (PET or bone scan). 3. DVT prophylaxis. Continue subcutaneous heparin for now until she is completed with procedures and then discuss with Hematology/Oncology a better plan for her DVT prophylaxis that she can continue easily at home. 4. Impaired mobility. Physical Therapy for bed mobility, transfer, and gait training using a rolling walker. 5. Impaired self-care. Occupational Therapy for ADL training and equipment evaluation. She will need to learn how to manage the knee immobilizer. 6. Questionable impaired cognition with some forgetfulness. Speech Therapy to do cognitive evaluation on her Monday. 7. Advanced directives. For now, she desires a full code. She has a living will at home that is not here in the hospital. She may revisit her code status , pending the biopsy results. Her healthcare proxies are her son and daughter if she cannot make decisions for herself. 8. Estimated length of stay. Anticipate discharge 05/02/17.
[2017-04-24] MEDS: Heparin VIAL(*) 5000 UNITS/ML VIAL (FIVE THOUSAND) SUBCUT SCH ×3 (00:05→17:04)
[2017-04-24] MEDS: oxyCODONE/Acetamin 5/325 MG* TAB PO PRN ×5 (05:38→22:01)
[2017-04-24] MEDS: Calcium/Vitamin D TAB 250/125* TAB PO SCH (08:05)
[2017-04-24] MEDS: Magnesium Oxide TAB* 400 MG PO SCH (08:05)
[2017-04-24] MEDS: Multivitamins/Minerals TAB PO SCH (08:05)
--- NOTE | 2017-04-24 17:24 | PN ---
Progress Note - Progress Note Date of Service: 04/24/17 Note: Patient visited. Therapy notes read and reviewed. She notes some pain and also constipation although chart notes seem to indicate a BM yesterday. Current Medications Acetaminophen (Tylenol Tab*) 650 mg PO Q6H PRN PRN Reason: FEVER > 101 Al Hydrox/Mg Hydrox/Simethicone (Maalox Plus*) 30 ml PO Q6H PRN PRN Reason: INDIGESTION Bisacodyl (Dulcolax Supp*) 10 mg [place] DAILY PRN PRN Reason: CONSTIPATION Calcium/Vitamin D (Oscal D Tab 250/125*) 1 tab PO DAILY [facility] Last Admin: 04/24/17 08:05 Dose: 1 tab Docusate Sodium (Colace Cap*) 100 mg PO BID PRN PRN Reason: CONSTIPATION Heparin Sodium (Porcine) (Heparin Vial(*)) 5,000 units SUBCUT 0000,0800,1600 [facility] Last Admin: 04/24/17 17:04 Dose: 5,000 units Magnesium Hydroxide (Milk Of Magnesia Liq*) 30 ml PO Q6H PRN PRN Reason: CONSTIPATION Magnesium Oxide (Magox 400 Tab*) 500 mg PO DAILY [facility] PRN Reason: Protocol Last Admin: 04/24/17 08:05 Dose: 500 mg Multivitamins/Minerals (Theragran/Minerals Tab*) 1 tab PO DAILY [facility] Last Admin: 04/24/17 08:05 Dose: 1 tab Oxycodone/Acetaminophen (Percocet 5/325 Tab*) 1 tab PO Q4H PRN PRN Reason: PAIN Last Admin: 04/24/17 13:35 Dose: 1 tab Senna (Senokot Tab*) 2 tab PO BEDTIME PRN PRN Reason: CONSTIPATION Tramadol HCl (Ultram*) 50 mg PO Q6H PRN PRN Reason: breakthrough pain Last Admin: 04/22/17 11:54 Dose: 50 mg Vital Signs Temp Pulse Resp BP Pulse Ox 97.7 F 67 18 97/54 97 04/24/17 15:35 04/24/17 15:35 04/24/17 16:23 04/24/17 15:35 04/24/17 15:35 EXAM: LUNGS: Clear bilaterally HEART: reg rhythm ABDOMEN: Soft +BS EXTREMITIES: hip wound clean ASSESSMENT/PLAN: 1. Left femur fracture: PT/OT. I clarified with Dr. Mitchell her knee immobilizer can be removed for bathing 2. Lung Mass: Biopsy results pending 3. DVT prophylaxis: Heparin S/Q 4. Advanced directives: Full code 5. Constipation: laxatives as needed 6. Analgesia: Percocet for now. May need a muscle relaxant
[2017-04-24] MEDS: Docusate CAP* 100 MG PO PRN (20:02)
[2017-04-25] MEDS: Heparin VIAL(*) 5000 UNITS/ML VIAL (FIVE THOUSAND) SUBCUT SCH ×3 (00:20→16:34)
[2017-04-25] MEDS: oxyCODONE/Acetamin 5/325 MG* TAB PO PRN ×5 (03:47→22:07)
[2017-04-25] MEDS: Calcium/Vitamin D TAB 250/125* TAB PO SCH (08:49)
[2017-04-25] MEDS: Magnesium Oxide TAB* 400 MG PO SCH (08:49)
[2017-04-25] MEDS: Multivitamins/Minerals TAB PO SCH (08:49)
--- NOTE | 2017-04-25 12:39 | PMRUTEAM ---
PMRU: Goals Current Status: Nursing: Current Status Skin Deviations [Left Leg] Incision Skin Deviations [Left Neck] Other Skin Deviation Description [ DEBRA Left Leg] Skin Deviation Description [ biopsy site Left Neck] Bladder Current Status continent Bowel Current Status continent, last BM 04/23/17, no bowel meds needed Nutrition Current Status adequate, small portions, snacks as needed Medication Current Status supervision Physical Therapy: Current Status Bed Mobility Assistance Supervision Transfer Moblility Assistance Supervision,Contact Guard Assist Transfer/Bed Mobility Rolling Walker Recommended Devices Ambulation Assistance Contact Guard Assist Ambulation Assistive Devices Rolling Walker Number of Feet Patient 110 Ambulated Stairs Assistance Independent Stairs Recommended Devices Two Rails Number of Stairs 3 Occupational Therapy: Current Status Upper Body Dressing Supervision Lower Body Dressing Contact Guard Assist Bathing Contact Guard Assist Toileting Contact Guard Assist Toilet Transfer Contact Guard Assist Shower Transfer Contact Guard Assist Eating Independent Rec Therapy: Current Status Summary of Assessment and RT assessment complete and pt. is aware of RT Clinical Impression services. Pt. identifies with interests and active involvement in them prior to admission. Pt . has leisure material in her room and is open to continued leisure visits. Treatment Goals Pt. will engage in leisure activities while on the unit. Treatment Plan Provide RT services and encourage involvement. Social Work: Current Status Discharge Plan return to the community and stay with a friend and receive home care svs as needed Potential for Family Training TBD Anticipated Discharge Home Destination Discharge With VNS and support from friends Nutrition: Current Status Monitoring Pt w/L femur fx and new lung mass, awaiting bx results. Eating independently, 75-100% of meals on reuglar diet. Last BM 04/23. Meds and labs reviewed. Full nutrition assessment to follow per protocol. Goals: Physical Therapy: Initial Goals Bed Mobility Assistance Independent Transfer Mobility Assistance Independent Transfer/Bed Mobility Rolling Walker Recommended Devices Ambulation Independent Ambulation Recommended Devices Rolling Walker Ambulation Distance 150 Physical Therapy: Updated Goals Bed Mobility Assistance Independent Transfer Mobility Assistance Independent Transfer/Bed Mobility Rolling Walker Recommended Devices Ambulation Assistance Independent Ambulation Assistive Devices Rolling Walker Ambulation Distance (ft) 150 Occupational Therapy: Initial Goals Goals to be Completed in (Days 7-10 ) Upper Body Bathing Routine Independent Lower Body Bathing Routine Modified Independent with Upper Body Dressing Routine Independent Lower Body Dressing Routine Modified Independent with Toilet Hygeine and Clothing Modified Independent with Management Routine Toilet Transfer Routine Modified Independent with Step-In Shower Transfer Supervision/Set Up Routine Functional Transfers for ADL Modified Independent with Grooming Routine Independent Feeding Routine Independent Nursing: Goals Bladder Goal continent Bowel Goal continent, bowel regularity Nutrition Goal 100% Medication Goal independent Nutrition: Goals Intervention Goals 1. Intake will remain adequate to maintain stable body wt 2. Pt will maintain regular bowel pattern without constipation (or diarrhea) Social Work: Goals Discharge Plan return to the community and stay with a friend and receive home care svs as needed Potential for Family Training TBD Anticipated Discharge Home Destination Discharge With VNS and support from friends Care Plan: Care Plan ADL's - Improve/Maintain Start: 04/21/17 21:28 Freq: DAILY Status: Active Target: Protocol: Activity Type Activity Date Activity User E-Sign Co-Sign Detail Recorded Client Recorded Date Recorded By Document 04/24/17 10:42 [id number] [facility] [id number] 04/24/17 10:42 [id number] 04/24/17 10:42 PMRU Outcome: ADL's/ADL Transfers Orders/Interventions Occupational Therapy Evaluation & Treatment Communication Tool in Patient Room Device No Patient to receive OT 5x/wk for 60-120 Therex min/day Self Care Management Group Therapy UE/LE ADL's with Assist Yes: mod I ADL Transfers with Assist Yes: mod I Toileting: Transfers,Clothing Management Yes: mod I ,Hygeine w/Assist Light Kitchen/Laundry w/Assist No Progression Toward Outcome/Goals Progressing Outcome/Goals Met Pt. continues to progress towards goals. Pt. demonstrates understanding and able to complete ADL routine with AE with assist. Therapy will continue to work on ADL routine and AE to maximize independence Coping/Psych-Improve/Maintain Start: 04/21/17 21:28 Freq: DAILY Status: Active Target: Protocol: Activity Type Activity Date Activity User E-Sign Co-Sign Detail Recorded Client Recorded Date Recorded By Document 04/25/17 02:05 [id number] 04/25/17 05:42 [id number] 04/25/17 02:05 PMRU Outcome: Coping/Psychosocial Coping Outcome/Goals Verbalization of Acceptance of Rehab Admit Utilization of Appropriate Problem Solving Techniques Willingness to Participate in Treatment Plan and Basic Needs Utilization of Available Support Systems Psychosocial Outcome/Goals Maintain/ Improve Emotional Health Demonstrates Knowledge of Healthy Coping Mechanisms Available Cooperate/ Participate in Plan Progression Toward Outcome/Goals - Progressing Coping Progression Toward Outcome/Goals - Progressing Psychosocial Discharge Planning - Improve/Maintain Start: 04/21/17 21:28 Freq: DAILY Status: Active Target: Protocol: Activity Type Activity Date Activity User E-Sign Co-Sign Detail Recorded Client Recorded Date Recorded By Document 04/23/17 14:02 [id number] 04/23/17 14:23 [id number] 04/23/17 14:02 PMRU Outcome: Discharge Planning Identify Patient Needs yes Update Patient Family No Outcome/Goals Demonstrates Understanding of Discharge Plan Homecare Referral - See Comment Progression Toward Outcome/Goals Progressing Education-Improve/Maintain Start: 04/21/17 21:28 Freq: DAILY Status: Active Target: Protocol: Activity Type Activity Date Activity User E-Sign Co-Sign Detail Recorded Client Recorded Date Recorded By Document 04/25/17 02:05 [id number] 04/25/17 05:42 [id number] 04/25/17 02:05 PMRU Outcome: Education Outcome/Goals Demonstrate/ Verbalize Understanding of Written Discharge Instructions Demonstrates Skills Encourage Questions Progression Toward Outcome/Goals Progressing Mobility- Improve/Maintain Start: 04/21/17 21:28 Freq: DAILY Status: Active Target: Protocol: Activity Type Activity Date Activity User E-Sign Co-Sign Detail Recorded Client Recorded Date Recorded By Document 04/22/17 15:10 [id number] 04/22/17 15:11 [id number] 04/22/17 15:10 PMRU Outcome: Mobility Physical Therapy Evaluation and Yes Treatment Activity OOB with Assistance Yes Device Yes Assistance Yes Patient to be seen 5x/wk for 60-120 min/ Therex day for: Mobility Training Gait Training Balance Outcome/Goals Maintain/ Achieve Baseline Mobility Status Improve Mobility Status Demonstrates Proper Use of Assistive Devices Free from Complications of Immobility Bed Mobility Yes: independent Transfers Yes: independent with rolling walker. Gait x ft independent with rolling walker 150' Pain/Comfort- Improve/Maintain Start: 04/21/17 21:28 Freq: DAILY Status: Active Target: Protocol: Activity Type Activity Date Activity User E-Sign Co-Sign Detail Recorded Client Recorded Date Recorded By Document 04/25/17 02:05 [id number] 04/25/17 05:42 [id number] 04/25/17 02:05 PMRU Outcome: Pain/Comfort Outcome/Goals Demonstrates Knowledge and Use of Available Comfort Measures Achieves Acceptable Comfort/Pain Level as Determined by Patient/Condit Maintain Comfort Level Allowing Patient to Fully Participate in Rehab Progression Toward Outcome/Goals Progressing Safety- Improve/Maintain Start: 04/21/17 21:28 Freq: DAILY Status: Active Target: Protocol: Activity Type Activity Date Activity User E-Sign Co-Sign Detail Recorded Client Recorded Date Recorded By Document 04/25/17 02:05 [id number] 04/25/17 05:42 [id number] 04/25/17 02:05 PMRU Outcome: Safety Outcome/Goals Remain Free of Injury or Harm Prevent Falls/ Injury Progression Toward Outcome/Goals Progressing Skin- Improve/Maintain Start: 04/21/17 21:28 Freq: DAILY Status: Active Target: Protocol: Activity Type Activity Date Activity User E-Sign Co-Sign Detail Recorded Client Recorded Date Recorded By Document 04/25/17 02:05 [id number] [id number] 04/25/17 05:42 [id number] 04/25/17 02:05 PMRU Outcome: Skin Skin Risk Level Medium Skin Orders Dressing Change Heels Off Bed Outcome/Goals Maintain/ Improve Skin Intergrity Surgical Incisions Healing Progression Toward Outcome/Goals Progressing Medicine Note: Length of Stay: 1 week Anticipated Discharge Destination: Home Tentative Discharge Date: 05/02/17 Discharged to: home
--- NOTE | 2017-04-25 17:30 | PN ---
Progress Note - Progress Note Date of Service: 04/25/17 Note: Dafne was visited. She was discussed in interdisciplinary team rounds. Dr. 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 Dr. Tomas will be in tomorrow. She will have a bronchoscopy tomorrow to assist in staging. The patient is calm, but the news has understandably shaken her. Current Medications Acetaminophen (Tylenol Tab*) 650 mg PO Q6H PRN PRN Reason: FEVER > 101 Al Hydrox/Mg Hydrox/Simethicone (Maalox Plus*) 30 ml PO Q6H PRN PRN Reason: INDIGESTION Bisacodyl (Dulcolax Supp*) 10 mg [place] DAILY PRN PRN Reason: CONSTIPATION Calcium/Vitamin D (Oscal D Tab 250/125*) 1 tab PO DAILY [facility] Last Admin: 04/25/17 08:49 Dose: 1 tab Docusate Sodium (Colace Cap*) 100 mg PO BID PRN PRN Reason: CONSTIPATION Last Admin: 04/24/17 20:02 Dose: 100 mg Heparin Sodium (Porcine) (Heparin Vial(*)) 5,000 units SUBCUT 0000,0800,1600 [facility] Last Admin: 04/25/17 16:34 Dose: 5,000 units Magnesium Hydroxide (Milk Of Magnesia Liq*) 30 ml PO Q6H PRN PRN Reason: CONSTIPATION Magnesium Oxide (Magox 400 Tab*) 500 mg PO DAILY [facility] PRN Reason: Protocol Last Admin: 04/25/17 08:49 Dose: 500 mg Multivitamins/Minerals (Theragran/Minerals Tab*) 1 tab PO DAILY [facility] Last Admin: 04/25/17 08:49 Dose: 1 tab Oxycodone/Acetaminophen (Percocet 5/325 Tab*) 1 tab PO Q4H PRN PRN Reason: PAIN Last Admin: 04/25/17 17:23 Dose: 1 tab Senna (Senokot Tab*) 2 tab PO BEDTIME PRN PRN Reason: CONSTIPATION Tramadol HCl (Ultram*) 50 mg PO Q6H PRN PRN Reason: breakthrough pain Last Admin: 04/22/17 11:54 Dose: 50 mg Vital Signs Temp Pulse Resp BP Pulse Ox 98.4 F 80 18 109/55 96 04/25/17 15:37 04/25/17 15:37 04/25/17 17:23 04/25/17 15:37 04/25/17 15:37 EXAM: LUNGS: Clear bilaterally HEART: reg rhythm ABDOMEN: Soft +BS EXTREMITIES: hip wound clean ASSESSMENT/PLAN: 1. Left femur fracture: PT/OT. Knee immobilizer for comfort 2. Lung Mass: Biopsy results as above. Oncology and pulmonary followup 3. DVT prophylaxis: Heparin S/Q 4. Advanced directives: Full code 5. Constipation: laxatives as needed 6. Analgesia: Percocet for now. May need a muscle relaxant
--- NOTE | 2017-04-25 19:10 | PN ---
Progress Note - Progress Note Date of Service: 04/25/17 - Pulm consult f/u Note: Pt seen and examined at bedside this am. Pt reports feeling good and bad. Reports that she heard about biopsy results. Pain is better in her Lt LE and she was able to walk to rest room. Active Medications Generic Name Dose Route Start Last Admin Trade Name Freq PRN Reason Stop Dose Admin Acetaminophen 650 mg 04/21/17 13:33 Tylenol Tab* PO Q6H PRN FEVER > 101 Al Hydrox/Mg Hydrox/Simethicone 30 ml 04/21/17 13:33 Maalox Plus* PO Q6H PRN INDIGESTION Bisacodyl 10 mg 04/21/17 13:33 Dulcolax Supp* [place] DAILY PRN CONSTIPATION Calcium/Vitamin D 1 tab 04/22/17 09:30 04/25/17 08:49 Oscal D Tab 250/125* PO 1 tab DAILY [facility] Administration Docusate Sodium 100 mg 04/22/17 09:22 04/24/17 20:02 Colace Cap* PO 100 mg BID PRN Administration CONSTIPATION Heparin Sodium (Porcine) 5,000 units 04/21/17 16:00 04/25/17 16:34 Heparin Vial(*) SUBCUT 5,000 units 0000,0800,1600 [facility] Administration Magnesium Hydroxide 30 ml 04/21/17 13:33 Milk Of Magnesia Liq* PO Q6H PRN CONSTIPATION Magnesium Oxide 500 mg 04/22/17 10:00 04/25/17 08:49 Magox 400 Tab* PO 500 mg DAILY [facility] Administration Protocol Multivitamins/Minerals 1 tab 04/22/17 09:45 04/25/17 08:49 Theragran/Minerals Tab* PO 1 tab DAILY [facility] Administration Oxycodone/Acetaminophen 1 tab 04/21/17 13:42 04/25/17 17:23 Percocet 5/325 Tab* PO 1 tab Q4H PRN Administration PAIN Senna 2 tab 04/21/17 13:33 Senokot Tab* PO BEDTIME PRN CONSTIPATION Tramadol HCl 50 mg 04/21/17 13:42 04/22/17 11:54 Ultram* PO 50 mg Q6H PRN Administration breakthrough pain Vital Signs Temp Pulse Resp BP Pulse Ox 98.4 F 80 18 109/55 96 04/25/17 15:37 04/25/17 15:37 12/05/17 17:23 04/25/17 15:37 04/25/17 17:32 O/E: Pt in NAD HEENT: PERRLA Lungs: Diminished air entry at lt apex, no wheeze, no crackles CVS: S1, S2+ Abd: Soft, BS+ Ext: Lt LE dressing intact Neuro: No focal defecits U/S guided lt lung biopsy: Poorly differentiated adenocarcinoma I/R: 81 y o f non-smoker admitted after possible pathological fracture of Lt femur s/p ORIF found to have large lt apical mass s/p biopsy suggestive of adenocarcinoma Biopsy results reviewed with pt in detail Results also discussed with pts daughter over phone, Pts son not available this am Need for further staging was discussed Bronchoscopy/EBUS planned for 04/26/17 for evaluation of endobronchial lesion, evaluate need for radiation and lymph node staging Procedure was discussed in detail Associated risks and benefits were discussed in detail with pt and her daughter Pt agreeable to procedure Pt had many questions regarding further procedures and treatment options She has expressed understanding She doesnot want to pursue treatment unless it would improve her quality of life NPO after midnight for bronchoscopy in am Discussed with pts RN Total time spent at bedside 35 min, with additional 20 min in discussion with pts daughter over phone
[2017-04-25] MEDS: Docusate CAP* 100 MG PO PRN (22:08)
[2017-04-26] MEDS: Heparin VIAL(*) 5000 UNITS/ML VIAL (FIVE THOUSAND) SUBCUT SCH ×3 (00:29→15:47)
[2017-04-26] MEDS: oxyCODONE/Acetamin 5/325 MG* TAB PO PRN ×4 (04:58→22:28)
[2017-04-26 08:22] LABS: Hematocrit 36 % (35-47); Hemoglobin 12.4 g/dl (12.0-16.0); Mean Corpuscular HGB Conc 34 g/dl (31-36); Mean Corpuscular Hemoglobin 34 pg (27-31); Mean Corpuscular Volume 98 fL (80-97); Mean Platelet Volume 7 um3 (7.4-10.4); Red Blood Count 3.68 10^6/ul (4.0-5.4); Red Cell Distribution Width 13 % (10.5-15)
[2017-04-26 08:30] LABS: Albumin 3.4 g/dL (3.2-5.2); BUN/Creatinine Ratio 20.3 (8-20); Calcium 9.1 mg/dL (8.6-10.3); EGFR African American 97.4 (>60); EGFR Non-African American 75.7 (>60); Globulin 2.9 g/dL (2-4); Potassium 4.2 mmol/L (3.5-5.0); Total Bilirubin 0.5 mg/dL (0.2-1.0); Total Protein 6.3 g/dL (6.4-8.9)
[2017-04-26] MEDS: Magnesium Oxide TAB* 400 MG PO SCH (10:00)
[2017-04-26] MEDS: Multivitamins/Minerals TAB PO SCH (10:00)
[2017-04-26] MEDS: Calcium/Vitamin D TAB 250/125* TAB PO SCH (10:00)
--- NOTE | 2017-04-26 13:03 | PN ---
Progress Note - Progress Note Date of Service: 04/26/17 - Pulm f/u note Note: Pt seen and examined at bedside. No new complaints. Has coughed up mucus plug this am. Reports dry nose and epistaxis when she blows her nose Active Medications Generic Name Dose Route Start Last Admin Trade Name Freq PRN Reason Stop Dose Admin Acetaminophen 650 mg 04/21/17 13:33 Tylenol Tab* PO Q6H PRN FEVER > 101 Al Hydrox/Mg Hydrox/Simethicone 30 ml 04/21/17 13:33 Maalox Plus* PO Q6H PRN INDIGESTION Bisacodyl 10 mg 04/21/17 13:33 Dulcolax Supp* [place] DAILY PRN CONSTIPATION Calcium/Vitamin D 1 tab 04/22/17 09:30 04/26/17 10:00 Oscal D Tab 250/125* PO Not Given DAILY [facility] Docusate Sodium 100 mg 04/22/17 09:22 04/25/17 22:08 Colace Cap* PO 100 mg BID PRN Administration CONSTIPATION Heparin Sodium (Porcine) 5,000 units 04/21/17 16:00 04/26/17 08:15 Heparin Vial(*) SUBCUT Not Given 0000,0800,1600 [facility] Magnesium Hydroxide 30 ml 04/21/17 13:33 Milk Of Magnesia Liq* PO Q6H PRN CONSTIPATION Magnesium Oxide 500 mg 04/22/17 10:00 04/26/17 10:00 Magox 400 Tab* PO Not Given DAILY [facility] Protocol Multivitamins/Minerals 1 tab 04/22/17 09:45 04/26/17 10:00 Theragran/Minerals Tab* PO Not Given DAILY [facility] Oxycodone/Acetaminophen 1 tab 04/21/17 13:42 04/26/17 09:55 Percocet 5/325 Tab* PO 1 tab Q4H PRN Administration PAIN Senna 2 tab 04/21/17 13:33 Senokot Tab* PO BEDTIME PRN CONSTIPATION Tramadol HCl 50 mg 04/21/17 13:42 04/22/17 11:54 Ultram* PO 50 mg Q6H PRN Administration breakthrough pain Vital Signs Temp Pulse Resp BP Pulse Ox 98.6 F 80 18 130/53 98 04/26/17 04:59 04/26/17 04:59 04/26/17 09:55 04/26/17 04:59 04/26/17 04:59 O/E: Pt in NAD, AAOx4 HEENT: PERRLA, No JVD Lungs: Diminished air entry at lt apex, no wheeze, no crackles CVS: S1, S2+, regular Abd: Soft, BS+ Ext: Lt LE dressing intact Neuro: No focal defecits Laboratory Results - last 24 hr 04/26/17 04/26/17 07:57 07:58 WBC 8.0 RBC 3.68 L Hgb 12.4 Hct 36 MCV 98 H MCH 34 H MCHC 34 RDW 13 Plt Count 239 MPV 7 L Neut % (Auto) 58.0 Lymph % (Auto) 30.4 [place] % (Auto) 8.4 Eos % (Auto) 2.6 Baso % (Auto) 0.6 Absolute Neuts (auto) 4.6 Absolute Lymphs (auto) 2.4 Absolute Monos (auto) 0.7 Absolute Eos (auto) 0.2 Absolute Basos (auto) 0 Absolute Nucleated RBC 0.01 Nucleated RBC % 0.1 Sodium 137 Potassium 4.2 Chloride 102 Carbon Dioxide 29 Anion Gap 6 BUN 15 Creatinine 0.74 Est GFR ( Amer) 97.4 Est GFR (Non-Af Amer) 75.7 BUN/Creatinine Ratio 20.3 H Glucose 113 H Calcium 9.1 Total Bilirubin 0.50 AST 41 H ALT 49 Alkaline Phosphatase 79 Total Protein 6.3 L Albumin 3.4 Globulin 2.9 Albumin/Globulin Ratio 1.2 U/S guided lt lung biopsy: Poorly differentiated adenocarcinoma I/R: 81 y o f non-smoker admitted after possible pathological fracture of Lt femur s/p ORIF found to have large lt apical mass s/p biopsy suggestive of adenocarcinoma Bronchoscopy/EBUS planned for 04/26/17 for evaluation of endobronchial lesion, evaluate need for radiation and lymph node staging Procedure was discussed in detail, consent obtained Associated risks and benefits were discussed in detail with pt and her daughter yesterday Pt agreeable to procedure She will need PET scan as out pt
--- NOTE | 2017-04-26 19:11 | PN ---
Progress Note - Progress Note Date of Service: 04/26/17 Note: Dafne was visited. She had bronchoscopy/EBUS today. She will have a meeting with Dr. Tomas tomorrow. Voice is hoarse after bronchoscopy. Her pain is fairly well controlled. Current Medications Acetaminophen (Tylenol Tab*) 650 mg PO Q6H PRN PRN Reason: FEVER > 101 Al Hydrox/Mg Hydrox/Simethicone (Maalox Plus*) 30 ml PO Q6H PRN PRN Reason: INDIGESTION Bisacodyl (Dulcolax Supp*) 10 mg [place] DAILY PRN PRN Reason: CONSTIPATION Calcium/Vitamin D (Oscal D Tab 250/125*) 1 tab PO DAILY [facility] Last Admin: 04/26/17 10:00 Dose: Not Given Docusate Sodium (Colace Cap*) 100 mg PO BID PRN PRN Reason: CONSTIPATION Last Admin: 04/25/17 22:08 Dose: 100 mg Heparin Sodium (Porcine) (Heparin Vial(*)) 5,000 units SUBCUT 0000,0800,1600 [facility] Last Admin: 04/26/17 15:47 Dose: 5,000 units Magnesium Hydroxide (Milk Of Efrain Liq*) 30 ml PO Q6H PRN PRN Reason: CONSTIPATION Magnesium Oxide (Magox 400 Tab*) 500 mg PO DAILY [facility] PRN Reason: Protocol Last Admin: 04/26/17 10:00 Dose: Not Given Multivitamins/Minerals (Theragran/Minerals Tab*) 1 tab PO DAILY [facility] Last Admin: 04/26/17 10:00 Dose: Not Given Oxycodone/Acetaminophen (Percocet 5/325 Tab*) 1 tab PO Q4H PRN PRN Reason: PAIN Last Admin: 04/26/17 15:48 Dose: 1 tab Senna (Senokot Tab*) 2 tab PO BEDTIME PRN PRN Reason: CONSTIPATION Tramadol HCl (Ultram*) 50 mg PO Q6H PRN PRN Reason: breakthrough pain Last Admin: 04/22/17 11:54 Dose: 50 mg Laboratory Results - last 24 hr 04/26/17 04/26/17 07:57 07:58 WBC 8.0 RBC 3.68 L Hgb 12.4 Hct 36 MCV 98 H MCH 34 H MCHC 34 RDW 13 Plt Count 239 MPV 7 L Neut % (Auto) 58.0 Lymph % (Auto) 30.4 [place] % (Auto) 8.4 Eos % (Auto) 2.6 Baso % (Auto) 0.6 Absolute Neuts (auto) 4.6 Absolute Lymphs (auto) 2.4 Absolute Monos (auto) 0.7 Absolute Eos (auto) 0.2 Absolute Basos (auto) 0 Absolute Nucleated RBC 0.01 Nucleated RBC % 0.1 Sodium 137 Potassium 4.2 Chloride 102 Carbon Dioxide 29 Anion Gap 6 BUN 15 Creatinine 0.74 Est GFR ( Amer) 97.4 Est GFR (Non-Af Amer) 75.7 BUN/Creatinine Ratio 20.3 H Glucose 113 H Calcium 9.1 Total Bilirubin 0.50 AST 41 H ALT 49 Alkaline Phosphatase 79 Total Protein 6.3 L Albumin 3.4 Globulin 2.9 Albumin/Globulin Ratio 1.2 Vital Signs Temp Pulse Resp BP Pulse Ox 98.3 F 75 18 108/57 95 04/26/17 15:43 04/26/17 15:43 04/26/17 17:54 04/26/17 15:43 04/26/17 16:53 EXAM: LUNGS: Coarse bilaterally HEART: reg rhythm ABDOMEN: Soft +BS EXTREMITIES: hip wound clean ASSESSMENT/PLAN: 1. Left femur fracture: PT/OT. Knee immobilizer for comfort 2. Lung Cancer: Biopsy results as noted for adenocarcinoma. Await results of bronch. Oncology and pulmonary followup 3. DVT prophylaxis: Heparin S/Q 4. Advanced directives: Full code 5. Constipation: laxatives as needed 6. Analgesia: Percocet for now. May need a muscle relaxant
[2017-04-26] MEDS: Docusate CAP* 100 MG PO PRN (22:27)
[2017-04-27] MEDS: Heparin VIAL(*) 5000 UNITS/ML VIAL (FIVE THOUSAND) SUBCUT SCH ×3 (00:43→15:46)
[2017-04-27] MEDS: Multivitamins/Minerals TAB PO SCH (07:25)
[2017-04-27] MEDS: Calcium/Vitamin D TAB 250/125* TAB PO SCH (07:25)
[2017-04-27] MEDS: Magnesium Oxide TAB* 400 MG PO SCH (07:26)
[2017-04-27] MEDS: traMADol TAB* 50 MG PO PRN (07:27)
[2017-04-27] MEDS: oxyCODONE/Acetamin 5/325 MG* TAB PO PRN ×3 (09:36→22:32)
--- NOTE | 2017-04-27 10:24 | PN ---
Progress Note - Progress Note Date of Service: 04/27/17 SOAP: Subjective: doing well in rehab. had a bronchoscopy with biopsy yesterday. path pending. she has minor chest pain and hemoptysis postprocedurally. her leg pain is better and they are anticipating discharge on the . Objective: Vital Signs Temp Pulse Resp BP Pulse Ox 98.4 F 71 18 106/46 97 04/27/17 05:08 04/27/17 05:08 04/27/17 09:36 04/27/17 05:08 04/27/17 07:34 perr eomi op moist dec bs right apex soft nt +bs no le edema left leg dressing clean and dry A+O x 3, nonfocal grossly 04/26/17 04/26/17 07:57 07:58 WBC 8.0 RBC 3.68 L Hgb 12.4 Hct 36 MCV 98 H MCH 34 H MCHC 34 RDW 13 Plt Count 239 MPV 7 L Neut % (Auto) 58.0 Lymph % (Auto) 30.4 [place] % (Auto) 8.4 Eos % (Auto) 2.6 Baso % (Auto) 0.6 Absolute Neuts (auto) 4.6 Absolute Lymphs (auto) 2.4 Absolute Monos (auto) 0.7 Absolute Eos (auto) 0.2 Absolute Basos (auto) 0 Absolute Nucleated RBC 0.01 Nucleated RBC % 0.1 Sodium 137 Potassium 4.2 Chloride 102 Carbon Dioxide 29 Anion Gap 6 BUN 15 Creatinine 0.74 Est GFR ( Amer) 97.4 Est GFR (Non-Af Amer) 75.7 BUN/Creatinine Ratio 20.3 H Glucose 113 H Calcium 9.1 Total Bilirubin 0.50 AST 41 H ALT 49 Alkaline Phosphatase 79 Total Protein 6.3 L Albumin 3.4 Globulin 2.9 Albumin/Globulin Ratio 1.2 Acetaminophen (Tylenol Tab*) 650 mg PO Q6H PRN PRN Reason: FEVER > 101 Al Hydrox/Mg Hydrox/Simethicone (Maalox Plus*) 30 ml PO Q6H PRN PRN Reason: INDIGESTION Bisacodyl (Dulcolax Supp*) 10 mg [place] DAILY PRN PRN Reason: CONSTIPATION Calcium/Vitamin D (Oscal D Tab 250/125*) 1 tab PO DAILY [facility] Last Admin: 04/27/17 07:25 Dose: 1 tab Docusate Sodium (Colace Cap*) 100 mg PO BID PRN PRN Reason: CONSTIPATION Last Admin: 04/26/17 22:27 Dose: 100 mg Heparin Sodium (Porcine) (Heparin Vial(*)) 5,000 units SUBCUT 0000,0800,1600 [facility] Last Admin: 04/27/17 07:28 Dose: 5,000 units Magnesium Hydroxide (Milk Of Magnesia Liq*) 30 ml PO Q6H PRN PRN Reason: CONSTIPATION Magnesium Oxide (Magox 400 Tab*) 500 mg PO DAILY [facility] PRN Reason: Protocol Last Admin: 04/27/17 07:26 Dose: 500 mg Multivitamins/Minerals (Theragran/Minerals Tab*) 1 tab PO DAILY [facility] Last Admin: 04/27/17 07:25 Dose: 1 tab Oxycodone/Acetaminophen (Percocet 5/325 Tab*) 1 tab PO Q4H PRN PRN Reason: PAIN Last Admin: 04/27/17 09:36 Dose: 1 tab Senna (Senokot Tab*) 2 tab PO BEDTIME PRN PRN Reason: CONSTIPATION Tramadol HCl (Ultram*) 50 mg PO Q6H PRN PRN Reason: breakthrough pain Last Admin: 04/27/17 07:27 Dose: 50 mg Assessment: 81 yo never smoker presenting with a left femur fracture and 7 cm left lung mass. Unfortunately her leg fracture was not biopsied at the time of repair so we do not know if this was pathologic or not. We discussed that this could potentially alter management significantly. I would like to start with a PET scan when she is an outpatient (next Mon or ). If there is no evidence of other distant disease then I think we should treat her as localized disease ( depending on the lymph node status) and deal with her leg later (MRI at 6-8 weeks postop and consider biopsy if looks pathologic). If pathologic she would require postsurgical radiation therapy. We are also still waiting on EGFR status, and as a nonsmoker there is a nontrivial chance that this would be positive. In terms of port placement (she has been approached about this several times), I would defer until we know full staging and recommended treatment plan. She understands the rationale for this and is in agreement. I will see her shortly after her PET scan. >40 mins spent, >100% in face to face counseling
--- NOTE | 2017-04-27 17:24 | PN ---
Progress Note - Progress Note Date of Service: 04/27/17 Note: Dafne visited. Therapy notes read and reviewed. Dr. Tomas's note read and appreciated. The patient has expressed her wish that she does not wish to be resuscitated in case of medical emergency. I wrote a DNR order in chart, MOLST filled out. Her voice is still slightly hoarse. Current Medications Acetaminophen (Tylenol Tab*) 650 mg PO Q6H PRN PRN Reason: FEVER > 101 Al Hydrox/Mg Hydrox/Simethicone (Maalox Plus*) 30 ml PO Q6H PRN PRN Reason: INDIGESTION Bisacodyl (Dulcolax Supp*) 10 mg [place] DAILY PRN PRN Reason: CONSTIPATION Calcium/Vitamin D (Oscal D Tab 250/125*) 1 tab PO DAILY [facility] Last Admin: 04/27/17 07:25 Dose: 1 tab Docusate Sodium (Colace Cap*) 100 mg PO BID PRN PRN Reason: CONSTIPATION Last Admin: 04/26/17 22:27 Dose: 100 mg Heparin Sodium (Porcine) (Heparin Vial(*)) 5,000 units SUBCUT 0000,0800,1600 [facility] Last Admin: 04/27/17 15:46 Dose: 5,000 units Magnesium Hydroxide (Milk Of Magnesia Liq*) 30 ml PO Q6H PRN PRN Reason: CONSTIPATION Magnesium Oxide (Magox 400 Tab*) 500 mg PO DAILY [facility] PRN Reason: Protocol Last Admin: 04/27/17 07:26 Dose: 500 mg Multivitamins/Minerals (Theragran/Minerals Tab*) 1 tab PO DAILY [facility] Last Admin: 04/27/17 07:25 Dose: 1 tab Oxycodone/Acetaminophen (Percocet 5/325 Tab*) 1 tab PO Q4H PRN PRN Reason: PAIN Last Admin: 04/27/17 14:04 Dose: 1 tab Senna (Senokot Tab*) 2 tab PO BEDTIME PRN PRN Reason: CONSTIPATION Tramadol HCl (Ultram*) 50 mg PO Q6H PRN PRN Reason: breakthrough pain Last Admin: 04/27/17 07:27 Dose: 50 mg Vital Signs Temp Pulse Resp BP Pulse Ox 97.8 F 74 16 106/52 97 04/27/17 15:45 04/27/17 15:45 04/27/17 16:31 04/27/17 15:45 04/27/17 15:48 EXAM: LUNGS: Clearer bilaterally HEART: reg rhythm ABDOMEN: Soft +BS EXTREMITIES: hip wound clean ASSESSMENT/PLAN: 1. Left femur fracture: PT/OT. Knee immobilizer for comfort, may do NWB PROM exercises 2. Lung Cancer: Biopsy results as noted for adenocarcinoma. Await results of bronch. Oncology and pulmonary following 3. DVT prophylaxis: Heparin S/Q 4. Advanced directives: DNR. MOLST signed 5. Constipation: laxatives as needed 6. Analgesia: Percocet for now. May need a muscle relaxant
[2017-04-28] MEDS: Heparin VIAL(*) 5000 UNITS/ML VIAL (FIVE THOUSAND) SUBCUT SCH ×4 (00:38→23:34)
[2017-04-28] MEDS: traMADol TAB* 50 MG PO PRN ×2 (05:40→20:47)
--- NOTE | 2017-04-28 06:36 | PN ---
Progress Note - Progress Note Date of Service: 04/27/17 - Pulm consult note Note: Late entry of note from 04/27/17 Pt was seen and examined at bedside on 04/27/17 at 12:10 pm. Pt denied chest discomfort. Had cough productive of phleghm with streaks of blood following EBUS , resolved Active Medications Generic Name Dose Route Start Last Admin Trade Name Freq PRN Reason Stop Dose Admin Acetaminophen 650 mg 04/21/17 13:33 Tylenol Tab* PO Q6H PRN FEVER > 101 Al Hydrox/Mg Hydrox/Simethicone 30 ml 04/21/17 13:33 Maalox Plus* PO Q6H PRN INDIGESTION Bisacodyl 10 mg 04/21/17 13:33 Dulcolax Supp* [place] DAILY PRN CONSTIPATION Calcium/Vitamin D 1 tab 04/22/17 09:30 04/27/17 07:25 Oscal D Tab 250/125* PO 1 tab DAILY [facility] Administration Docusate Sodium 100 mg 04/22/17 09:22 04/26/17 22:27 Colace Cap* PO 100 mg BID PRN Administration CONSTIPATION Heparin Sodium (Porcine) 5,000 units 04/21/17 16:00 04/28/17 00:38 Heparin Vial(*) SUBCUT 5,000 units 0000,0800,1600 [facility] Administration Magnesium Hydroxide 30 ml 04/21/17 13:33 Milk Of Magnesia Liq* PO Q6H PRN CONSTIPATION Magnesium Oxide 500 mg 04/22/17 10:00 04/27/17 07:26 Magox 400 Tab* PO 500 mg DAILY [facility] Administration Protocol Multivitamins/Minerals 1 tab 04/22/17 09:45 04/27/17 07:25 Theragran/Minerals Tab* PO 1 tab DAILY [facility] Administration Oxycodone/Acetaminophen 1 tab 04/21/17 13:42 04/27/17 22:32 Percocet 5/325 Tab* PO 1 tab Q4H PRN Administration PAIN Senna 2 tab 04/21/17 13:33 Senokot Tab* PO BEDTIME PRN CONSTIPATION Tramadol HCl 50 mg 04/21/17 13:42 04/28/17 05:40 Ultram* PO 50 mg Q6H PRN Administration breakthrough pain Vital Signs Temp Pulse Resp BP Pulse Ox 97.5 F 94 18 129/57 94 04/28/17 05:39 12/08/17 05:39 04/28/17 05:40 04/28/17 05:39 04/28/17 05:39 O/E: Pt in NAD, AAOx4 HEENT: PERRLA, No JVD Lungs: Diminished air entry at lt apex, no wheeze, no crackles CVS: S1, S2+, regular Abd: Soft, BS+ Ext: Lt LE dressing intact Neuro: No focal defecits :Labs: No new labs Cytology from EBUS of R4 node- Metastatic adenocarcinoma U/S guided lt lung biopsy: Poorly differentiated adenocarcinoma I/R: 81 y o f non-smoker admitted after possible pathological fracture of Lt femur s/p ORIF found to have large lt apical mass s/p biopsy suggestive of adenocarcinoma Bronchoscopy/EBUS planned for 04/26/17 for evaluation of endobronchial lesion, evaluate need for radiation and lymph node staging Endobronchial lesion in [place] bronchus. R4(N3) node positive for metastatic disease, atleast StageIIIB from available data She will need PET scan as out pt to complete staging w/u Results were discussed with pt in detail Further management as per Oncology
[2017-04-28] MEDS: Multivitamins/Minerals TAB PO SCH (09:26)
[2017-04-28] MEDS: Calcium/Vitamin D TAB 250/125* TAB PO SCH (09:26)
[2017-04-28] MEDS: Magnesium Oxide TAB* 400 MG PO SCH (09:26)
[2017-04-28] MEDS: oxyCODONE/Acetamin 5/325 MG* TAB PO PRN ×3 (09:29→22:58)
--- NOTE | 2017-04-28 16:49 | PN ---
Progress Note - Progress Note Date of Service: 04/28/17 Note: Dafne visited. Therapy notes read and reviewed. Dr. Randhawa's note read and appreciated. She is trying to remain upbeat. She has been starting to move her leg. Current Medications Acetaminophen (Tylenol Tab*) 650 mg PO Q6H PRN PRN Reason: FEVER > 101 Al Hydrox/Mg Hydrox/Simethicone (Maalox Plus*) 30 ml PO Q6H PRN PRN Reason: INDIGESTION Bisacodyl (Dulcolax Supp*) 10 mg [place] DAILY PRN PRN Reason: CONSTIPATION Calcium/Vitamin D (Oscal D Tab 250/125*) 1 tab PO DAILY [facility] Last Admin: 04/28/17 09:26 Dose: 1 tab Docusate Sodium (Colace Cap*) 100 mg PO BID PRN PRN Reason: CONSTIPATION Last Admin: 04/26/17 22:27 Dose: 100 mg Heparin Sodium (Porcine) (Heparin Vial(*)) 5,000 units SUBCUT 0000,0800,1600 [facility] Last Admin: 04/28/17 09:26 Dose: 5,000 units Magnesium Hydroxide (Milk Of Magnesia Liq*) 30 ml PO Q6H PRN PRN Reason: CONSTIPATION Magnesium Oxide (Magox 400 Tab*) 500 mg PO DAILY [facility] PRN Reason: Protocol Last Admin: 04/28/17 09:26 Dose: 500 mg Multivitamins/Minerals (Theragran/Minerals Tab*) 1 tab PO DAILY [facility] Last Admin: 04/28/17 09:26 Dose: 1 tab Oxycodone/Acetaminophen (Percocet 5/325 Tab*) 1 tab PO Q4H PRN PRN Reason: PAIN Last Admin: 04/28/17 12:56 Dose: 1 tab Senna (Senokot Tab*) 2 tab PO BEDTIME PRN PRN Reason: CONSTIPATION Tramadol HCl (Ultram*) 50 mg PO Q6H PRN PRN Reason: breakthrough pain Last Admin: 04/28/17 05:40 Dose: 50 mg Vital Signs Temp Pulse Resp BP Pulse Ox 97.6 F 88 14 115/51 93 04/28/17 15:38 04/28/17 15:38 04/28/17 15:38 04/28/17 15:38 04/28/17 15:38 EXAM: LUNGS: Clearer bilaterally HEART: reg rhythm ABDOMEN: Soft +BS EXTREMITIES: hip wound clean ASSESSMENT/PLAN: 1. Left femur fracture: PT/OT. Knee immobilizer for comfort, may do NWB PROM exercises 2. Lung Cancer: Biopsy results as noted for adenocarcinoma. Await final results of bronch. Oncology and pulmonary following 3. DVT prophylaxis: Heparin S/Q 4. Advanced directives: DNR. MOLST signed 5. Constipation: laxatives as needed 6. Analgesia: Percocet for now.
[2017-04-29] MEDS: traMADol TAB* 50 MG PO PRN ×2 (06:14→19:03)
[2017-04-29] MEDS: Heparin VIAL(*) 5000 UNITS/ML VIAL (FIVE THOUSAND) SUBCUT SCH ×2 (07:55→16:59)
[2017-04-29] MEDS: Magnesium Oxide TAB* 400 MG PO SCH (08:13)
[2017-04-29] MEDS: Calcium/Vitamin D TAB 250/125* TAB PO SCH (08:13)
[2017-04-29] MEDS: Multivitamins/Minerals TAB PO SCH (08:13)
[2017-04-29] MEDS: Docusate CAP* 100 MG PO PRN (08:17)
--- NOTE | 2017-04-29 10:50 | PN ---
Progress Note - Progress Note Date of Service: 04/29/17 Note: Dafne visited. She is still having some bloody sputum after her bronchoscopy. Her pain is well controlled. She feels otherwise ok. Current Medications Acetaminophen (Tylenol Tab*) 650 mg PO Q6H PRN PRN Reason: FEVER > 101 Al Hydrox/Mg Hydrox/Simethicone (Maalox Plus*) 30 ml PO Q6H PRN PRN Reason: INDIGESTION Bisacodyl (Dulcolax Supp*) 10 mg [place] DAILY PRN PRN Reason: CONSTIPATION Calcium/Vitamin D (Oscal D Tab 250/125*) 1 tab PO DAILY [facility] Last Admin: 04/29/17 08:13 Dose: 1 tab Docusate Sodium (Colace Cap*) 100 mg PO BID PRN PRN Reason: CONSTIPATION Last Admin: 04/29/17 08:17 Dose: 100 mg Heparin Sodium (Porcine) (Heparin Vial(*)) 5,000 units SUBCUT 0000,0800,1600 [facility] Last Admin: 04/29/17 07:55 Dose: 5,000 units Magnesium Hydroxide (Milk Of Magnpanfilo Liq*) 30 ml PO Q6H PRN PRN Reason: CONSTIPATION Magnesium Oxide (Magox 400 Tab*) 500 mg PO DAILY [facility] PRN Reason: Protocol Last Admin: 04/29/17 08:13 Dose: 500 mg Multivitamins/Minerals (Theragran/Minerals Tab*) 1 tab PO DAILY [facility] Last Admin: 04/29/17 08:13 Dose: 1 tab Oxycodone/Acetaminophen (Percocet 5/325 Tab*) 1 tab PO Q4H PRN PRN Reason: PAIN Last Admin: 04/28/17 22:58 Dose: 1 tab Senna (Senokot Tab*) 2 tab PO BEDTIME PRN PRN Reason: CONSTIPATION Tramadol HCl (Ultram*) 50 mg PO Q6H PRN PRN Reason: breakthrough pain Last Admin: 04/29/17 06:14 Dose: 50 mg Vital Signs Temp Pulse Resp BP Pulse Ox 98.7 F 80 18 112/54 94 04/29/17 05:30 04/29/17 05:30 04/29/17 08:24 04/29/17 05:30 04/29/17 08:00 EXAM: LUNGS: Clearer bilaterally HEART: reg rhythm ABDOMEN: Soft +BS EXTREMITIES: hip wound clean ASSESSMENT/PLAN: 1. Left femur fracture: PT/OT. Knee immobilizer for comfort, may do NWB PROM exercises 2. Lung Cancer: Biopsy results as noted for adenocarcinoma. Oncology and pulmonary following 3. DVT prophylaxis: Heparin S/Q 4. Advanced directives: DNR. MOLST signed 5. Constipation: laxatives as needed 6. Analgesia: Percocet at night. She takes Tramadol during the day 7. Disposition: Home 05/02
[2017-04-29] MEDS: Acetaminophen TAB* 325 MG PO PRN (11:34)
[2017-04-29] MEDS: oxyCODONE/Acetamin 5/325 MG* TAB PO PRN (22:18)
[2017-04-30] MEDS: Heparin VIAL(*) 5000 UNITS/ML VIAL (FIVE THOUSAND) SUBCUT SCH ×3 (00:34→16:14)
[2017-04-30] MEDS: oxyCODONE/Acetamin 5/325 MG* TAB PO PRN ×2 (02:08→22:09)
[2017-04-30] MEDS: Acetaminophen TAB* 325 MG PO PRN (07:17)
[2017-04-30] MEDS: Magnesium Oxide TAB* 400 MG PO SCH (08:42)
[2017-04-30] MEDS: Calcium/Vitamin D TAB 250/125* TAB PO SCH (08:42)
[2017-04-30] MEDS: Multivitamins/Minerals TAB PO SCH (08:42)
[2017-04-30] MEDS: traMADol TAB* 50 MG PO PRN (13:09)
--- NOTE | 2017-04-30 16:13 | PN ---
Progress Note - Progress Note Date of Service: 04/30/17 Note: Dafne visited. She feels ready to go home on Monday but is a little anxious about the future. I think we can remove lin prior to discharge. Current Medications Acetaminophen (Tylenol Tab*) 650 mg PO Q6H PRN PRN Reason: FEVER > 101 Last Admin: 04/30/17 07:17 Dose: 650 mg Al Hydrox/Mg Hydrox/Simethicone (Maalox Plus*) 30 ml PO Q6H PRN PRN Reason: INDIGESTION Bisacodyl (Dulcolax Supp*) 10 mg [place] DAILY PRN PRN Reason: CONSTIPATION Calcium/Vitamin D (Oscal D Tab 250/125*) 1 tab PO DAILY [facility] Last Admin: 04/30/17 08:42 Dose: 1 tab Docusate Sodium (Colace Cap*) 100 mg PO BID PRN PRN Reason: CONSTIPATION Last Admin: 04/29/17 08:17 Dose: 100 mg Heparin Sodium (Porcine) (Heparin Vial(*)) 5,000 units SUBCUT 0000,0800,1600 [facility] Last Admin: 04/30/17 07:22 Dose: 5,000 units Magnesium Hydroxide (Milk Of Magnesia Liq*) 30 ml PO Q6H PRN PRN Reason: CONSTIPATION Magnesium Oxide (Magox 400 Tab*) 500 mg PO DAILY [facility] PRN Reason: Protocol Last Admin: 04/30/17 08:42 Dose: 500 mg Multivitamins/Minerals (Theragran/Minerals Tab*) 1 tab PO DAILY [facility] Last Admin: 04/30/17 08:42 Dose: 1 tab Oxycodone/Acetaminophen (Percocet 5/325 Tab*) 1 tab PO Q4H PRN PRN Reason: PAIN Last Admin: 04/30/17 02:08 Dose: 1 tab Senna (Senokot Tab*) 2 tab PO BEDTIME PRN PRN Reason: CONSTIPATION Tramadol HCl (Ultram*) 50 mg PO Q6H PRN PRN Reason: breakthrough pain Last Admin: 04/30/17 13:09 Dose: 50 mg Vital Signs Temp Pulse Resp BP Pulse Ox 97.8 F 79 16 113/63 96 04/30/17 15:15 04/30/17 15:15 04/30/17 15:15 04/30/17 15:15 04/30/17 15:15 EXAM: LUNGS: Clearer bilaterally HEART: reg rhythm ABDOMEN: Soft +BS EXTREMITIES: hip wound clean ASSESSMENT/PLAN: 1. Left femur fracture: PT/OT. Knee immobilizer for comfort, may do NWB PROM exercises 2. Lung Cancer: Biopsy results as noted for adenocarcinoma. Oncology and pulmonary following 3. DVT prophylaxis: Heparin S/Q 4. Advanced directives: DNR. MOLST signed 5. Constipation: laxatives as needed 6. Analgesia: Percocet at night. She takes Tramadol during the day 7. Disposition: Home 05/02
[2017-05-01] MEDS: Heparin VIAL(*) 5000 UNITS/ML VIAL (FIVE THOUSAND) SUBCUT SCH ×3 (00:25→16:44)
[2017-05-01] MEDS: traMADol TAB* 50 MG PO PRN (05:42)
[2017-05-01] MEDS: Multivitamins/Minerals TAB PO SCH (08:59)
[2017-05-01] MEDS: Calcium/Vitamin D TAB 250/125* TAB PO SCH (08:59)
[2017-05-01] MEDS: Magnesium Oxide TAB* 400 MG PO SCH (08:59)
[2017-05-01] MEDS: oxyCODONE/Acetamin 5/325 MG* TAB PO PRN ×2 (10:03→22:02)
[2017-05-01] MEDS: Acetaminophen TAB* 325 MG PO PRN (17:28)
--- NOTE | 2017-05-01 18:25 | PN ---
Progress Note - Progress Note Date of Service: 05/01/17 Note: Dafne visited. For discharge in am. Otherwise, she is doing about the same. Pain is fairly well controlled. Will send home on ASA for DVT prophylaxis as she is 2 weeks post op.
[2017-05-01] MEDS: Docusate CAP* 100 MG PO PRN (22:03)
[2017-05-02] MEDS: Heparin VIAL(*) 5000 UNITS/ML VIAL (FIVE THOUSAND) SUBCUT SCH ×2 (00:45→09:09)
[2017-05-02] MEDS: oxyCODONE/Acetamin 5/325 MG* TAB PO PRN ×3 (03:30→13:19)
[2017-05-02 06:20] VITALS: BP 133/58
[2017-05-02] MEDS: Acetaminophen TAB* 325 MG PO PRN (07:08)
[2017-05-02] MEDS ORDERED: Aspirin EC TAB* 325 MG PO SCH (09:00)
[2017-05-02] MEDS: Multivitamins/Minerals TAB PO SCH (09:05)
[2017-05-02] MEDS: Magnesium Oxide TAB* 400 MG PO SCH (09:06)
[2017-05-02] MEDS: Calcium/Vitamin D TAB 250/125* TAB PO SCH (09:06)
--- NOTE | 2017-05-06 11:04 | DS ---
CC: Dr. Dafne Tomas; Dr. Savannah Egan * DISCHARGE SUMMARY: DATE OF ADMISSION: 04/21/17 DATE OF DISCHARGE: 05/02/17 DISCHARGE DIAGNOSES: 1. Left femur fracture, possibly pathologic. 2. Left lung cancer. 3. Osteoporosis. HISTORY OF ILLNESS AND HOSPITAL COURSE: For complete history of the events leading up to her rehab stay, please see the history and physical dictated by Dr. Diane Keenan on 04/21/17. While on the rehab unit, her pathology reports came back from her lung mass. 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 She later had a bronchoscopy done with an EBUS by Dr. Randhawa. Following the bronchoscopy, she was slightly hoarse and had some bloody phlegm, but otherwise seemed to do okay. The patient's final staging will need to be done following discharge. The patient worked with Physical Therapy and Occupational Therapy while on the rehab unit. She made gains with both disciplines. With physical therapy at the time of admission, the patient required contact guard to do a transfer, contact guard to ambulate about 20 feet. She was partial weightbearing with physical therapy. With occupational therapy, she was supervision for upper body dressing, max assist for lower body dressing, moderate amount of assistance for bathing, moderate amount of assistance for toileting, contact guard for toilet transfers. By the time of discharge, the patient was independent transfers, independent ambulating 150 feet using a front wheeled walker. She did not do stairs. She was independent with all of her activities of daily living. She was discharged home on . DISCHARGE DIET: Regular. DISCHARGE MEDICATIONS: 1. Percocet 5/325 one tablet every 4 hours as needed for pain. 2. Tramadol 50 mg every 6 hours as needed for pain. 3. Aspirin 325 mg daily. 4. Tylenol as needed for pain. SERVICES AFTER DISCHARGE: Through the visiting nurse service. She will have home nursing, home physical therapy, and home health aide. Follow up with Dr. Crescencio Mitchell in 1 month as well as with Dr. Dafne Tomas for arrangement of a PET scan. [id number]/[facility] #: [id number] MTDMario
== END 2017-05-02 13:45 | disposition home or self-care (01) | DRG 560 ==
LOC: PMRU 15:28
PROVIDERS: ADMIT Physical Medicine & Rehabilitation; ATTEND Physical Medicine & Rehabilitation
PROC: F07Z5ZZ Bed Mobility Treatment (ICD-10-PCS; principal; 2017-04-21)
PROC: F07Z9ZZ Gait Training/Functional Ambulation Treatment (ICD-10-PCS; 2017-04-21)
PROC: F07Z8ZZ Transfer Training Treatment (ICD-10-PCS; 2017-04-21)
PROC: F08Z0ZZ Bathing/Showering Techniques Treatment (ICD-10-PCS; 2017-04-21)
PROC: F08Z1ZZ Dressing Techniques Treatment (ICD-10-PCS; 2017-04-21)
PROC: F08Z3ZZ Feeding/Eating Treatment (ICD-10-PCS; 2017-04-21)
DX: M84.452D Pathological fracture, left femur, subsequent encounter for fracture with routine healing (principal); C34.90 Malignant neoplasm of unspecified part of unspecified bronchus or lung; M19.90 Unspecified osteoarthritis, unspecified site; M85.80 Other specified disorders of bone density and structure, unspecified site; Z79.01 Long term (current) use of anticoagulants; Z79.1 Long term (current) use of non-steroidal anti-inflammatories (NSAID); Z79.899 Other long term (current) drug therapy; Z88.1 Allergy status to other antibiotic agents; Z88.8 Allergy status to other drugs, medicaments and biological substances; Z80.0 Family history of malignant neoplasm of digestive organs; R20.0 Anesthesia of skin; Z66 Do not resuscitate; K59.00 Constipation, unspecified
CPT/HCPCS: 36415; 80053; 85025; 99233; A9270-GY; J1644

== ENCOUNTER 2017-04-26 11:43 | Day surgery (SDC) | payer MEDICARE ==
[~2017-04-26 11:43] MED LIST: Buffered Lidocaine 0.9% SYRIN* 5 ML/SYR SYRINGE INTRADERM ONE; Dexamethasone IV* 4 MG/ML 1 ML (4 MG) IV SLOW PU ONE; Famotidine IV* 10 MG/ML 2 ML (20 mg) IV ONE
[2017-04-26] MEDS ORDERED: Famotidine IV* 10 MG/ML 2 ML (20 mg) ONE (11:46)
[2017-04-26] MEDS ORDERED: Buffered Lidocaine 0.9% SYRIN* 5 ML/SYR SYRINGE ONE (11:46)
[2017-04-26] MEDS ORDERED: Dexamethasone IV* 4 MG/ML 1 ML (4 MG) ONE (11:46)
[2017-04-26] MEDS ORDERED: fentaNYL* 50 MCG/ML 2 ML VIAL (100 MCG VIAL) IV PRN (12:44)
[2017-04-26] MEDS ORDERED: Ondansetron INJ* 2 MG/ML VIAL IV PRN (12:44)
[2017-04-26] MEDS ORDERED: fentaNYL* 50 MCG/ML 2 ML VIAL (100 MCG VIAL) ONE ×2 (12:49→13:21)
[2017-04-26] MEDS ORDERED: Atracurium* 10 MG/ML 10 ML VIAL ONE (12:49)
[2017-04-26] MEDS ORDERED: Propofol* 10 MG/ML 20 ML BTL IV PUSH ONE (12:50)
[2017-04-26] MEDS ORDERED: Ondansetron INJ* 2 MG/ML VIAL ONE (12:50)
[2017-04-26] MEDS ORDERED: Midazolam* 1 MG/ML 2 ML VIAL (2 MG) ONE (12:50)
[2017-04-26] MEDS ORDERED: EPHEDrine (Pressors)* 50 MG/ML VIAL ONE (12:50)
[2017-04-26] MEDS ORDERED: Lidocaine 2% PF * 5 ML VIAL ONE (12:50)
[2017-04-26] MEDS ORDERED: Phenylephrine IV* 40 MCG/ML 10 ML SYRINGE ONE (12:53)
[2017-04-26] MEDS ORDERED: Atropine 1MG/ML INJ* 1 ML VIAL ONE (13:29)
[2017-04-26] MEDS ORDERED: Glycopyrrolate IV* 0.2 MG/ML 1 ML VIAL ONE (13:29)
[2017-04-26 14:54] VITALS: BP 107/67
--- NOTE | 2017-04-26 19:51 | PRO ---
BRONCHOSCOPY REPORT: DATE OF PROCEDURE: 04/26/17 PROCEDURE PERFORMED: Bronchoscopy with endobronchial ultrasound-guided fine needle aspiration of R4 lymph node for lung cancer staging. PRE-PROCEDURAL DIAGNOSIS: Recently diagnosed adenocarcinoma of left lung, for staging. ANESTHESIA: General anesthesia. ANESTHESIOLOGIST: Dr. Aguilar, refer to anesthesiologist's note for further details. PROCEDURE IN DETAIL: Informed consent was obtained from the patient prior to the procedure after all the risks and benefits were thoroughly explained. Patient recently diagnosed with adenocarcinoma of the left lung. EBUS was scheduled for lymph node staging and for endobronchial evaluation. Procedure was performed under general anesthesia, intubated with size 8.0 endotracheal tube. Flexible bronchoscope was inserted through endotracheal tube for airway inspection. Right-sided airways were patent and opened with no endobronchial lesions. No secretions were noted. Bronchoscope was then inserted into the left endobronchial tree. Left main stem was free of endobronchial lesions. Mucosa was hyperemic and was bleeding to minimal suction. Bronchoscope was then advanced into the left upper lobe bronchus. Left upper lobe bronchus showed evidence of endobronchial lesion originating from the medial sub segment. The area was hyperemic and was bleeding to suction trauma. No lesions were noted in the left lower lobe bronchus. Bronchoscope was then withdrawn and EBUS bronchoscope was inserted. EBUS bronchoscope was stationed at L4 level and was sampled with four passes. First pass showed evidence of malignant cells on rapid on-site evaluation. Rest of the specimen was placed in CytoLyt. Minimal bleeding occurred and was suctioned out. Patient was extubated and seen in recovery in optimal condition. [id number]/CPS #: [id number] MTDD
== END 2017-04-26 14:56 ==
LOC: OR 11:43
PROVIDERS: ATTEND Internal Medicine
DX: C77.1 Secondary and unspecified malignant neoplasm of intrathoracic lymph nodes (principal); C34.12 Malignant neoplasm of upper lobe, left bronchus or lung; Z79.01 Long term (current) use of anticoagulants; Z88.1 Allergy status to other antibiotic agents; Z88.8 Allergy status to other drugs, medicaments and biological substances; S72.302D Unspecified fracture of shaft of left femur, subsequent encounter for closed fracture with routine healing; X58.XXXD Exposure to other specified factors, subsequent encounter; Y92.003 Bedroom of unspecified non-institutional (private) residence as the place of occurrence of the external cause
CPT/HCPCS: 88172; 88173; 88305; J0461; J1100; J2250; J2405; J2704; J3010